=== PATIENT | female | born 1980 | race Caucasian/White ===

== ENCOUNTER 2020-09-08 10:05 | Outpatient (REF) | payer OTHER, SELFPAY | END 2020-09-08 10:06 | disposition home or self-care (01) | LOC: HO.LAB 10:05 | PROVIDERS: Visit Provider Internal Medicine | DX: Z20.828 Contact with and (suspected) exposure to other viral communicable diseases (principal) | CPT/HCPCS: C9803; U0003 ==

== ENCOUNTER 2020-10-15 07:01 | Outpatient (REF) | payer OTHER, SELFPAY | END 2020-10-15 07:02 | disposition home or self-care (01) | LOC: HO.LAB 07:01 | PROVIDERS: PCP Internal Medicine; Visit Provider Internal Medicine | DX: Z20.828 Contact with and (suspected) exposure to other viral communicable diseases (principal) | CPT/HCPCS: C9803; U0003 ==

== ENCOUNTER 2020-11-20 06:46 | Outpatient (REF) | payer OTHER, SELFPAY ==
[2020-11-20 07:07] LABS: MANUAL DIFF FLAG NO
[2020-11-20 07:16] LABS: Basophils Percent Auto 0.3 % (0-2); Eosinophils Absolute Auto 0.2 X10*3/uL (0.0-0.4); Eosinophils Percent Auto 3.5 % (0-4); Hematocrit 39.5 % (37-47); Hemoglobin 12.7 g/dl (12.0-16.0); Imm Gran Abs Auto 0.01 X10*3/uL (0.00-0.03); Imm Gran Pct Auto 0.2 % (0.0-0.4); Lymphocytes Absolute Auto 2.8 X10*3/uL (1.2-4.9); Lymphocytes Percent Auto 44.3 % (20-40); Mean Corpuscular HGB Conc 32.2 g/dl (31.0-35.0); Mean Corpuscular Hemoglobin 28.7 pg (27.0-33.0); Mean Corpuscular Volume 89.4 fL (80-98); Mean Platelet Volume 9.7 fL (9.4-12.3); Monocytes Absolute Auto 0.4 X10*3/uL (0.1-1.2); Monocytes Percent Auto 6.3 % (2-11); Neutrophils Absolute Auto 2.9 X10*3/uL (2.0-8.3); Neutrophils Percent Auto 45.4 % (45-73); Platelet Count 258 X10*3/uL (160-400); Red Blood Count 4.42 X10*6/uL (4.20-5.50); Red Cell Distribution Width 12.6 % (11.0-16.0); White Blood Count 6.4 X10*3/uL (4.8-10.8)
[2020-11-20 07:37] LABS: Alanine Aminotransferase 11 U/L (0-31); Albumin Level 4.2 g/dL (3.5-5.0); Alkaline Phosphatase 60 U/L (39-117); Anion Gap 12 (12-20); Aspartate Amino Transferase 19 U/L (5-31); Bilirubin Total 0.4 mg/dL (0.0-1.0); Blood Urea Nitrogen 13 mg/dL (9-16); Calcium 8.8 mg/dL (8.4-10.2); Carbon Dioxide 29 mmol/L (22-29); Chloride 102 mmol/L (96-108); Cholesterol 183 mg/dL; Estimated Glomerular Filt Rate > 60; Glucose Random 84 mg/dL (60-115); HDL Cholesterol 51 mg/dL; LDL Cholesterol Calculated 116 mg/dl; Potassium 4.1 mmol/l (3.3-5.1); Sodium 139 mmol/L (135-145); Total Protein 6.8 g/dL (6.5-8.0); Triglycerides 81 mg/dL
[2020-11-20 08:00] LABS: Glucose Urine UA NEG (NEG); Leukocyte Esterase Urine 2+ (NEG); Nitrite Urine NEG (NEG); PH 6.5 (5.0-8.0); Urine Blood 3+ (NEG); Urine Ketones NEG (NEG); Urine Protein NEG (NEG-TRACE)
[2020-11-20 08:01] LABS: Free T4 (Free Thyroxine) 0.82 ng/dL (0.71-1.85); Thyroid Stimulating Hormone 1.03 uIU/mL (0.32-4.0); Vitamin D 25-OH Total 14.1 ng/mL (>30)
[2020-11-20 08:03] LABS: Appearance Urine HAZY; Color Urine YELLOW
[2020-11-20 08:23] LABS: Bacteria Urine 1+ /LPF; Squamous Epithelial Cell Urine 2+ /LPF
[2020-11-20 09:11] LABS: Folate 12.3 ng/mL (> or = 4.0); Vitamin B12 174 pg/mL (200-900)
== END 2020-11-20 06:47 | disposition home or self-care (01) ==
LOC: HO.LAB 06:46
PROVIDERS: Visit Provider Internal Medicine
DX: Z00.00 Encounter for general adult medical examination without abnormal findings (principal); E78.00 Pure hypercholesterolemia, unspecified; C44.310 Basal cell carcinoma of skin of unspecified parts of face
CPT/HCPCS: 36415; 80053; 80061; 81001; 82306; 82607; 82746; 84439; 84443; 85025

== ENCOUNTER 2020-12-29 14:07 | Outpatient (REF) | payer OTHER, SELFPAY ==
--- NOTE | ~2020-12-29 | MM_ITS ---
EXAMINATION: MM SCREENING DIGITAL BREAST TOMOSYNTHESIS, BILATERAL CLINICAL INFORMATION: Screening. Asymptomatic. The lifetime risk of breast cancer based on the Tyrer-Cuzick Model is 9%. COMPARISON: Mammography: 10/21/2019, 10/13/2018 (baseline) TECHNIQUE: Digital breast tomosynthesis is performed in both the craniocaudal and mediolateral oblique views along with computer-aided detection (CAD). Synthesized 2D images are generated from the tomosynthesis. Additional left CC view is provided. FINDINGS: There are scattered areas of fibroglandular density (ACR BI-RADS breast composition Category b). There are no significant masses, abnormal calcifications, or other abnormalities. Parenchymal pattern is similar to prior exams. MM/MM tomosynthesis screening BI IMPRESSION: No mammographic evidence of malignancy. ASSESSMENT: BI-RADS 1: Negative RECOMMENDATION: Routine annual mammography screening. This patient's information was entered into a reminder system with a target due date for their next mammogram.
== END 2020-12-29 14:08 | disposition home or self-care (01) ==
LOC: HO.MAMMO 14:07
PROVIDERS: PCP Internal Medicine; Visit Provider Internal Medicine
DX: Z12.31 Encounter for screening mammogram for malignant neoplasm of breast (principal)
CPT/HCPCS: 77063; 77067

== ENCOUNTER 2021-11-19 06:17 | Outpatient (REF) | payer OTHER, SELFPAY ==
--- NOTE | ~2021-11-19 | XR_ITS ---
EXAMINATION: BILATERAL KNEES. CLINICAL INFORMATION: Pain right knee COMPARISON: None TECHNIQUE: 4 views each knee. FINDINGS: Right knee: The tricompartment joint space is maintained normal. No bony erosive changes. No loose bodies. No joint effusion. The soft tissues are normal. Left knee: The tricompartment joint space is maintained normal. No visible loose bodies or bony erosive changes. The soft tissues are normal. No abnormal joint effusion seen. XR/XR knee LT 4V IMPRESSION: Unremarkable bilateral knee exam.
--- NOTE | ~2021-11-19 | XR_ITS ---
EXAMINATION: BILATERAL KNEES. CLINICAL INFORMATION: Pain right knee COMPARISON: None TECHNIQUE: 4 views each knee. FINDINGS: Right knee: The tricompartment joint space is maintained normal. No bony erosive changes. No loose bodies. No joint effusion. The soft tissues are normal. Left knee: The tricompartment joint space is maintained normal. No visible loose bodies or bony erosive changes. The soft tissues are normal. No abnormal joint effusion seen. XR/XR knee RT 4V IMPRESSION: Unremarkable bilateral knee exam.
[2021-11-19 06:31] LABS: MANUAL DIFF FLAG NO
[2021-11-19 07:10] LABS: Basophils Percent Auto 0.3 % (0-2); Eosinophils Absolute Auto 0.4 X10*3/uL (0.0-0.4); Eosinophils Percent Auto 5.3 % (0-4); Hematocrit 40.5 % (37.0-47.0); Hemoglobin 12.9 g/dl (12.0-16.0); Imm Gran Abs Auto 0.02 X10*3/uL (0.00-0.03); Imm Gran Pct Auto 0.3 % (0.0-0.4); Lymphocytes Percent Auto 42.1 % (20-40); Mean Corpuscular HGB Conc 31.9 g/dl (31.0-35.0); Mean Corpuscular Hemoglobin 28.4 pg (27.0-33.0); Mean Platelet Volume 10.1 fL (9.4-12.3); Monocytes Absolute Auto 0.4 X10*3/uL (0.1-1.2); Monocytes Percent Auto 5.3 % (2-11); Neutrophils Absolute Auto 3.3 x10*3/uL (2.0-8.3); Neutrophils Percent Auto 46.7 % (45-73); Platelet Count 274 X10*3/uL (160-400); Red Blood Count 4.55 X10*6/uL (4.20-5.50); Red Cell Distribution Width 12.5 % (11.0-16.0)
[2021-11-19 07:31] LABS: Alanine Aminotransferase 18 U/L (0-31); Albumin Level 4.1 g/dL (3.5-5.0); Alkaline Phosphatase 61 U/L (39-117); Anion Gap 10 (12-20); Aspartate Amino Transferase 22 U/L (5-31); Bilirubin Total 0.4 mg/dL (0.0-1.0); Blood Urea Nitrogen 10 mg/dL (9-16); Calcium 9.2 mg/dL (8.4-10.2); Carbon Dioxide 29 mmol/L (22-29); Chloride 105 mmol/L (96-108); Cholesterol 205 mg/dL; Estimated Glomerular Filt Rate > 60; Glucose Random 90 mg/dL (60-115); HDL Cholesterol 49 mg/dL; LDL Cholesterol Calculated 138 mg/dl; Potassium 4.3 mmol/L (3.3-5.1); Sodium 140 mmol/L (135-145); Total Protein 7.1 g/dL (6.5-8.0); Triglycerides 91 mg/dL
[2021-11-19 07:54] LABS: Free T4 (Free Thyroxine) 0.83 ng/dL (0.71-1.85); Thyroid Stimulating Hormone 1.71 uIU/mL (0.32-4.0); Vitamin D 25-OH Total 15.6 ng/mL (>30)
[2021-11-19 08:07] LABS: Folate 14.3 ng/mL (> or = 4.0); Vitamin B12 236 pg/mL (200-900)
[2021-11-19 09:10] LABS: Appearance Urine HAZY; Color Urine YELLOW; Glucose Urine UA NEG (NEG); Leukocyte Esterase Urine TRACE (NEG); Nitrite Urine NEG (NEG); Urine Blood NEG (NEG); Urine Ketones NEG (NEG); Urine Protein NEG (NEG-TRACE)
[2021-11-19 09:19] LABS: Bacteria Urine 2+ /LPF; Mucus Urine 1+ /LPF; RBC Urine 0 /HPF (0); Squamous Epithelial Cell Urine 3+ /LPF
[2021-11-22 23:16] LABS: Intrinsic Factor Antibodies Negative (Negative)
[2021-11-22 23:51] LABS: Parietal Cell Antibody 35.4 Unit (<=20.0)
== END 2021-11-19 06:18 | disposition home or self-care (01) ==
LOC: HO.LAB 06:17
PROVIDERS: PCP Internal Medicine; Visit Provider Internal Medicine
DX: E53.8 Deficiency of other specified B group vitamins (principal); E78.00 Pure hypercholesterolemia, unspecified; M25.561 Pain in right knee; M25.562 Pain in left knee
CPT/HCPCS: 36415; 73564; 80053; 80061; 81001; 82306; 82607; 82746; 83516; 84439; 84443; 85025; 86340

== ENCOUNTER 2021-12-16 08:46 | Outpatient (REF) | payer OTHER, SELFPAY ==
--- NOTE | ~2021-12-16 | FL_ITS ---
EXAMINATION: XR UPPER GI AIR-CONTRAST SERIES CLINICAL INFORMATION: Dysphagia. COMPARISON: None. TECHNIQUE: Routine upper GI air-contrast study was performed. In upright and lying position. FINDINGS: Following oral administration of thick barium and effervescent granules in upright view, there is normal propagation of bolus from the oral cavity through the pharynx and esophagus and into the stomach without any evidence of obstruction, narrowing or stricture. On placing patient supine and prone lying, the course, caliber and peristalsis of the stomach, duodenal bulb and the sweep are normal. There is significant gastroesophageal reflux in the right lateral view without hiatal hernia. The mucosal pattern of the esophagus, stomach and the duodenum is normal. FLUOROSCOPY TIME: 1.6 minutes DOSE AREA PRODUCT: 16.735 uGy-m2 (microgray-meter squared) FL/FL upper GI w air IMPRESSION: Large gastroesophageal reflux without hiatal hernia.
== END 2021-12-16 08:47 | disposition home or self-care (01) ==
LOC: HO.XRAY 08:46
PROVIDERS: PCP Internal Medicine; Visit Provider Internal Medicine
DX: K21.9 Gastro-esophageal reflux disease without esophagitis (principal); R13.10 Dysphagia, unspecified
CPT/HCPCS: 74240; 74246

== ENCOUNTER 2022-01-01 09:52 | Outpatient (REF) | payer OTHER, SELFPAY ==
--- NOTE | ~2022-01-01 | MM_ITS ---
EXAMINATION: MM SCREENING DIGITAL BREAST TOMOSYNTHESIS, BILATERAL CLINICAL INFORMATION: Screening. Asymptomatic. The lifetime risk of breast cancer based on the Tyrer-Cuzick Model is 17%. COMPARISON: Mammography: 12/29/2020, 10/21/2019, 10/13/2018 TECHNIQUE: Digital breast tomosynthesis is performed in both the craniocaudal and mediolateral oblique views along with computer-aided detection (CAD). Synthesized 2D images are generated from the tomosynthesis. FINDINGS: There are scattered areas of fibroglandular density (ACR BI-RADS breast composition Category b). There are no significant masses, abnormal calcifications, or other abnormalities. Parenchymal pattern is similar to prior studies. There is no developing density or architectural abnormality. The axilla and skin contours are unremarkable. No significant changes. MM/MM tomosynthesis screening BI IMPRESSION: No mammographic evidence of malignancy. ASSESSMENT: BI-RADS 1: Negative RECOMMENDATION: Routine annual mammography screening. This patient's information was entered into a reminder system with a target due date for their next mammogram.
== END 2022-01-01 09:53 | disposition home or self-care (01) ==
LOC: HO.MAMMO 09:52
PROVIDERS: PCP Internal Medicine; Visit Provider Internal Medicine
DX: Z12.31 Encounter for screening mammogram for malignant neoplasm of breast (principal)
CPT/HCPCS: 77063; 77067

== ENCOUNTER 2022-01-20 07:40 | Outpatient (REF) | payer OTHER, SELFPAY ==
[2022-01-21 08:56] LABS: H Pylori Breath Test Negative (Negative)
== END 2022-01-20 07:41 | disposition home or self-care (01) ==
LOC: HO.LNP 07:40
PROVIDERS: PCP Internal Medicine; Referring Provider Internal Medicine; Visit Provider Physician Assistant
DX: K21.9 Gastro-esophageal reflux disease without esophagitis (principal); R14.0 Abdominal distension (gaseous)
CPT/HCPCS: 83013

== ENCOUNTER 2023-03-14 07:16 | Outpatient (REF) | payer OTHER, SELFPAY ==
--- NOTE | ~2023-03-14 | MM_ITS ---
EXAMINATION: MM SCREENING DIGITAL BREAST TOMOSYNTHESIS, BILATERAL CLINICAL INFORMATION: Screening. Asymptomatic. The lifetime risk of breast cancer based on the Tyrer-Cuzick Model is 19%. COMPARISON: Mammography: 01/01/2022, 12/29/2020, 10/21/2019 TECHNIQUE: Digital breast tomosynthesis is performed in both the craniocaudal and mediolateral oblique views along with computer-aided detection (CAD). Synthesized 2D images are generated from the tomosynthesis. FINDINGS: There are scattered areas of fibroglandular density (ACR BI-RADS breast composition Category b). There are no significant masses, abnormal calcifications, or other abnormalities. No architectural abnormality or developing density or significant change from prior studies. The axilla and skin contours are unremarkable. MM/MM tomosynthesis screening BI IMPRESSION: No mammographic evidence of malignancy. ASSESSMENT: BI-RADS 1: Negative RECOMMENDATION: Routine annual mammography screening. This patient's information was entered into a reminder system with a target due date for their next mammogram.
== END 2023-03-14 07:17 | disposition home or self-care (01) ==
LOC: HO.MAMMO 07:16
PROVIDERS: PCP Internal Medicine; Visit Provider Internal Medicine
DX: Z12.31 Encounter for screening mammogram for malignant neoplasm of breast (principal)
CPT/HCPCS: 77063; 77067

== ENCOUNTER 2023-04-02 06:01 | Outpatient (REF) | payer OTHER, SELFPAY ==
[2023-04-02 06:13] LABS: MANUAL DIFF FLAG NO
[2023-04-02 07:34] LABS: Basophils Percent Auto 0.6 % (0-2); Eosinophils Absolute Auto 0.3 X10*3/uL (0.0-0.4); Eosinophils Percent Auto 4.4 % (0-4); Hemoglobin 12.9 g/dl (12.0-16.0); Imm Gran Abs Auto 0.02 X10*3/uL (0.00-0.03); Imm Gran Pct Auto 0.3 % (0.0-0.4); Lymphocytes Percent Auto 43.1 % (20-40); Mean Corpuscular HGB Conc 32.3 g/dl (31.0-35.0); Mean Corpuscular Hemoglobin 28.9 pg (27.0-33.0); Mean Corpuscular Volume 89.5 fL (80.0-98.0); Mean Platelet Volume 10.3 fL (9.4-12.3); Monocytes Absolute Auto 0.5 X10*3/uL (0.1-1.2); Monocytes Percent Auto 6.7 % (2-11); Neutrophils Absolute Auto 3.1 x10*3/uL (2.0-8.3); Neutrophils Percent Auto 44.9 % (45-73); Platelet Count 250 X10*3/uL (160-400); Red Blood Count 4.47 X10*6/uL (4.20-5.50); White Blood Count 6.9 X10*3/uL (4.8-10.8)
[2023-04-02 08:28] LABS: Appearance Urine Clear; Color Urine Yellow; Glucose Urine UA Negative (Negative); Leukocyte Esterase Urine Small (1+) (Negative); Nitrite Urine Negative (Negative); UMIC TRIGGER UA YES; Urine Blood Negative (Negative); Urine Ketones Negative (Negative); Urine Protein Negative (Neg-Trace)
[2023-04-02 08:31] LABS: Bacteria Urine Trace (None Seen); Hyaline Casts Urine 0-2 /LPF (0-2); RBC Urine 0-2 /HPF (0-2)
[2023-04-02 08:59] LABS: Alanine Aminotransferase 17 U/L (0-31); Albumin Level 4.1 g/dL (3.5-5.0); Alkaline Phosphatase 56 U/L (39-117); Anion Gap 12 (12-20); Aspartate Amino Transferase 22 U/L (5-31); Bilirubin Direct 0.1 mg/dL (0.0-0.5); Bilirubin Total 0.4 mg/dL (0.0-1.0); Blood Urea Nitrogen 15 mg/dL (9-16); Carbon Dioxide 26 mmol/L (22-29); Chloride 107 mmol/L (96-108); Estimated Glomerular Filt Rate > 60; Glucose Random 88 mg/dL (60-115); Potassium 4.6 mmol/L (3.3-5.1); Sodium 140 mmol/L (135-145); Total Protein 6.8 g/dL (6.5-8.0)
[2023-04-02 09:30] LABS: Folate 12.8 ng/mL (> or = 4.0); Free T4 (Free Thyroxine) 0.86 ng/dL (0.71-1.85); Thyroid Stimulating Hormone 2.23 uIU/mL (0.32-4.0); Vitamin B12 220 pg/mL (200-900); Vitamin D 25-OH Total 21.8 ng/mL (>30)
== END 2023-04-02 06:02 | disposition home or self-care (01) ==
LOC: HO.LAB 06:01
PROVIDERS: PCP Internal Medicine; Visit Provider Internal Medicine
DX: K21.9 Gastro-esophageal reflux disease without esophagitis (principal); R79.89 Other specified abnormal findings of blood chemistry; E66.3 Overweight; E55.9 Vitamin D deficiency, unspecified; E78.00 Pure hypercholesterolemia, unspecified
CPT/HCPCS: 36415; 80053; 81001; 82248; 82306; 82607; 82746; 84439; 84443; 85025

== ENCOUNTER 2024-04-05 16:12 | Outpatient (AMB) | payer OTHER, SELFPAY ==
[2024-04-05 16:26] VITALS: BP 106/72; PULSE 74; O2SAT 98; BMI 28.1
--- NOTE | 2024-04-05 16:26 | A.OFFPC_ITS ---
Vital Signs 04/05/24 16:26 Height 5 ft 6 in Weight 174 lb BMI 28.1 BP 106/72 Blood Pressure Location Lt brachial Position Sitting Pulse 74 Pulse Source Pulse Oximeter Pulse Oximetry (%) 98 Oxygen Delivery Method Room Air Intake Visit Reasons: Annual Exam Gun Numberer Required: No Allergies No Known Allergies Allergy (Verified 04/05/24 16:26) Tobacco use date assessed: 04/05/24 Dental Screening Dental Screen Date: 04/05/24 Did you have a dental visit in the last 12 months?: Yes Did you have a dental problem in the last 6 months where you did not have access to dental care?: No Was dental information given to patient?: Patient has dentist HPI Annual Exam HPI Details 43-year-old overweight female with GERD vitamin B12 deficiency hypercholesterolemia last seen in 03/21/2023. Patient is here for physical exam last mammogram was done in 03/21/2023. [facility] Medical History (Updated 04/05/24 @ 16:41 by Chaka Michaels MD) Facial basal cell cancer Overweight (BMI 25.0-29.9) Surgical History H/O bilateral salpingectomy History of miscarriage History of tumor Family History (Updated 04/01/23 @ 11:07 by Shabana Bloom CMA) Father Myocardial infarction Mother Cancer, Onset Age: 29 Daughter Major depression Mental health disorder Social History (Updated 04/05/24 @ 16:45 by Chaka Michaels MD) Housing: Apartment Alcohol intake: current Comment: once Q month Patient Tobacco Use Status: Never used Tobacco e-Cigarette/Vaping Use: Never Used Second Hand Smoke Exposure: No Current occupational status: employed Cognitive needs: No Hearing needs: No Vision needs: No Questionnaire PHQ-9 Over the last 2 weeks, how often have you been bothered by any of the following problems? 1. Little interest or pleasure in doing things: not at all 2. Feeling down, depressed, or hopeless: not at all 3. Trouble falling or staying asleep, or sleeping too much: not at all 4. Feeling tired or having little energy: not at all 5. Poor appetite or overeating: not at all 6. Feeling bad about yourself - or that you are a failure or have let yourself or your family down: not at all 7. Trouble concentrating on things, such as reading the newspaper or watching t elevision: not at all 8. Moving or speaking so slowly that other people could have noticed. Or the opposite - being so fidgety or restless that you have been moving around a lot more than usual: not at all 9. Thoughts that you would be better off or of hurting yourself in some way: not at all Total score: 0 Depression Screening Interpretation: Negative Depression Screening Done: Yes 36503 - PHQ-9 Billing: Yes Source: Developed by Drs. Jagdeep Lopez, Yancy Morrow, Sumanth Mckeon and colleagues, with an educational farida from [employer]. Thrive Questionnaire Date Thrive assessed: 04/05/24 I am a: Patient What is your living situation today?: I have a steady place to live Within the past 12 months, did the food you bought not last and you didn't have the money to get more?: Never true Within the past 12 months, did you worry whether your food would run out before you got money to buy more?: Never true Do you have trouble paying for medicines?: No Do you have trouble getting transportation to medical appointments?: No Do you have trouble paying your heating and electricity bill?: No Do you have trouble taking care of your child, family member or friend?: No Do you have trouble with day-to-day activities such as bathing, preparing meals, shopping, managing finances, etc.?: No Are you currently unemployed and looking for a job?: No Are you interested in more education?: No Please select the resources that you would like help with: None Currently or been in a relationship where the following occur: no concerns reported THRIVE Score: 0 AUDIT C Alcohol Use Questionnaire (AUDIT-C) 1. How often do you have a drink containing alcohol?: Never 3. How often do you have six or more drinks on one occasion?: Never Total Score: 0 DONALDO-7 AMB Questionnaire DONALDO-7 Date DONALDO - 7 assessed: 04/05/24 Feeling nervous, anxious, or on edge: 0 = Not at all Not being able to stop or control worryin = Not at all Worrying too much about different things: 0 = Not at all Trouble relaxin = Not at all Being so restless that it is hard to sit still: 0 = Not at all Becoming easily annoyed or irritable: 0 = Not at all Feeling afraid as if something awful might happen: 0 = Not at all Total DONALDO-7 score (0-4 normal; 5-9 mild; 10-14 moderate; 15-21 severe): 0 Source: Developed by Drs. Jagdeep Lopez, Yancy Morrow, Sumanth Mckeon and colleagues, with an educational farida from [employer]. DONALDO-7 Assessment Billing DONALDO-7 Assessment Tool: DONALDO-7 Assessment 83628 Review of Systems Const Denies poor appetite and Denies weakness Eyes Denies no additional complaints ENT Reports Normal hearing present, Denies dizziness, Denies nasal congestion, Den ies tinnitus and Denies sore throat Card Denies chest pain, Denies syncope, Denies rapid heart rate and Denies dyspnea Resp Denies cough and Denies dyspnea GI Denies change in stool character, Reports constipation, Denies diarrhea, Denies nausea and Denies vomiting Denies urinary frequency, Denies difficulty voiding and Denies dysuria Neuro Reports Normal hearing present, Denies confusion, Denies dizziness, Denies syncope and Denies weakness Psych Denies confusion Physical exam (Primary Care) Vital Signs: Last Vital Signs Pulse 74 04/05/24 16:26 BP 106/72 04/05/24 16:26 Pulse Ox 98 04/05/24 16:26 Oxygen Delivery Method Room Air 04/05/24 16:26 BMI result Body Mass Index 28.1 Tobacco/Smoking Status: Tobacco use Status Tobacco use date assessed 04/05/24 04/05/24 16:27 Patient Tobacco Use Status Never used Tobacco 04/05/24 16:27 e-Cigarette/Vaping Use Never Used 04/05/24 16:27 PHQ-9: PHQ-9 Score PHQ-9: Total score 0 04/05/24 16:32 Depression Screening Interpretation: Negative Thrive Assessment: Date of Thrive Assessment Date Thrive assessed 04/05/24 04/05/24 16:32 Currently or been in a relationship where the following occur: no concerns reported Const General: No confusion Orientation/consciousness: No confusion HENMT Head: Yes normocephalic Ears: external ears normal and TM's normal bilaterally Face and sinus: Yes normal facial exam Mouth: moist mucous membranes Throat: Yes tonsils normal Eyes Conjunctivae: conjunctivae normal Pupils: Equal, round and reactive pupils present and Pupil accommodation reflex normal Direct Ophthalmoscopy: normal light reflex Neck Neck: No lymphadenopathy Thyroid: Thyroid normal Chest Chest palpation & inspection: normal inspection of the chest Resp Effort & Inspection: normal respiratory effort and no audible wheezes Auscultation: clear to auscultation bilaterally, no crackles, no wheezes and lung sounds not diminished Cardio Rate: regular rate Rhythm: regular rhythm Peripheral pulses: radial pulses present and dorsalis pedis present GI Palpation (GI): no masses Auscultation: normal bowel sounds and normoactive bowel sounds Rectal Exam - Female: deferred Skin General skin exam: no rashes or lesions noted Rashes: no rashes Neuro General: No confusion Cranial nerves: Yes Equal, round and reactive pupils present and Yes Normal hearing present Cognition (Neuro): normal cognition Gait exam (Neuro): Normal gait present Motor exam (neuro): 5/5 motor strength present throughout Deep tendon reflexes (DTR's): Right brachioradialis reflex intensity grade: 2+, Left brachioradialis reflex intensity grade: 2+, Right patellar reflex intensity grade: 2+ and Left patellar reflex intensity grade: 2+ Extrem General: No edema Assessment and Plan Assessment & Plan (1) Annual physical exam: Code(s): Z00.00 - Encounter for general adult medical examination without abnormal findings Plan: Patient is advised to eat healthy, keep well hydrated, keep active and have adequate sleep. (2) Hypercholesterolemia: Code(s): E78.00 - Pure hypercholesterolemia, unspecified Plan: Avoid fried foods, chicken skin, eggs, butter margarine, pastries and meat. Be it pork or beef they have a lot of cholesterol LDL goal of less than 130 and triglyceride of less than 150 (3) Pernicious anemia: Comment: Parietal cell antibody November2021 Code(s): D51.0 - Vitamin B12 deficiency anemia due to intrinsic factor deficiency Plan: Continue to receive the vitamin B12 (4) GERD (gastroesophageal reflux disease): Comment: December 2020 upper GI series-large reflux-begin pantoprazole 40 mg daily avoid culprits Code(s): K21.9 - Gastro-esophageal reflux disease without esophagitis Plan: Avoid the foods that causes that usually spicy foods, tomato products, juices, coffee, soda and foods that your sensitive to. After eating do not lie down, allow 3-4 hours before in lie down. And keep the head of bed above 30 degrees to avoid the acid from going up. (5) Overweight (BMI 25.0-29.9): Code(s): E66.3 - Overweight Plan: Diet and exercise (6) Breast cancer screening by mammogram: Code(s): Z12.31 - Encounter for screening mammogram for malignant neoplasm of breast Plan: Reminded about the mammogram (7) Colon cancer screening: Code(s): Z12.11 - Encounter for screening for malignant neoplasm of colon Plan: Reminded about the start of colonoscopy Orders: Orders Complete Blood Count Auto Diff Today E78.00 - Pure hypercholesterolemia, unspecified Comprehensive Met. Panel Today E78.00 - Pure hypercholesterolemia, unspecified Thyroid Stimulating Hormone Today E78.00 - Pure hypercholesterolemia, unspecified Vitamin D 25-OH Total Today E78.00 - Pure hypercholesterolemia, unspecified Lipid Panel Today E78.00 - Pure hypercholesterolemia, unspecified UA CC w/rflx Micro + Cult Today E78.00 - Pure hypercholesterolemia, unspecified, R30.0 - Dysuria Free T4 (Free Thyroxine) Today E78.00 - Pure hypercholesterolemia, unspecified Vitamin B12 and Folate Today E78.00 - Pure hypercholesterolemia, unspecified Referrals Gastroenterology Referral Z12.11 - Encounter for screening for malignant neoplasm of colon Coding Level of Care Code Est Pt Prev Care 40-64y(99372) Diagnoses Annual physical exam Z00.00 Hypercholesterolemia E78.00 Pernicious anemia D51.0 GERD (gastroesophageal reflux disease) K21.9 Overweight (BMI 25.0-29.9) E66.3 Breast cancer screening by mammogram Z12.31 Colon cancer screening Z12.11 Additional Codes DONALDO-7 Assessment Billing - DONALDO-7 Assessment Tool: DONALDO-7 Assessment 45408 ([id number])
== END 2024-04-05 16:58 | disposition home or self-care (01) ==
PROVIDERS: Visit Provider Internal Medicine
DX: Z00.00 Encounter for general adult medical examination without abnormal findings (principal); E78.00 Pure hypercholesterolemia, unspecified; D51.0 Vitamin B12 deficiency anemia due to intrinsic factor deficiency; K21.9 Gastro-esophageal reflux disease without esophagitis; E66.3 Overweight; Z12.31 Encounter for screening mammogram for malignant neoplasm of breast; Z12.11 Encounter for screening for malignant neoplasm of colon
CPT/HCPCS: 99396

== ENCOUNTER 2024-04-07 14:21 | Outpatient (REF) | payer OTHER, SELFPAY | END 2024-04-07 14:22 | disposition home or self-care (01) | LOC: HO.MAMMO 14:21 | PROVIDERS: PCP Internal Medicine; Visit Provider Internal Medicine | DX: Z12.31 Encounter for screening mammogram for malignant neoplasm of breast (principal) | CPT/HCPCS: 77063; 77067 ==

== ENCOUNTER → 2024-04-07 14:30 | Outpatient (BNV) | payer OTHER, SELFPAY | PROVIDERS: PCP Internal Medicine; Visit Provider Radiology Diagnostic Radiology | DX: Z12.31 Encounter for screening mammogram for malignant neoplasm of breast (principal) | CPT/HCPCS: 77063; 77067 ==

== ENCOUNTER 2024-04-09 07:31 | Outpatient (REF) | payer OTHER, SELFPAY ==
[2024-04-09 07:48] LABS: MANUAL DIFF FLAG NO
[2024-04-09 07:55] LABS: Basophils Percent Auto 0.5 % (0-2); Eosinophils Absolute Auto 0.2 X10*3/uL (0.0-0.4); Eosinophils Percent Auto 3.8 % (0-4); Hematocrit 39.8 % (37.0-47.0); Hemoglobin 13.3 g/dl (12.0-16.0); Imm Gran Abs Auto 0.01 X10*3/uL (0.00-0.03); Imm Gran Pct Auto 0.2 % (0.0-0.4); Lymphocytes Absolute Auto 2.1 X10*3/uL (1.2-4.9); Lymphocytes Percent Auto 33.6 % (20-40); Mean Corpuscular HGB Conc 33.4 g/dl (31.0-35.0); Mean Corpuscular Hemoglobin 29.4 pg (27.0-33.0); Mean Corpuscular Volume 87.9 fL (80.0-98.0); Mean Platelet Volume 9.7 fL (9.4-12.3); Monocytes Absolute Auto 0.4 X10*3/uL (0.1-1.2); Monocytes Percent Auto 6.2 % (2-11); Neutrophils Absolute Auto 3.4 x10*3/uL (2.0-8.3); Neutrophils Percent Auto 55.7 % (45-73); Platelet Count 249 X10*3/uL (160-400); Red Blood Count 4.53 X10*6/uL (4.20-5.50); White Blood Count 6.1 X10*3/uL (4.8-10.8)
[2024-04-09 08:41] LABS: Alanine Aminotransferase 15 U/L (0-31); Albumin Level 4.1 g/dL (3.5-5.0); Alkaline Phosphatase 59 U/L (39-117); Anion Gap 8 (12-20); Aspartate Amino Transferase 22 U/L (5-31); Bilirubin Total 0.2 mg/dL (0.0-1.0); Blood Urea Nitrogen 14 mg/dL (9-16); Calcium 9.7 mg/dL (8.4-10.2); Carbon Dioxide 31 mmol/L (22-29); Chloride 105 mmol/L (96-108); Cholesterol 196 mg/dL (<200); Estimated Glomerular Filt Rate > 60; Glucose Random 93 mg/dL (60-115); HDL Cholesterol 47 mg/dL (>40); LDL Cholesterol Calculated 123 mg/dL (<100); Potassium 4.3 mmol/L (3.3-5.1); Sodium 140 mmol/L (135-145); Total Protein 7.1 g/dL (6.5-8.0); Triglycerides 131 mg/dL (<150)
[2024-04-09 09:00] LABS: Free T4 (Free Thyroxine) 0.88 ng/dL (0.71-1.85); Vitamin D 25-OH Total 27.1 ng/mL (>30)
[2024-04-09 09:11] LABS: Folate 9.2 ng/mL (> or = 4.0); Vitamin B12 176 pg/mL (200-900)
[2024-04-09 09:42] LABS: Appearance Urine Clear; Color Urine Yellow; Glucose Urine UA Negative (Negative); Leukocyte Esterase Urine Moderate (2+) (Negative); Nitrite Urine Negative (Negative); Specific Gravity - Urine 1.025 (1.005-1.025); UMIC TRIGGER UACC YES; Urine Blood Negative (Negative); Urine Ketones Trace mg/dL (Negative); Urine Protein Negative (Neg-Trace)
[2024-04-09 09:48] LABS: Bacteria Urine 1+ (None Seen); Hyaline Casts Urine 0-2 /LPF (0-2); RBC Urine 0-2 /HPF (0-2); UACC Culture Trigger YES
== END 2024-04-09 07:32 | disposition home or self-care (01) ==
LOC: HO.LAB 07:31
PROVIDERS: PCP Internal Medicine; Visit Provider Internal Medicine
DX: E78.00 Pure hypercholesterolemia, unspecified (principal); R82.90 Unspecified abnormal findings in urine
CPT/HCPCS: 36415; 80053; 80061; 81001; 82306; 82607; 82746; 84439; 84443; 85025; 87086

== ENCOUNTER 2024-07-22 11:28 | Outpatient (REF) | payer OTHER, SELFPAY ==
--- NOTE | ~2024-07-22 | XR_ITS ---
EXAMINATION: XR LUMBOSACRAL SPINE CLINICAL INFORMATION: Low back pain. COMPARISON: None available. TECHNIQUE: Three views of the lumbosacral spine. FINDINGS: No acute cortical disruption or malalignment. Spina bifida occulta, S1, congenital variant. Sclerosis and the sacroiliac joints. No lytic or blastic lesions. XR/XR lumbar spine 2-3V IMPRESSION: No acute fracture or listhesis. Electronically signed by: Toni Quick MD 09/09/2024 03:06 PM [facility]OR[facility] MONROY
== END 2024-07-22 11:29 | disposition home or self-care (01) ==
LOC: HO.XRAY 11:28
PROVIDERS: PCP Internal Medicine; Visit Provider Internal Medicine
DX: M54.50 Low back pain, unspecified (principal)
CPT/HCPCS: 72100

== ENCOUNTER 2024-07-22 11:28 | Outpatient (AMB) | payer OTHER, SELFPAY ==
--- NOTE | 2024-07-22 11:28 | MHC.PC.OV ---
Vital Signs 07/22/24 11:29 Height 5 ft 6 in Weight 175 lb 8 oz BMI 28.3 BP 130/64 Blood Pressure Location Lt brachial Position Sitting Pulse 74 Pulse Source Pulse Oximeter Pulse Oximetry (%) 98 Oxygen Delivery Method Room Air Intake Visit Reasons: back pain Intake Note: Patient is here to follow up on back pain. Book Mender Required: No Supervisor Housecleaner: Not Required per policy Accompanied by: Self / Same As Patient Allergies No Known Allergies Allergy (Verified 07/22/24 11:29) Tobacco use date assessed: 07/22/24 Dental Screening Dental Screen Date: 04/05/24 HPI back pain HPI Details 44-year-old overweight female with hypercholesterolemia pernicious anemia GERD last seen in 04/21/2024. Patient has been advised to get mammogram and reminded about colonoscopy. low back pain and was bending recenltydeny fall or trauma and states after the pain could not move and bilateral numbness on the legs - now this started yesterday. 2 months ago deny fall had low back pain also but this resolved spontaneously. Patient patient has just started with the vitamin B12 as she says she is not good with taking pills. Concern about this and that we will retest the B12 again in 3 months of taking it and if not any better will need shots going. [facility] Medical History (Updated 07/22/24 @ 11:54 by Chaka Michaels MD) Breast cancer screening by mammogram Facial basal cell cancer Overweight (BMI 25.0-29.9) Surgical History H/O bilateral salpingectomy History of tumor History of miscarriage Family History Father Myocardial infarction Mother Cancer, Onset Age: 29 Daughter Major depression Mental health disorder Social History Housing: Apartment Alcohol intake: current Comment: once Q month Patient Tobacco Use Status: Never used Tobacco e-Cigarette/Vaping Use: Never Used Second Hand Smoke Exposure: No service: No Current occupational status: employed Cognitive needs: No Hearing needs: No Vision needs: No Questionnaire Thrive Questionnaire Date Thrive assessed: 04/05/24 Are you currently unemployed and looking for a job?: No DONALDO-7 AMB Questionnaire DONALDO-7 Date DONALDO - 7 assessed: 04/05/24 Source: Developed by Drs. Jagdeep Lopez, Yancy Morrow, Sumanth Mckeon and colleagues, with an educational farida from [employer]. Physical exam (Primary Care) Vital Signs: Last Vital Signs Pulse 74 07/22/24 11:29 BP 130/64 07/22/24 11:29 Pulse Ox 98 07/22/24 11:29 Oxygen Delivery Method Room Air 07/22/24 11:29 BMI result Body Mass Index 28.3 Tobacco/Smoking Status: Tobacco use Status Tobacco use date assessed 07/22/24 07/22/24 11:34 Patient Tobacco Use Status Never used Tobacco 07/22/24 11:34 e-Cigarette/Vaping Use Never Used 07/22/24 11:34 Thrive Assessment: Date of Thrive Assessment Date Thrive assessed 04/05/24 07/22/24 11:34 Const General: alert; No acute distress Eyes Conjunctivae: conjunctivae normal Resp Auscultation: clear to auscultation bilaterally Cardio Rate: regular rate Rhythm: regular rhythm GI Inspection: Yes normal to inspection Back/Spine/Pelvis Other: normal walk , no limping , no weakness LE, states sensory problem on hand and legs Coccyx: Coccyx tenderness present Back/spine/pelvis image: 1. tenderness, declined lifting shirt and deny rash Extrem General: Yes normal to inspection and No edema Assessment and Plan Assessment & Plan (1) Colon cancer screening: Code(s): Z12.11 - Encounter for screening for malignant neoplasm of colon Plan: Patient has a schedule with Gastroenterology (2) Hypercholesterolemia: Code(s): E78.00 - Pure hypercholesterolemia, unspecified Plan: Avoid fried foods, chicken skin, eggs, butter margarine, pastries and meat. Be it pork or beef they have a lot of cholesterol LDL goal of less than 130 and triglyceride of less than 150 last blood work good (3) Pernicious anemia: Comment: Parietal cell antibody November2021 Code(s): D51.0 - Vitamin B12 deficiency anemia due to intrinsic factor deficiency Plan: Discussed with the patient that oral B12 would not help as patient is not able to absorb them. (4) GERD (gastroesophageal reflux disease): Comment: December 2020 upper GI series-large reflux-begin pantoprazole 40 mg daily avoid culprits Code(s): K21.9 - Gastro-esophageal reflux disease without esophagitis Plan: Avoid the foods that causes that usually spicy foods, tomato products, juices, coffee, soda and foods that your sensitive to. After eating do not lie down, allow 3-4 hours before in lie down. And keep the head of bed above 30 degrees to avoid the acid from going up. (5) Vitamin B 12 deficiency: Code(s): E53.8 - Deficiency of other specified B group vitamins Plan: Discussed with the patient that oral B12 is not getting absorbed. (6) Low back pain: Code(s): M54.50 - Low back pain, unspecified Plan: xr requested .heat and NSaid - Physical therapy requested. Orders: Orders Complete Blood Count Auto Diff 3 Months E53.8 - Deficiency of other specified B group vitamins Vitamin B12 and Folate 3 Months E53.8 - Deficiency of other specified B group vitamins XR lumbar spine 2-3V Today M54.50 - Low back pain, unspecified PT Evaluation and Treatment Today M54.50 - Low back pain, unspecified Medications: New meloxicam 15 mg PO DAILY 20 tabs 0RF M54.50 - Low back pain, unspecified cyclobenzaprine 5 mg PO TID PRN 30 tabs 0RF muscle spasm M54.50 - Low back pain, unspecified Coding Level of Care Code Est Pt Level 4 (93358) Diagnoses Colon cancer screening Z12.11 Hypercholesterolemia E78.00 Pernicious anemia D51.0 GERD (gastroesophageal reflux disease) K21.9 Vitamin B 12 deficiency E53.8 Low back pain M54.50
[2024-07-22 11:29] VITALS: BP 130/64; PULSE 74; O2SAT 98; BMI 28.3
== END 2024-07-22 12:00 | disposition home or self-care (01) ==
PROVIDERS: PCP Internal Medicine; Visit Provider Internal Medicine
DX: E78.00 Pure hypercholesterolemia, unspecified (principal); Z12.11 Encounter for screening for malignant neoplasm of colon; D51.0 Vitamin B12 deficiency anemia due to intrinsic factor deficiency; K21.9 Gastro-esophageal reflux disease without esophagitis; M54.50 Low back pain, unspecified

== ENCOUNTER → 2024-07-22 12:12 | Outpatient (BNV) | payer OTHER, SELFPAY | PROVIDERS: PCP Internal Medicine; Visit Provider Radiology Diagnostic Radiology | DX: M54.50 Low back pain, unspecified (principal) | CPT/HCPCS: 72100 ==

== ENCOUNTER 2024-11-15 15:45 | Outpatient (AMB) | payer OTHER, SELFPAY ==
[2024-11-15 16:01] VITALS: BP 118/86; PULSE 80; TEMP 36.2; O2SAT 97; BMI 29.1
--- NOTE | 2024-11-15 16:01 | MHC.PC.OV ---
Vital Signs 11/15/24 16:01 Height 5 ft 6 in Weight 180 lb 8 oz BMI 29.1 BP 118/86 Blood Pressure Location Lt brachial Position Sitting Pulse 80 Pulse Source Pulse Oximeter Temp 97.1 F Temp Source Temporal Artery Scan Pulse Oximetry (%) 97 Oxygen Delivery Method Room Air Intake Visit Reasons: Xray results Family Health Nurse Practitioner Required: No Accompanied by: Self / Same As Patient Allergies No Known Allergies Allergy (Verified 11/15/24 16:06) Tobacco use date assessed: 11/15/24 Dental Screening Dental Screen Date: 11/15/24 Did you have a dental visit in the last 12 months?: Yes Did you have a dental problem in the last 6 months where you did not have access to dental care?: No Was dental information given to patient?: Patient has dentist HPI Xray results HPI Details The patient is a 44-year-old female presenting with chronic back pain. The onset of pain dates back to July. The patient experiences pain when sitting, lying down, and walking. She describes the pain as severe and debilitating, affecting daily activities despite wearing supportive footwear. There is noticeable pain radiating down the legs. The patient reports a significant impact on her ability to exercise, leading to a halt in sessions with a personal counselor. Previous interventions, including physical therapy, did not provide relief. 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 The patient inquires about alternative interventions such as steroid injections, although no arthritis was indicated in her reports. She seeks documentation to resume her fitness activities, having already invested in several classes. [facility] Medical History (Updated 11/15/24 @ 16:55 by Chaka Michaels MD) Breast cancer screening by mammogram Facial basal cell cancer Overweight (BMI 25.0-29.9) Surgical History H/O bilateral salpingectomy History of tumor History of miscarriage Family History Father Myocardial infarction Mother Cancer, Onset Age: 29 Daughter Major depression Mental health disorder Social History Housing: Apartment Alcohol intake: current Comment: once Q month Patient Tobacco Use Status: Never used Tobacco e-Cigarette/Vaping Use: Never Used Second Hand Smoke Exposure: No service: No Current occupational status: employed Cognitive needs: No Hearing needs: No Vision needs: No Questionnaire PHQ-9 Over the last 2 weeks, how often have you been bothered by any of the following problems? 1. Little interest or pleasure in doing things: not at all 2. Feeling down, depressed, or hopeless: not at all 3. Trouble falling or staying asleep, or sleeping too much: not at all 4. Feeling tired or having little energy: not at all 5. Poor appetite or overeating: not at all 6. Feeling bad about yourself - or that you are a failure or have let yourself or your family down: not at all 7. Trouble concentrating on things, such as reading the newspaper or watching television: not at all 8. Moving or speaking so slowly that other people could have noticed. Or the opposite - being so fidgety or restless that you have been moving around a lot more than usual: not at all 9. Thoughts that you would be better off or of hurting yourself in some way: not at all Total score: 0 Depression Screening Interpretation: Negative Depression Screening Done: Yes 03707 - PHQ-9 Billing: Yes Source: Developed by Drs. Jagdeep Lopez, Yancy Morrow, Sumanth Mckeon and colleagues, with an educational farida from [employer]. Thrive Questionnaire Date Thrive assessed: 11/15/24 I am a: Patient What is your living situation today?: I have a steady place to live Within the past 12 months, did the food you bought not last and you didn't have the money to get more?: Never true Within the past 12 months, did you worry whether your food would run out before you got money to buy more?: Never true Do you have trouble paying for medicines?: No Do you have trouble getting transportation to medical appointments?: No Do you have trouble paying your heating and electricity bill?: No Do you have trouble taking care of your child, family member or friend?: No Do you have trouble with day-to-day activities such as bathing, preparing meals, shopping, managing finances, etc.?: No Are you currently unemployed and looking for a job?: No Are you interested in more education?: No Please select the resources that you would like help with: None Currently or been in a relationship where the following occur: No concerns reported THRIVE Score: 0 AUDIT C Alcohol Use Questionnaire (AUDIT-C) 1. How often do you have a drink containing alcohol?: Never 3. How often do you have six or more drinks on one occasion?: Never Total Score: 0 DONALDO-7 AMB Questionnaire DONALDO-7 Date DONALDO - 7 assessed: 11/15/24 Feeling nervous, anxious, or on edge: 0 = Not at all Not being able to stop or control worryin = Not at all Worrying too much about different things: 0 = Not at all Trouble relaxin = Not at all Being so restless that it is hard to sit still: 0 = Not at all Becoming easily annoyed or irritable: 0 = Not at all Feeling afraid as if something awful might happen: 0 = Not at all Total DONALDO-7 score (0-4 normal; 5-9 mild; 10-14 moderate; 15-21 severe): 0 Source: Developed by Drs. Jagdeep Lopez, Yancy Morrow, Sumanth Mckeon and colleagues, with an educational farida from [employer]. DONALDO-7 Assessment Billing DONALDO-7 Assessment Tool: DONALDO-7 Assessment 67064 Physical exam (Primary Care) Vital Signs: Last Vital Signs Temp 97.1 F 11/15/24 16:01 Pulse 80 11/15/24 16:01 BP 118/86 11/15/24 16:01 Pulse Ox 97 11/15/24 16:01 Oxygen Delivery Method Room Air 11/15/24 16:01 BMI result Body Mass Index 29.1 Tobacco/Smoking Status: Tobacco use Status Tobacco use date assessed 11/15/24 11/15/24 16:07 Patient Tobacco Use Status Never used Tobacco 11/15/24 16:07 e-Cigarette/Vaping Use Never Used 11/15/24 16:07 PHQ-9: PHQ-9 Score PHQ-9: Total score 0 11/15/24 16:07 Depression Screening Interpretation: Negative Thrive Assessment: Date of Thrive Assessment Date Thrive assessed 11/15/24 11/15/24 16:07 Currently or been in a relationship where the following occur: No concerns reported Const General: alert; No acute distress Eyes Conjunctivae: conjunctivae normal Resp Auscultation: clear to auscultation bilaterally Cardio Rate: regular rate Rhythm: regular rhythm GI Inspection: Yes normal to inspection Extrem Other: Extremities: Normal to inspection, but patient reports significant back pain, particularly in the sacroiliac joint area, with scarring noted. Pain is exacerbated by sitting, lying down, and walking, and radiates down the legs. The patient reports congenital spinal variant (spina bifida) with incomplete closure of the spine. General: Yes normal to inspection and No edema Coding Level of Care Code Est Pt Level 4 (52251) Diagnoses Overweight (BMI 25.0-29.9) E66.3 GERD (gastroesophageal reflux disease) K21.9 Pernicious anemia D51.0 Hypercholesterolemia E78.00 Colon cancer screening Z12.11 Low back pain M54.50 Additional Codes DONALDO-7 Assessment Billing - DONALDO-7 Assessment Tool: DONALDO-7 Assessment 13095 ([id number]) PHQ-9 - 14160 - PHQ-9 Billing: Yes ([id number]) Assessment & Plan Assessment & Plan (1) Overweight (BMI 25.0-29.9): Code(s): E66.3 - Overweight Category: Medical (2) GERD (gastroesophageal reflux disease): Comment: December 2020 upper GI series-large reflux-begin pantoprazole 40 mg daily avoid culprits Code(s): K21.9 - Gastro-esophageal reflux disease without esophagitis Category: Medical (3) Pernicious anemia: Comment: Parietal cell antibody November2021 Code(s): D51.0 - Vitamin B12 deficiency anemia due to intrinsic factor deficiency Category: Medical (4) Hypercholesterolemia: Code(s): E78.00 - Pure hypercholesterolemia, unspecified Category: Medical (5) Colon cancer screening: Code(s): Z12.11 - Encounter for screening for malignant neoplasm of colon Category: Medical (6) Low back pain: Comment: X-ray in July 2024 showing spina bifida occulta, sclerosis sacroiliac joint. Code(s): M54.50 - Low back pain, unspecified Category: Medical Plan: Patient continues to complain of low back pain with feeling of neuropathy on both lower extremities and so advised to get MRI of the spine and referral to neurosurgeon Plan - Chronic back pain: Discuss the potential benefits and risks of corticosteroid injections for pain management. Consider referral to pain management for evaluation and further treatment options. - Sacroiliac joint scarring: Monitor for exacerbations and manage pain through conservative measures, including physical therapy and exercises as tolerated. - Congenital spinal defect: Educate patient on spina bifida occulta and its implications. Reassure that current findings do not require surgical intervention. - Arrange for a medical clearance letter to resume fitness activities to maximize physical health benefits and provide comprehensive care. - No refill of medications required at this time as per patient's current needs. - Advise the patient on maintaining adequate hydration and balanced nutrition to support overall health. Orders: Orders MR lumbar spine wo con Today M54.50 - Low back pain, unspecified Referrals Neurosurgery Referral M54.50 - Low back pain, unspecified Medications: Discontinued meloxicam Discontinued Reason: Patient Refused 15 mg PO DAILY 20 tabs 0RF M54.50 - Low back pain, unspecified cyclobenzaprine Discontinued Reason: Patient Completed Course 5 mg PO TID PRN 30 tabs 0RF muscle spasm M54.50 - Low back pain, unspecified
== END 2024-11-15 16:53 | disposition home or self-care (01) ==
PROVIDERS: PCP Internal Medicine; Visit Provider Internal Medicine
DX: E66.3 Overweight (principal); K21.9 Gastro-esophageal reflux disease without esophagitis; D51.0 Vitamin B12 deficiency anemia due to intrinsic factor deficiency; E78.00 Pure hypercholesterolemia, unspecified; Z12.11 Encounter for screening for malignant neoplasm of colon; M54.50 Low back pain, unspecified

== ENCOUNTER → 2024-11-15 15:45 | Outpatient (BNVA) | payer OTHER, SELFPAY | PROVIDERS: PCP Internal Medicine; Visit Provider Internal Medicine | DX: M54.50 Low back pain, unspecified (principal); E66.3 Overweight; K21.9 Gastro-esophageal reflux disease without esophagitis; D51.0 Vitamin B12 deficiency anemia due to intrinsic factor deficiency; E78.00 Pure hypercholesterolemia, unspecified; Q05.7 Lumbar spina bifida without hydrocephalus | CPT/HCPCS: 96127 ==

== ENCOUNTER 2024-12-04 08:27 | Outpatient (REF) | payer OTHER, SELFPAY ==
--- NOTE | ~2024-12-04 | MR_ITS ---
CLINICAL HISTORY: M54.50 - Low back pain, unspecified MR lumbar spine without gadolinium Comparison: None Findings: Normal alignment without acute fracture. No marrow infiltration. Conus terminates at L2 level. Unremarkable signal intensity of the visualized cord and conus medullaris. Disc dehydration at a few levels. L4/L5: Posterior annular fissure. 2 mm (AP) central disc protrusion without evidence of significant central canal stenosis. L3/L4: Up to 2.5 mm (AP dimension) disc protrusion in the inferior aspect of the left neural foramen associated with mild left neural foraminal compromise. T11/T12: On the sagittal view, a mildly inferiorly migrating up to 3 mm (AP dimension) left subarticular disc herniation cannot be excluded. Otherwise no evidence of significant central canal, lateral recess, or neural foraminal stenosis. IMPRESSION: T11/T12: On the sagittal view, a mildly inferiorly migrating up to 3 mm (AP dimension) left subarticular disc herniation cannot be excluded. Mild neural foraminal stenosis at a few levels. No evidence of significant central canal compromise. This document has been electronically signed by: Flor Kwon MD on 12/05/2024 10:05:02
== END 2024-12-04 08:28 | disposition home or self-care (01) ==
LOC: HO.MRI 08:27
PROVIDERS: PCP Internal Medicine; Visit Provider Internal Medicine
DX: M54.50 Low back pain, unspecified (principal)
CPT/HCPCS: 72148

== ENCOUNTER → 2024-12-04 08:33 | Outpatient (BNV) | payer OTHER, SELFPAY | PROVIDERS: PCP Internal Medicine; Visit Provider Radiology Diagnostic Radiology | DX: M54.50 Low back pain, unspecified (principal) | CPT/HCPCS: 72148 ==

== ENCOUNTER 2024-12-15 13:17 | Outpatient (AMB) | payer OTHER, SELFPAY ==
--- NOTE | 2024-12-15 13:20 | HO.SPINEOV ---
Vital Signs 12/15/24 13:25 Height 5 ft 7 in Weight 180 lb BMI 28.2 Intake Visit Reasons: LBP Intake Note: Ms. Zuñiga is here today c/o Low back pain causing tingling and numbness to her feet. 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 Code(s): M54.50 - Low back pain, unspecified Category: Medical Plan Dear Dr Michaels, Thank you for referring Mrs Zuñiga to our office today. She is a very nice, very active 44-year-old female presents to the office today for evaluation of a centralized low back pain that started in July of last year. It started 1 morning when she awoke with acute onset of pain. Since that time she has had a lot of difficulty with centralized lower lumbar pain. It does not radiate out to the sides. It does not radiate down her legs. At times she would get a feeling of weakness in her legs when she is walking related to the back pain but there is no focal radicular symptoms. She will go to the gym, walk the mall etc.. She can go for about 25 minutes before she has to go into a squatted position to stretch her back out and then she can walk back to her car and then will drive home. She thinks it may have something to do with a change in job position where she is now in a seated position in a chair for about 8 or 9 hours a day. Whereas before she was up moving around in office all day. She has an MRI showing annular fissure at L4-5 and a small disc herniation T12-L1. She was sent for evaluation. She does not take any medications for the pain because she does not like to take pills. She does use a heating pad. She has been working with a physical therapist at her gym. PMH: Otherwise healthy Social hx: She does not smoke, drink use any recreational drugs Medications: None Allergies: None Physical exam: She is able to stand on her own, gait is normal, strength and reflexes are all normal. Imaging review: Lumbar MRI shows normal alignment some mild disc degeneration at L4-5 with a very small annular tear centrally. There is also a very small disc herniation at T12-L1 not causing any impingement of the spinal cord or central stenosis. There is no stenosis or nerve impingement seen anywhere in the central canal or in the foramen. Impression: 44-year-old female with centralized low back pain now for about 4-5 months. Unclear what the source is based on the imaging because it is more less looking very mild degenerative changes. She does have an annular tear at L4-5 but the literature on this is clear that there is no way to know for sure if that is involved with her pain at all or just strictly an incidental finding. The small disc herniation at T12-L1 does not localize to the area of her pain. I am not sure exactly where this is coming from, but there are no surgical findings . I am going to send her to for consideration of injections. She can follow up with us on an as-needed basis. Thank you for allowing us to care for your patient. The total time spent with this visit with this patient was 45 minutes reviewing history, physical exam, lumbar imaging review, and implementation of treatment plan or further diagnostic testing Malik Park MD,PhD [facility] Orders: Referrals Pain Management Referral M54.50 - Low back pain, unspecified Coding Level of Care Code New Pt Level 4 (39520) Diagnoses Low back pain M54.50
[2024-12-15 13:25] VITALS: BMI 28.2
--- OUTSIDE RECORDS SUMMARY | 2024-12-15 13:25 | XMS_ITS | Patient Health Record ---
Author Organization Total [facility] Address [address] [place] [address] Care Team Providers Care Assembly Technician Name Role Phone ANETA CAR M.D. Primary Care Provider Ashanti Reyes Unavailable [phone] Allergies No Known Allergies Reason For Referral No Information Social History Tobacco Use: Social History Observation Description Date Details (start date - stop date) Never Smoker NA - NA Tobacco Use/Smoking Question Answer Notes Are you a nonsmoker Alcohol Screen (Audit-C) Question Answer Notes Did you have a drink containing alcohol in the p ast year? No Points 0 Interpretation Negative Sexual History Question Answer Notes Had sex in the past 12 months (vaginal, oral, or anal)? No Problems Problem Type SNOMED Code ICD Code Onset Dates Problem Status W/U Status Risk Notes Problem Excessive and frequent menstruation (097033216) Excessive and frequent menstruation with regular cycle (N92.0) Active confirmed Problem Dysmenorrhea (512669539) Dysmenorrhea, unspecified (N94.6) Active confirmed Problem Endometriosis (384655572) Endometriosis, unspecified (N80.9) Active confirmed Plan Of Treatment Pending Test Test Name Order Date Urinalysis 03/07/2019 Urinalysis 02/08/2018 Urinalysis 06/18/2022 THIN PREP,HPV,DARNELL IF HPV+/CYT-,CT/GC(>2 9YR)(SCRN) 02/08/2018 MM Digital Mammo Screening 02/08/2018 MM Digital Mammo Screening 03/07/2019 MM Digital Mammo Screening 05/09/2020 MM Digital Mammo Screening 06/13/2021 MM Digital Mammo Screening 07/02/2021 MM Digital Mammo Screening 06/18/2022 Next Appt Details Provider Name:Ashanti acosta, 03/30/2025 08:00:00 AM, [address], [address], [place], [address], Insurance Providers Payer Name Payer Address Payer Phone Subscriber Number Group Number Insured Name Patient Relationship to Insured Coverage Start Date Coverage End Date [facility] [address] [place] [address] [id number] ANDRY CÁRDENAS Self - patient is the insured Medical (General) History Medical History History ICD Code Dysmenorrhea, unspecified N94.6 Endometriosis, unspecified N80.9 Surgical History Surgery Date(Month/Year) Bilateral Tubal Ligation - Dr. Blanton 11/08/19 S/P Oophorcystic 2008 Hospitalization History Reason Date(Month/Year) 3 Vaginal Deliveries See Surgical Hx
--- OUTSIDE RECORDS SUMMARY | 2024-12-15 13:25 | XMS_ITS ---
Author Organization Total [employer] [facility] Address [address] [place] [address] Care Team Providers Care Hotel Maid Name Role Phone ANETA CAR M.D. 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 [place] [address] 06/19/2023 Ashanti Reynoso Plan Of Treatment Next Appt Details Provider Name:Ashanti acosta, 03/30/2025 08:00:00 AM, [address], [address], [place], [address], Progress Notes * MADISON CÁRDENASSDOB:[birth year] (44 yo F)Acc No.[id number]:06/19/2023 PROGRESS NOTES Patient:?ANDRY CÁRDENAS Appointment Provider:?Ashanti acosta M.D. :1980???Age:43 Y???Sex:Female D ate:06/19/2023 Address:[address] [place] [address] , [place], [place] Pcp:ANETA CAR M.D. Subjective: * Chief Complaints: * ???1. 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 * Medical History:? Objective: * Vitals:? Assessment: Plan: * Treatment: * Images: Billing Information: * Visit Code:? * Procedure Codes:? * Electronic signature of Corwin Reynoso MD on 12/15/2024 at 01:25 PM EST Sign off status: Pending * Appointment Provider:?Ashanti Reynoso M.D. Date:?06/19/2023 Generated for Fiorella jung/Era/Christine on:?12/15/2024 01:25 PM EST
--- OUTSIDE RECORDS SUMMARY | 2024-12-15 13:25 | XMS_ITS ---
Author Organization Total [employer] [facility] Address [address] [place] [address] Care Team Providers Care Splitting Machine Feeder Name Role Phone ANETA CAR M.D. Primary Care Provider Ashanti Reyes [phone] REASON FOR VISIT Annual (YELLOW FORM DONE) Encounters Encounter Location Date Provider Diagnosis [facility] [employer] [address] [place] [address] 11/14/2024 Ashanti Reynoso Plan Of Treatment Next Appt Details Provider Name:Ashanti acosta, 03/30/2025 08:00:00 AM, [address], [address], [place], [address], Progress Notes * MADISON CÁRDENASCESAROB:[birth year] (44 yo F)Acc No.[id number]:11/14/2024 PROGRESS NOTES Patient:?ANDRY CÁRDENAS Appointment Provider:?Ashanti acosta M.D. :1980???Age:44 Y???Sex:Female D ate:11/14/2024 Address:[address] [place] [address] , [place], [place] Pcp:ANETA CAR M.D. Subjective: * Chief Complaints: * ???1. Annual (YELLOW FORM DO NE). * Medical History:? Objective: * Vitals:? Assessment: Plan: * Treatment: * Images: Billing Information: * Visit Code:? * Procedure Codes:? * Electronic signature of Corwin Reynoso MD on 12/15/2024 at 01:25 PM EST Sign off status: Pending * Appointment Provider:?Ashanti Reynoso M.D. Date:?11/14/2024 Generated for Fiorella jung/Era/Christine on:?12/15/2024 01:25 PM EST
--- OUTSIDE RECORDS SUMMARY | 2024-12-15 13:26 | XMS_ITS ---
Author Organization Total [employer] [facility] Address [address] [place] [address] Care Team Providers Care Mortgage Servicing Specialist Name Role Phone ANETA CAR M.D. 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 :1980???Age:44 Y???Sex:Female D ate:06/23/2024 Address:[address] [place] [address] , [place], [place] Pcp:ANETA CAR M.D. Subjective: * Chief Complaints: * ???1. 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 * Medical History:? Objective: * Vitals:? Assessment: Plan: * Treatment: * Images: Billing Information: * Visit Code:? * Procedure Codes:? * Electronic signature of Corwin Reynoso MD on 12/15/2024 at 01:25 PM EST Sign off status: Pending * Appointment Provider:?Ashanti Reynoso M.D. Date:?06/23/2024 Generated for Fiorella jung/Era/Christine on:?12/15/2024 01:25 PM EST
== END 2024-12-15 13:48 | disposition home or self-care (01) ==
PROVIDERS: PCP Internal Medicine; Referring Provider Internal Medicine; Visit Provider Physician Assistant
DX: M54.50 Low back pain, unspecified (principal)
CPT/HCPCS: 99204

== ENCOUNTER → 2024-12-15 13:17 | Outpatient (BNVA) | payer OTHER, SELFPAY | PROVIDERS: PCP Internal Medicine; Referring Provider Internal Medicine; Visit Provider Physician Assistant ==

== ENCOUNTER 2025-01-02 13:18 | Outpatient (AMB) | payer OTHER, SELFPAY ==
--- NOTE | 2025-01-02 13:20 | A.OFFVIS_ITS ---
Vital Signs 01/02/25 13:24 Height 5 ft 7 in Weight 180 lb BMI 28.2 BP 144/77 H Blood Pressure Location Rt brachial Position Sitting Pulse 76 Pulse Source Pulse Oximeter Pulse Oximetry (%) 98 Oxygen Delivery Method Room Air Intake Visit Reasons: Low back pain Register Of Wills Required: No Accompanied by: Self / Same As Patient Allergies No Known Allergies Allergy (Verified 01/02/25 13:24) HPI HPI Low back pain: Details: History of Present Illness The patient is a 44-year-old female presenting with centralized low back pain that began acutely last July. The pain does not exhibit any radiation into the legs and is primarily centered in the lower back region. An MRI indicated an anterior fissure at L4-5 as well as a small disc herniation at T12-L1, with early mild Modic changes also noted. She has trialed non-pharmacological interventions such as physical therapy, reporting partial benefit. The patient uses meloxicam to address the pain, particularly to aid her sleep, which remains an issue due to nocturnal discomfort. The nature of the pain is described as stabbing and aching. Functionally, her ability to stand or sit for prolonged periods is limited, frequently necessitating postural changes for relief. 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 Pain Description - Onset and Timing: Acute onset last July with persistent duration. - Quality and Character: Stabbing and aching sensation. - Location: Centralized low back pain. - Radiation: No radiation to legs. - Exacerbating Factors: Prolonged sitting, standing, or lying down. - Relieving Factors: Squatting and stretching, physical therapy. - Interference with Activities: Disruption to sleep, limitations on standing and sitting duration, impacts work and exercise performance. Physical Exam Results - MRI results: Anterior fissure at L4-5, small disc herniation at T12-L1, early mild Modic changes at L3 and L4 endplates and L5 inferior endplate. Pain Management - Affect: Pain affects sleep and daily functionality, but patient maintains a full work schedule. - Analgesia: Uses meloxicam 50 mg daily; pain remains significant, but some benefit is noted. - Adverse Effects: No adverse effects from medication reported. - Activities of Daily Living: Pain limits sitting, standing for long periods and disrupts sleep. - Aberrant Drug Related Behaviors: None reported. [facility] Medical History (Updated 01/10/25 @ 11:13 by Ezekiel Rehman MD) Breast cancer screening by mammogram Facial basal cell cancer Overweight (BMI 25.0-29.9) Surgical History H/O bilateral salpingectomy History of tumor History of miscarriage Family History Father Myocardial infarction Mother Cancer, Onset Age: 29 Daughter Major depression Mental health disorder Social History Housing: Apartment Alcohol intake: current Comment: once Q month Patient Tobacco Use Status: Never used Tobacco e-Cigarette/Vaping Use: Never Used Second Hand Smoke Exposure: No service: No Current occupational status: employed Cognitive needs: No Hearing needs: No Vision needs: No Physical Exam Vital Signs: Last Vital Signs Pulse 76 01/02/25 13:24 BP 144/77 H 01/02/25 13:24 Pulse Ox 98 01/02/25 13:24 Oxygen Delivery Method Room Air 01/02/25 13:24 BMI result Body Mass Index 28.2 Assessment & Plan Assessment & Plan (1) Lumbar degenerative disc disease: Code(s): M51.369 - Other intervertebral disc degeneration, lumbar region without mention of lumbar back pain or lower extremity pain Category: Medical Plan Plan The treatment plan includes the continuation of conservative management with physical therapy, including stretching and water exercises, alongside the use of meloxicam for pain relief. I advised the patient to avoid activities that could worsen her disc condition, such as heavy lifting or bending. We discussed the limited benefit and the consideration of cortisone injections, but they are not pursued at this time due to low effectiveness. An inversion table was suggested for home use to potentially alleviate symptoms. The patient understands no surgical intervention is needed currently, but future imaging may be revisited if symptoms persist. Patient was informed and verbally consented to the use of an ambient scribe for clinic note documentation during this visit. Discussion Notes I discussed with the patient that her pain appears to originate from the disc identified on MRI. Our primary management focus is the continuation of physical therapy and regular stretching exercises to support her condition. We talked about the use of an inversion table as a non-pharmacologic intervention. While cortisone injections were an option, I provided a realistic expectation of their limited effectiveness, with a success rate around 30%. The patient understands the focus is on sustaining function with her current regimen and will reconsider intervention if symptoms do not improve. Additionally, a future MRI may be indicated after a year of symptom continuation, enabling reconsideration of treatment plans. Patient Instructions - Continue physical therapy emphasizing daily stretching and exercises. - Avoid lifting heavy objects or bending activities. - Use meloxicam for pain management as needed. - Consider trying an inversion table to help alleviate pain. - Engage in regular swimming and water exercises. - Monitor pain levels and consult with me if pain worsens or persists signif icantly over time. - Schedule a follow-up if symptoms do not improve within a year to reassess and potentially arrange another MRI. Coding Level of Care Code New Pt Level 4 (42981) Diagnoses Lumbar degenerative disc disease M51.369
[2025-01-02 13:24] VITALS: BP 144/77; PULSE 76; O2SAT 98; BMI 28.2
--- OUTSIDE RECORDS SUMMARY | 2025-01-02 15:35 | XMS_ITS | Patient Health Record ---
Author Organization Total [facility] Address [address] [place] [address] Care Team Providers Care Traveling Operator Name Role Phone ANETA CAR M.D. Primary Care Provider Ashanti Reyes Unavailable [phone] Allergies No Known Allergies Reason For Referral [...] Risk Notes Problem Excessive and frequent menstruation (483987789) Excessive and frequent menstruation with regular cycle (N92.0) Active confirmed Problem Dysmenorrhea (536560924) Dysmenorrhea, unspecified (N94.6) Active confirmed Problem Endometriosis (396870625) Endometriosis, unspecified (N80.9) Active confirmed Plan Of [...] Provider Name:Ashanti acosta, 03/30/2025 08:00:00 AM, [address], [address], [place], [address], Insurance Providers Payer Name Payer Address Payer Phone Subscriber Number Group Number Insured Name Patient Relationship to Insured Coverage Start Date Coverage End Date [facility] [address] [place] [address] [phone] [id number] ANDRY CÁRDENAS Self - patient is the insured Medical (General) History Medical History History ICD Code Dysmenorrhea, unspecified N94.6 Endometriosis, unspecified N80.9 Surgical History Surgery Date(Month/Year) Bilateral Tubal Ligation - Dr. Blanton 11/08/19 S/P Oophorcystic 2008 Hospitalization History Reason Date(Month/Year) 3 Vaginal Deliveries See Surgical Hx
--- OUTSIDE RECORDS SUMMARY | 2025-01-02 15:35 | XMS_ITS ---
Author Organization Total [facility] Address [address] [place] [address] Care Team Providers Care Pattern Chart Writer Name Role Phone ANETA CAR M.D. Primary Care Provider Ashanti Reyes [phone] REASON FOR VISIT Annual (YELLOW FORM DONE) Encounters Encounter Location Date Provider Diagnosis [facility] [employer] [address] [place] [address] 11/14/2024 Ashanti Reynoso Plan Of Treatment Next Appt Details Provider Name:Ashanti acosta, 03/30/2025 08:00:00 AM, [address], [address], [place], [address], Progress Notes * MADISON CÁRDENASCESAROB:[birth year] (44 yo F)Acc No.[id number]:11/14/2024 PROGRESS NOTES Patient:?ANDRY CÁRDENAS Appointment Provider:?Ashanti acosta M.D. :1980???Age:44 Y???Sex:Female D ate:11/14/2024 Address:[address] [place] [address] , [place], [place] Pcp:ANETA CAR M.D. Subjective: * Chief Complaints: * ???1. Annual (YELLOW FORM DO NE). * Medical History:? Objective: * Vitals:? Assessment: Plan: * Treatment: * Images: Billing Information: * Visit Code:? * Procedure Codes:? * Electronic signature of Corwin Reynoso MD on 01/02/2025 at 03:35 PM EST Sign off status: Pending * Appointment Provider:?Ashanti Reynoso M.D. Date:?11/14/2024 Generated for Fiorella jung/Era/Christine on:?01/02/2025 03:35 PM EST
--- OUTSIDE RECORDS SUMMARY | 2025-01-02 15:35 | XMS_ITS ---
Author Organization Total [employer] [facility] Address [address] [place] [address] Care Team Providers Care Hardboard Panel Printer Name Role Phone ANETA CAR M.D. 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 [place] [address] 06/23/2024 Ashanti Reynoso Plan Of Treatment Next Appt Details Provider Name:Ashanti acosta, 03/30/2025 08:00:00 AM, [address], [address], [place], [address], Progress Notes * MADISON CÁRDENASSDOB:[birth year] (44 yo F)Acc No.[id number]:06/23/2024 PROGRESS NOTES Patient:?ANDRY CÁRDENAS Appointment Provider:?Ashanti acosta M.D. :1980???Age:44 Y???Sex:Female D ate:06/23/2024 Address:[address] [place] [address] , [place], [place] Pcp:ANETA CAR M.D. Subjective: * Chief Complaints: * ???1. 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 * Medical History:? Objective: * Vitals:? Assessment: Plan: * Treatment: * Images: Billing Information: * Visit Code:? * Procedure Codes:? * Electronic signature of Corwin Reynoso MD on 01/02/2025 at 03:35 PM EST Sign off status: Pending * Appointment Provider:?Ashanti Reynoso M.D. Date:?06/23/2024 Generated for Fiorella jung/Era/Christine on:?01/02/2025 03:35 PM EST
== END 2025-01-02 13:49 | disposition home or self-care (01) ==
PROVIDERS: PCP Internal Medicine; Referring Provider Neurological Surgery; Visit Provider Internal Medicine
DX: M51.369 Other intervertebral disc degeneration, lumbar region without mention of lumbar back pain or lower extremity pain (principal)
CPT/HCPCS: 99204

== ENCOUNTER → 2025-01-02 13:18 | Outpatient (BNVA) | payer OTHER, SELFPAY | PROVIDERS: PCP Internal Medicine; Referring Provider Neurological Surgery; Visit Provider Internal Medicine ==

== ENCOUNTER 2025-03-10 13:36 | Outpatient (REF) | payer OTHER, SELFPAY ==
[2025-03-10 14:31] LABS: MANUAL DIFF FLAG NO
[2025-03-10 15:03] LABS: Basophils Percent Auto 0.3 % (0-2); Eosinophils Absolute Auto 0.1 X10*3/uL (0.0-0.4); Eosinophils Percent Auto 1.1 % (0-4); Hematocrit 40.6 % (37.0-47.0); Hemoglobin 13.4 g/dl (12.0-16.0); Imm Gran Abs Auto 0.02 X10*3/uL (0.00-0.03); Imm Gran Pct Auto 0.3 % (0.0-0.4); Lymphocytes Absolute Auto 2.7 X10*3/uL (1.2-4.9); Lymphocytes Percent Auto 35.9 % (20-40); Mean Corpuscular Hemoglobin 28.6 pg (27.0-33.0); Mean Corpuscular Volume 86.6 fL (80.0-98.0); Mean Platelet Volume 9.9 fL (9.4-12.3); Monocytes Absolute Auto 0.4 X10*3/uL (0.1-1.2); Monocytes Percent Auto 5.5 % (2-11); Neutrophils Absolute Auto 4.3 x10*3/uL (2.0-8.3); Neutrophils Percent Auto 56.9 % (45-73); Platelet Count 263 X10*3/uL (160-400); Red Blood Count 4.69 X10*6/uL (4.20-5.50); Red Cell Distribution Width 12.9 % (11.0-16.0); White Blood Count 7.5 X10*3/uL (4.8-10.8)
[2025-03-10 15:33] LABS: Lipase 19 U/L (8-78)
[2025-03-10 16:10] LABS: Folate 12.1 ng/mL (> or = 4.0); Vitamin B12 176 pg/mL (200-900)
[2025-03-13 21:33] LABS: Transglutaminase Ab IgG <1.0 U/mL; Transglutaminase IgA <1.0 U/mL
[2025-03-15 14:13] LABS: Vitamin D 25-OH, D2 <4 ng/mL; Vitamin D 25-OH, D3 16 ng/mL; Vitamin D 25-OH, Total 16 ng/mL (30-100)
== END 2025-03-10 13:37 | disposition home or self-care (01) ==
LOC: HO.LAB 13:36
PROVIDERS: PCP Internal Medicine; Visit Provider Nurse Practitioner Family
DX: R10.9 Unspecified abdominal pain (principal); R19.7 Diarrhea, unspecified; E55.9 Vitamin D deficiency, unspecified; E53.8 Deficiency of other specified B group vitamins
CPT/HCPCS: 36415; 82306; 82607; 82746; 83690; 85025; 86364

== ENCOUNTER 2025-03-10 13:36 | Outpatient (AMB) | payer OTHER, SELFPAY ==
--- NOTE | 2025-03-10 13:38 | MHC.OFFVIS ---
Vital Signs 03/10/25 13:39 Height 5 ft 7 in Weight 180 lb BMI 28.2 BP 128/60 Blood Pressure Location Rt brachial Position Sitting Pulse 68 Pulse Source Pulse Oximeter Pulse Oximetry (%) 98 Oxygen Delivery Method Room Air Intake Visit Reasons: Pre colonoscopy Intake Note: ESTABLISHED PATIENT for mgmt of GERD + bloating. Pre Op CC; CO constant / persistent epigastric pain and reflux. Pt is hesitant / apprehensive to want to complete testing in order to determine what we need to do for treatment. The most the pt ever completed was an H Pylori BT. Pt has severely restricted their intake due to concern that they will have a negative response to it. Pt is willing to complete colo/egd however. 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 Accompanied by: Self / Same As Patient Allergies No Known Allergies Allergy (Verified 03/10/25 13:39) HPI HPI Pre colonoscopy: Details: LAST VISIT 01/20/2022 WITH Batool MADRIGAL Assessment & Plan (1) GERD (gastroesophageal reflux disease): Comment: December 2020 upper GI series-large reflux-begin pantoprazole 40 mg daily avoid culprits Code(s): K21.9 - Gastro-esophageal reflux disease without esophagitis (2) Bloating: Code(s): R14.0 - Abdominal distension (gaseous) Orders: Orders H Pylori Breath Test Today K21.9 - Gastro-esophageal reflux disease without esophagitis, R14.0 - Abdominal distension (gaseous) Medications: New pantoprazole 40 mg PO DAILY 30 days 30 tabs 11RF Patient Instructions: Pleasant 41-year-old anxious female referred with IBS and acid reflux. Currently not taking any PPI- Upper GI series showing reflux. UPT obtained today, if positive will treat. She will begin pantoprazole 40 mg daily. She will avoid culprits to include caffeine, nicotine, chocolate, peppermint send alcohol. Remain upright 2-3 hours after eating. Discuss food diary-she is willing to keep track. TODAY'S VISIT Patient is here today for requested visit. Patient is due to go for colonoscopy. Previously seen in 2021 by Vangie MADRIGAL. patient still reports that she has been having epigastric pain postprandially. Sometimes she feels like no matter what she eats she will have those symptoms. Reports occasional dyspepsia without dysphagia or odynophagia. Patient also reports abdominal bloating. Patient reports normal bowel movements without any mucus, melena, hematochezia, unintentional weight loss or ribbon like stools. Patient denies any family history of CRC. Denies any issues with anesthesia in the past. No history of sleep apnea. Not on any anticoagulation medication. Patient had upper GI series in 2020 that showed severe reflux. She had a negative H pylori breath test in the past. [facility] Medical History Breast cancer screening by mammogram Facial basal cell cancer Overweight (BMI 25.0-29.9) Surgical History H/O bilateral salpingectomy History of tumor History of miscarriage Family History Father Myocardial infarction Mother Cancer, Onset Age: 29 Daughter Major depression Mental health disorder Social History Housing: Apartment Alcohol intake: current Comment: once Q month Patient Tobacco Use Status: Never used Tobacco e-Cigarette/Vaping Use: Never Used Second Hand Smoke Exposure: No service: No Current occupational status: employed Cognitive needs: No Hearing needs: No Vision needs: No Review of Systems Const Denies weight gain and Denies weight loss ENT Reports no additional complaints, Denies dysphagia and Denies odynophagia Card Reports no additional complaints Resp Reports no additional complaints GI Reports abdominal pain (Epigastric), Reports belching, Denies melena, Reports bloating, Denies change in bowel habits, Denies dysphagia, Denies excessive flatus, Reports dyspepsia, Reports heartburn, Denies diarrhea, Reports loose stools, Denies nausea, Denies odynophagia and Denies vomiting Musc Reports no additional complaints Neuro Reports no additional complaints Psych Reports no additional complaints Endo Reports no additional complaints Physical Exam Vital Signs: Last Vital Signs Pulse 68 03/10/25 13:39 BP 128/60 03/10/25 13:39 Pulse Ox 98 03/10/25 13:39 Oxygen Delivery Method Room Air 03/10/25 13:39 BMI result Body Mass Index 28.2 Const General: healthy appearing, no acute distress and well developed Nutritional Appearance: well nourished Orientation/consciousness: patient oriented x3 Resp Effort & Inspection: normal respiratory effort, able to speak in complete sentences, no tracheal deviation and symmetric chest movement Auscultation: clear to auscultation bilaterally Cardio Rate: regular rate GI Inspection: Yes normal to inspection and No distended Palpation (GI): Soft to palpation, not firm, nontender and No hepatosplenomegaly present Auscultation: normal bowel sounds General: Yes no CVA tenderness Back/Spine/Pelvis Back: no CVA tenderness Skin General skin exam: elasticity normal, turgor normal and dry skin Neuro General: patient oriented x3 Psych Appearance: grossly normal Mental Status: mental status grossly normal Assessment & Plan Assessment & Plan (1) GERD (gastroesophageal reflux disease): Code(s): K21.9 - Gastro-esophageal reflux disease without esophagitis Category: Medical Qualifiers: Esophagitis presence: esophagitis presence not specified Qualified Code(s): K21.9 - Gastro-esophageal reflux disease without esophagitis (2) Bloating: Code(s): R14.0 - Abdominal distension (gaseous) Category: Medical (3) Postprandial epigastric pain: Code(s): R10.13 - Epigastric pain (4) Colon cancer screening: Code(s): Z12.11 - Encounter for screening for malignant neoplasm of colon Category: Medical (5) Vitamin D deficiency: Code(s): E55.9 - Vitamin D deficiency, unspecified Category: Medical Plan Patient will start taking pantoprazole again daily. Avoid dietary triggers and late night snacking. Staying upright for minimum 3 hours after meals discussed with patient. Will check transglutaminase and vitamin-D, B12 and folate as well as lipase. Patient will be sent for upper GI with barium swallow. Patient will be sent for upper endoscopy as well as colonoscopy. What to expect before during and after procedure discussed with patient. Stressed the importance of good bowel prep and clear liquid diet day before procedure. Patient was encouraged to call our office if she will develop any worsening symptoms. She is agreeable to current plan of care and verbalizes understanding of instructions. She was given the opportunity to ask questions and all questions answered. Thank you for allowing me to participate in her care Orders: Orders Transglutaminase Ab IgG 03/10/25 R10.9 - Unspecified abdominal pain Transglutaminase IgA 03/10/25 R10.9 - Unspecified abdominal pain Vitamin D 25-OH (D2 and D3) 03/10/25 E55.9 - Vitamin D deficiency, unspecified Vitamin B12 and Folate 03/10/25 R19.7 - Diarrhea, unspecified [place] upper GI w Ba Swallow 03/10/25 K21.9 - Gastro-esophageal reflux disease without esophagitis Lipase 03/10/25 R10.9 - Unspecified abdominal pain Medications: New pantoprazole take one tablet half an hour before breakfast 40 mg PO DAILY 30 tabs 4RF K21.9 - Gastro-esophageal reflux disease without esophagitis bisacodyl (Dulcolax (bisacodyl)) take 4 tabs at noon the day before your colonoscopy 20 mg (4 x 5 mg) PO ONCE 4 tabs 0RF 1 day Z12.11 - Encounter for screening for malignant neoplasm of colon polyethylene glycol 3350 (Miralax) As directed by gastroenterology department at [facility] 238 grams PO ONCE 238 grams 0RF Z12.11 - Encounter for screening for malignant neoplasm of colon Discontinued cyanocobalamin (vitamin B-12) Discontinued Reason: Duplicate 1,000 mcg PO DAILY 30 caps 3RF E53.8 - Deficiency of other specified B group vitamins Coding Level of Care Code New Pt Level 4 (71584) Diagnoses Gastroesophageal reflux disease, unspecified whether esophagitis present K21.9 Esophagitis presence: esophagitis presence not specified Bloating R14.0 Postprandial epigastric pain R10.13 Colon cancer screening Z12.11 Vitamin D deficiency E55.9 Time Spent (min) 50 Comment 35 minutes spent with patient and additional 15 minutes spent reviewing her records
[2025-03-10 13:39] VITALS: BP 128/60; PULSE 68; O2SAT 98; BMI 28.2
--- OUTSIDE RECORDS SUMMARY | 2025-03-10 13:42 | XMS_ITS | Patient Health Record ---
Author Organization [facility] Address [address] [place] [address] Care Team Providers Care Regional Maintenance Manager Name Role Phone ANETA CAR M.D. Primary Care Provider Ashanti Reyes Unavailable [phone] Allergies No Known Allergies Reason For Referral [...] Risk Notes Problem Excessive and frequent menstruation (828875527) Excessive and frequent menstruation with regular cycle (N92.0) Active confirmed Problem Dysmenorrhea (945306936) Dysmenorrhea, unspecified (N94.6) Active confirmed Problem Endometriosis (287255674) Endometriosis, unspecified (N80.9) Active confirmed Plan Of Treatment Pending Test Test Name Order Date Urinalysis 03/07/2019 Urinalysis 02/08/2018 Urinalysis 06/18/2022 THIN PREP,HPV,DARNELL IF HPV+/CYT-,CT/GC(>2 9YR)(SCRN) 02/08/2018 MM Digital Mammo Screening 06/13/2021 MM Digital Mammo Screening 02/08/2018 MM Digital Mammo Screening 03/07/2019 MM Digital Mammo Screening 05/09/2020 MM Digital Mammo Screening 07/02/2021 MM Digital Mammo Screening 06/18/2022 Next Appt Details Provider Name:Ashanti acosta, 03/30/2025 08:00:00 AM, [address], [address], [place], [address], Insurance Providers Payer Name Payer Address Payer Phone Subscriber Number Group Number Insured Name Patient Relationship to Insured Coverage Start Date Coverage End Date [employer] [address] [place] [address] [phone] [id number] ANDRY CÁRDENAS Self - patient is the insured Medical (General) History Medical History History ICD Code Dysmenorrhea, unspecified N94.6 Endometriosis, unspecified N80.9 Surgical History Surgery Date(Month/Year) Bilateral Tubal Ligation - Dr. Blanton 11/08/19 S/P Oophorcystic 2008 Hospitalization History Reason Date(Month/Year) 3 Vaginal Deliveries See Surgical Hx
--- OUTSIDE RECORDS SUMMARY | 2025-03-10 13:42 | XMS_ITS ---
Author Organization [facility] Address [address] [place] [address] Care Team Providers Care Rent Collector Name Role Phone ANETA CAR M.D. Primary Care Provider Ashanti Reyes [phone] REASON FOR VISIT Annual (YELLOW FORM DONE) Encounters Encounter Location Date Provider Diagnosis [facility] [employer] [address] [place] [address] 11/14/2024 Ashanti Reynoso Plan Of Treatment Next Appt Details Provider Name:Ashanti acosta, 03/30/2025 08:00:00 AM, [address], [address], [place], [address], Progress Notes * MADISON CÁRDENASCESAROB:[birth year] (44 yo F)Acc No.[id number]:11/14/2024 PROGRESS NOTES Patient:?ANDRY CÁRDENAS Appointment Provider:?Ashanti acosta M.D. :1980???Age:44 Y???Sex:Female D ate:11/14/2024 Address:[address] [place] [address] , [place], [place] Pcp:ANETA CAR M.D. Subjective: * Chief Complaints: * ???1. Annual (YELLOW FORM DO NE). * Medical History:? Objective: * Vitals:? Assessment: Plan: * Treatment: * Images: Billing Information: * Visit Code:? * Procedure Codes:? * Electronic signature of Corwin Reynoso MD on 03/10/2025 at 01:42 PM EDT Sign off status: Pending * Appointment Provider:?Ashanti Reynoso M.D. Date:?11/14/2024 Generated for Fiorella jung/Era/Christine on:?03/10/2025 01:42 PM EDT
--- OUTSIDE RECORDS SUMMARY | 2025-03-10 13:43 | XMS_ITS ---
Author Organization Total [facility] Address [address] [place] [address] Care Team Providers Care Service Order Taker Name Role Phone ANETA CAR M.D. Primary Care Provider Ashanti Reyes [phone] REASON FOR VISIT Annual CARDIOLOGY FELLOW Physical Encounters Encounter Location Date Provider Diagnosis [facility] [address] [place] [address] 06/23/2024 Ashanti Reynoso Plan Of Treatment Next Appt Details Provider Name:Ashanti acosta, 03/30/2025 08:00:00 AM, [address], [address], [place], [address], Progress Notes * MADISON CÁRDENASSDOB:[birth year] (44 yo F)Acc No.[id number]:06/23/2024 PROGRESS NOTES Patient:?ANDRY CÁRDENAS Appointment Provider:?Ahsanti acosta M.D. :1980???Age:44 Y???Sex:Female D ate:06/23/2024 Address:[address] [place] [address] , [place], [place] Pcp:ANETA CAR M.D. Subjective: * Chief Complaints: * ???1. Annual CARDIOLOGY FELLOW Physical. * Medical History:? Objective: * Vitals:? Assessment: Plan: * Treatment: * Images: Billing Information: * Visit Code:? * Procedure Codes:? * Electronic signature of Corwin Reynoso MD on 03/10/2025 at 01:42 PM EDT Sign off status: Pending * Appointment Provider:?Ashanti Reynoso M.D. Date:?06/23/2024 Generated for Fiorella jung/Era/Christine on:?03/10/2025 01:42 PM EDT
== END 2025-03-10 14:44 | disposition home or self-care (01) ==
LOC: HO.HGI 13:37
PROVIDERS: PCP Internal Medicine; Visit Provider Nurse Practitioner Family
DX: Z01.818 Encounter for other preprocedural examination (principal); Z12.11 Encounter for screening for malignant neoplasm of colon; K21.9 Gastro-esophageal reflux disease without esophagitis; R14.0 Abdominal distension (gaseous); R10.13 Epigastric pain; E55.9 Vitamin D deficiency, unspecified
CPT/HCPCS: 99212

== ENCOUNTER 2025-04-06 16:07 | Outpatient (AMB) | payer OTHER, SELFPAY ==
[2025-04-06 16:10] VITALS: BP 108/76; PULSE 80; O2SAT 98; BMI 28.0
--- NOTE | 2025-04-06 16:10 | A.OFFPC_ITS ---
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 Required: No Accompanied by: Self / Same As Patient Allergies No Known Allergies Allergy (Verified 04/06/25 16:10) Medication List - Last Reconciled 04/06/25 by Chaka Michaels MD bisacodyl (Dulcolax (bisacodyl)) 20 mg (4 x 5 mg) PO ONCE 1 day cholecalciferol (vitamin D3) 125 mcg PO DAILY cyanocobalamin (vitamin B-12) ER 1,000 mcg PO DAILY magnesium 250 mg PO DAILY polyethylene glycol 3350 (Miralax) 238 grams PO ONCE Tobacco use date assessed: 04/06/25 Dental Screening Dental Screen Date: 04/06/25 Did you have a dental visit in the last 12 months?: Yes Did you have a dental problem in the last 6 months where you did not have access to dental care?: No Was dental information given to patient?: Patient has dentist [facility] Medical History Breast cancer screening by mammogram Facial basal cell cancer Overweight (BMI 25.0-29.9) Surgical History H/O bilateral salpingectomy History of tumor History of miscarriage Family History Father Myocardial infarction Mother Cancer, Onset Age: 29 Daughter Major depression Mental health disorder Social History (Updated 04/06/25 @ 16:38 by Chaka Michaels MD) Housing: Apartment Alcohol intake: current Comment: once Q month 1 cup Patient Tobacco Use Status: Never used Tobacco e-Cigarette/Vaping Use: Never Used Second Hand Smoke Exposure: No service: No Current occupational status: employed Cognitive needs: No Hearing needs: No Vision needs: No Questionnaire PHQ-9 Over the last 2 weeks, how often have you been bothered by any of the following problems? 1. Little interest or pleasure in doing things: not at all 2. Feeling down, depressed, or hopeless: not at all 3. Trouble falling or staying asleep, or sleeping too much: several days 4. Feeling tired or having little energy: several days 5. Poor appetite or overeating: several days 6. Feeling bad about yourself - or that you are a failure or have let yourself or your family down: not at all 7. Trouble concentrating on things, such as reading the newspaper or watching television: not at all 8. Moving or speaking so slowly that other people could have noticed. Or the opposite - being so fidgety or restless that you have been moving around a lot more than usual: not at all 9. Thoughts that you would be better off or of hurting yourself in some way: not at all Total score: 3 Source: Developed by Drs. Jagdeep Lopez, Yancy Morrow, Sumanth Mckeon and colleagues, with an educational farida from [employer]. Thrive Questionnaire Date Thrive assessed: 04/06/25 I am a: Patient What is your living situation today?: I have a steady place to live Within the past 12 months, did the food you bought not last and you didn't have the money to get more?: Never true Within the past 12 months, did you worry whether your food would run out before you got money to buy more?: Never true Do you have trouble paying for medicines?: No Do you have trouble getting transportation to medical appointments?: No Do you have trouble paying your heating and electricity bill?: No Do you have trouble taking care of your child, family member or friend?: No Do you have trouble with day-to-day activities such as bathing, preparing meals, shopping, managing finances, etc.?: No Are you currently unemployed and looking for a job?: No Are you interested in more education?: No Please select the resources that you would like help with: None Currently or been in a relationship where the following occur: No concerns re ported THRIVE Score: 0 AUDIT C Alcohol Use Questionnaire (AUDIT-C) 1. How often do you have a drink containing alcohol?: Monthly or less 2. How many drinks containing alcohol do you have on a typical day when you are drinking?: 1 or 2 3. How often do you have six or more drinks on one occasion?: Never Total Score: 1 DONALDO-7 AMB Questionnaire DONALDO-7 Date DONALDO - 7 assessed: 04/06/25 Feeling nervous, anxious, or on edge: 0 = Not at all Not being able to stop or control worryin = Not at all Worrying too much about different things: 0 = Not at all Trouble relaxin = Not at all Being so restless that it is hard to sit still: 0 = Not at all Becoming easily annoyed or irritable: 0 = Not at all Feeling afraid as if something awful might happen: 0 = Not at all Total DONALDO-7 score (0-4 normal; 5-9 mild; 10-14 moderate; 15-21 severe): 0 Source: Developed by Drs. Jagdeep Lopez, Yancy Morrow, Sumanth Mckeon and colleagues, with an educational farida from [employer]. Review of Systems Const Denies poor appetite and Denies weakness Eyes Denies no additional complaints ENT Reports Normal hearing present, Denies dizziness, Denies nasal congestion, Denies tinnitus and Denies sore throat Card Denies chest pain, Denies syncope, Denies rapid heart rate and Denies dyspnea Resp Denies cough and Denies dyspnea GI Denies change in stool character, Reports constipation, Denies diarrhea, Denies nausea and Denies vomiting Denies urinary frequency, Denies difficulty voiding and Denies dysuria Neuro Reports Normal hearing present, Denies confusion, Denies dizziness, Denies syncope and Denies weakness Psych Denies confusion Physical exam (Primary Care) Vital Signs: Last Vital Signs Pulse 80 04/06/25 16:10 BP 108/76 04/06/25 16:10 Pulse Ox 98 04/06/25 16:10 Oxygen Delivery Method Room Air 04/06/25 16:10 BMI result Body Mass Index 28.0 Tobacco/Smoking Status: Tobacco use Status Tobacco use date assessed 04/06/25 04/06/25 16:15 Patient Tobacco Use Status Never used Tobacco 04/06/25 16:38 e-Cigarette/Vaping Use Never Used 04/06/25 16:38 PHQ-9: PHQ-9 Score PHQ-9: Total score 3 04/06/25 16:31 Thrive Assessment: Date of Thrive Assessment Date Thrive assessed 04/06/25 04/06/25 16:15 Currently or been in a relationship where the following occur: No concerns reported Const General: No confusion Orientation/consciousness: No confusion HENMT Head: Yes normocephalic Ears: external ears normal and TM's normal bilaterally Face and sinus: Yes normal facial exam Mouth: moist mucous membranes Throat: Yes tonsils normal Eyes Conjunctivae: conjunctivae normal Pupils: Equal, round and reactive pupils present and Pupil accommodation reflex normal Direct Ophthalmoscopy: normal light reflex Neck Neck: No lymphadenopathy Thyroid: Thyroid normal Chest Chest palpation & inspection: normal inspection of the chest Resp Effort & Inspection: normal respiratory effort and no audible wheezes Auscultation: clear to auscultation bilaterally, no crackles, no wheezes and lung sounds not diminished Cardio Rate: regular rate Rhythm: regular rhythm Peripheral pulses: radial pulses present and dorsalis pedis present GI Palpation (GI): no masses Auscultation: normal bowel sounds and normoactive bowel sounds Rectal Exam - Female: deferred Skin General skin exam: no rashes or lesions noted Rashes: no rashes Neuro General: No confusion Cranial nerves: Yes Equal, round and reactive pupils present and Yes Normal hearing present Cognition (Neuro): normal cognition Gait exam (Neuro): Normal gait present Motor exam (neuro): 5/5 motor strength present throughout Deep tendon reflexes (DTR's): Right brachioradialis reflex intensity grade: 2+, Left brachioradialis reflex intensity grade: 2+, Right patellar reflex intensity grade: 2+ and Left patellar reflex intensity grade: 2+ Extrem General: No edema Coding Level of Care Code Est Pt Prev Care 40-64y(92237) Diagnoses Annual physical exam Z00.00 Lumbar degenerative disc disease M51.369 Pernicious anemia D51.0 Gastroesophageal reflux disease, unspecified whether esophagitis present K21.9 Esophagitis presence: esophagitis presence not specified Overweight (BMI 25.0-29.9) E66.3 Assessment & Plan Assessment & Plan (1) Annual physical exam: Code(s): Z00.00 - Encounter for general adult medical examination without abnormal findings Category: Medical Plan: Patient is advised to eat healthy, keep well hydrated, keep active and have adequate sleep. (2) Lumbar degenerative disc disease: Code(s): M51.369 - Other intervertebral disc degeneration, lumbar region without mention of lumbar back pain or lower extremity pain Category: Medical Plan: Patient has met with the neurosurgeon as well as pain management. Conservative management recommended (3) Pernicious anemia: Comment: Parietal cell antibody November2021 Code(s): D51.0 - Vitamin B12 deficiency anemia due to intrinsic factor deficiency Category: Medical Plan: Discussed about vitamin B12 shots recommended (4) GERD (gastroesophageal reflux disease): Code(s): K21.9 - Gastro-esophageal reflux disease without esophagitis Category: Medical Qualifiers: Esophagitis presence: esophagitis presence not specified Qualified Code(s): K21.9 - Gastro-esophageal reflux disease without esophagitis Plan: Avoid the foods that causes that usually spicy foods, tomato products, juices, coffee, soda and foods that your sensitive to. After eating do not lie down, allow 3-4 hours before in lie down. And keep the head of bed above 30 degrees to avoid the acid from going up. (5) Overweight (BMI 25.0-29.9): Code(s): E66.3 - Overweight Category: Medical Plan: Diet and exercise Plan History of Present Illness The patient is a 44-year-old female presenting for a physical examination. Past medical history includes being overweight, gastroesophageal reflux disease, pernicious anemia, hypercholesterolemia, and lumbar degenerative disc disease. The patient was last seen in November 2024 and is due for a mammogram and colonoscopy. She was assessed by a neurosurgeon for an annular tear at L4-L5 with no need for surgical intervention, and pain management is in place for the lumbar condition with stretching exercises and physical therapy advised. Recent blood work indicated normal blood counts and electrolytes, with ongoing B12 deficiency?advised to be managed with injections. Vitamin D levels are low, and thyroid function tests are normal. The patient seeks relief for GERD from recent gastroenterological consultation. Management includes dietary supplements despite previous medical recommendations for B12 injections. The patient reports neck spasms occasionally requiring muscle relaxants. She reports nocturnal urinary frequency without excessive fluid consumption and has pertinent family history of cardiovascular disease and cancer. Health Maintenance - Advised annual mammogram?scheduled for next week - Colonoscopy planned, awaiting scheduling - Discussed BMI management including diet and exercise - Education on smoking cessation and alcohol moderation - Follow up blood work in 3 months to re-evaluate B12 levels - Next lipid panel, thyroid function, and fasting glucose test scheduled with follow-up blood work Social History - Rare alcohol consumption: approximately once a month, limited to one cup - No tobacco or recreational drug use - Engages in regular stretching exercises to manage lumbar pain - Lack of adequate fluid intake noted - Reports familial predisposition to cancer and heart disease Review of Systems - Cardiovascular: Denies chest pain - Gastrointestinal: Reports heartburn, denies nausea or vomiting, no bowel movement issues - Musculoskeletal: Reports back pain and neck muscle spasms - Genitourinary: Denies typical dysuria; reports nocturnal urinary frequency - Neurological: Denies syncope; confirms headaches - Respiratory: Denies shortness of breath - General: Denies fever - HENT: Reports blurry vision at times; denies hearing issues - Psychiatric: Denies depression or anxiety Physical Exam General: Cooperative, healthy appearing, comfortable, no acute distress and well developed Orientation: Patient oriented x3 Limitations: No limitations Head: Normal to inspection Ears: Hearing grossly normal bilaterally Nose: Normal external nose present Face and sinus: Normal facial exam Eyes: Appearance normal, both eyes and all related structures Neck: Normal visual inspection and Yes full ROM Respiratory: Normal respiratory effort and able to speak in complete sentences. Clear to auscultation bilaterally Cardiovascular: Regular rate and rhythm. Normal S1 and S2 GI: Normal to inspection. Soft to palpation and nontender Skin: No rashes or lesions noted Neuro: Patient oriented x3 Extremities: Normal to inspection Results - Labs: Normal blood count and electrolytes; B12 level at 176, Vitamin D at 16 (both low) - Prior thyroid and cholesterol screenings were normal Plan We addressed the patient's GERD by reinforcing dietary modification strategies and prescribing management tactics. For the ongoing pernicious anemia, vitamin injections monthly are planned due to absorption impairments, with follow-up assessments in three months. Dietary supplementation with magnesium and vitamin D will continue. Non-surgical management of lumbar degenerative disc disease involves physical therapy recommendations and pain modulation through stretching and heating applications. Health screening coordination includes confirmation of the upcoming mammogram and scheduling the colonoscopy. The patient is advised on optimal health strategies including weight management through diet and exercise. Further blood tests and follow-up health maintenance assessments are planned in three months focusing on cholesterol and vitamin levels. Patient was informed and verbally consented to the use of an ambient scribe for clinic note documentation during this visit. Discussion Notes I discussed with the patient the nature and management of her GERD, emphasizing diet alteration and exercise as beneficial. I explained the need for B12 injections to bypass issues with absorption due to her pernicious anemia, recommending monthly administration initially with subsequent evaluation in three months. Regarding her lumbar condition, a non-surgical approach through pain management and regular physical therapy exercises was endorsed. The patient was made aware of the importance of her upcoming mammogram and pending colonoscopy scheduling. Reassessment of her serum levels in three months will guide ongoing treatment of vitamin B12 and vitamin D deficiencies. I addressed pertinent lifestyle modifications, including the benefits of regular physical activity and nutritional awareness to combat her weight concerns and improve overall health outcomes. Patient Instructions - Schedule and attend mammogram next week - Await colonoscopy scheduling instructions - Continue with dietary modifications for GERD management - Follow recommendations for monthly vitamin B12 injections - Use stretching exercises and heating pads for back pain - Consider vision examination within the coming months - Increase fluid intake and monitor urinary frequency - Maintain healthy lifestyle choices: balanced diet and regular exercise - Follow up with blood exams in three months, keep appointments Orders: Orders Vitamin B12 and Folate 3 Months E53.8 - Deficiency of other specified B group vitamins Hemoglobin A1c 3 Months E78.00 - Pure hypercholesterolemia, unspecified Free T4 (Free Thyroxine) 3 Months E78.00 - Pure hypercholesterolemia, unspecified Thyroid Stimulating Hormone 3 Months E78.00 - Pure hypercholesterolemia, unspecified Vitamin D 25-OH Total 3 Months E53.8 - Deficiency of other specified B group vitamins Complete Blood Count Auto Diff 3 Months E78.00 - Pure hypercholesterolemia, unspecified Comprehensive Met. Panel 3 Months E78.00 - Pure hypercholesterolemia, unspecified Lipid Panel 3 Months E78.00 - Pure hypercholesterolemia, unspecified
--- OUTSIDE RECORDS SUMMARY | 2025-04-06 18:13 | XMS_ITS | Patient Health Record ---
Author Organization Total [facility] Address [address] [place] [address] Care Team Providers Care Lens Polisher Name Role Phone ANETA CAR M.D. Primary Care Provider Ashanti Reyes Unavailable [phone] Allergies No Known Allergies Results Component Value Reference Range Notes Urinalysis Reviewed date:03/30/2025 08:18:20 AM Interpretation: Performing Lab: Notes/Report: PH 8.0 PROTEIN Neg GLUCOSE Neg BLOOD Neg HBsAg Screen-[id number] Reviewed date:04/02/2025 07:22:28 PM Interpretation: Performing Lab:[facility], [address], [address], [place], Phone - [phone], Director - [facility] Notes/Report: Clinical Information:SRC: HBsAg Screen Negative Negative HIV Ab/p24 Ag with Reflex-[id number] [id number] Reviewed date:04/02/2025 07:23:22 PM Interpretation: Performing Lab:[facility], [address], [address], [place], Phone - [phone], Director - [facility] Notes/Report: Clinical Information:SRC: HIV Ab/p24 Ag Screen Non Reactive Non Reactive HIV-1/HIV-2 antibodies and HIV-1 p24 antigen were NOT detected. There is no laboratory evidence of HIV infection. HIV Negative M genitalium BRIDGET, Urine-1800 25 Reviewed date:04/02/2025 07:22:41 PM Interpretation: Performing Lab:[facility], [address], [address], [place], Phone - [phone], Director - [facility] Notes/Report: Clinical Information:SRC: Mycoplasma genitalium BRIDGET Negative Negative 244668-Wmn IGP, CtNg Culture 30 Plus Reviewed date:04/01/2025 09:02:34 AM Interpretation: Performing Lab:[address], [address], [place], Phone - [phone], Director - [facility] Notes/Report: Clinical Information:Vaginal/Cervical, LMP: 03/02 02/24 [id number] LMP / Prev Treat...CLK=[id number] Dates / Results....06/13/21 NIL, Neg HPV No. of containers..01 ThinPrep Vial DIAGNOSIS: NEGATIVE FOR IN TRAEPITHELIAL LESION OR MALIGNANCY. Specimen adequacy: Satisfactory for evaluation. Endocervical and/or squamous metaplastic cells (endocervical component) are present. Clinician provided ICD10: Z01.419 Z72.51 Performed by: Kojo Sarkar , Front End Assistant (ASCP) . . Note: The Pap smear is a screening test designed to aid in the detection of premalignant and malignant conditions of the uterine cervix. It is not a diagnostic procedure and should not be used as the sole means of detecting cervical cancer. Both false-positive and false-negative reports do occur. . Test Methodology: This liquid based ThinPrep(R) pap test was screened with the use of an image guided system. HPV Aptima Negative Negative This nucleic acid amplification test detects fourteen high-risk HPV types (16,18,31,33,35,39,45,51,52,56 ,58,59,66,68) without differentiation. HPV Genotype Reflex Criteria not met, HPV Genotype not performed. Chlamydia, Nuc. Acid Amp Negative Negative Gonococcus, Nuc. Acid Amp Negative Negative RPR Qn+TP [id number] Reviewed date:04/02/2025 07:22:53 PM Interpretation: Performing Lab:[facility] [address], [address], [place], Phone - [phone], Director - [facility] Notes/Report: Clinical Information:SRC: Rapid Plasma Reagin, Quant Non Reactive NonRea<1:1 titer Please Note: This test does not meet current guidelines for screening and diagnosis of syphilis. This test is intended for following treatment response in patients being treated for syphilis infection. To screen for syphilis infection, a reflex cascade that includes both RPR and a treponema-specific assay should be utilized, such as Treponema pallidum (Syphilis) Screening [place] (645504) or Rapid Plasma Reagin (RPR) Test With Reflex to Quantitative RPR and Confirmatory Treponema pallidum Antibodies (563565). Treponema pallidum Antibodies Non Reactive Non Reactive HCV Antibody-131012 Reviewed date:04/02/2025 07:23:12 PM Interpretation: Performing Lab:[facility], [address], [address], [place], Phone - [phone], Director - [facility] Notes/Report: Clinical Information:SRC: Hep C Virus Ab Non Reactive Non Reactive HCV antibody alone does not differentiate between previously resolved infection and active infection. Equivocal and Reactive HCV antibody results should be followed up with an HCV RNA test to support the diagnosis of active HCV infection. PDF Report Reviewed date:04/01/2025 08:59:49 AM Interpretation: Performing Lab:[facility], [address], [address], [place], Phone - [phone], Director - [facility] Notes/Report: Clinical Information:Vaginal/Cervical, LMP: 03/02 02/24 [id number] LMP / Prev Treat...QMU=[id number] Dates / Results....06/13/21 NIL, Neg HPV No. of containers..01 ThinPrep Vial PDF Report Reviewed date:04/02/2025 07:22:14 PM Interpretation: Performing Lab:[facility], [address], [address], [place], Phone - [phone], Director - [facility] Notes/Report: Clinical Information:SRC: Reason For Referral No Information Social History Tobacco Use: Social History Observation Description Date Details (start date - stop date) Never Smoker NA - NA Sexual History Question Answer Notes Had sex in the past 12 months (vaginal, oral, or anal)? No AUDIT-C (Standard) Question Answer Notes Did you have a drink containing alcohol in the p ast year? No Points 0 Interpretation Negative Tobacco Control (Standard) Question Answer Notes Tobacco use: Nonsmoker Problems Problem Type SNOMED Code ICD Code Onset Dates Problem Status W/U Status Risk Notes Problem Excessive and frequent menstruation (109991251) Excessive and frequent menstruation with regular cycle (N92.0) Active confirmed Problem Dysmenorrhea (903992785) Dysmenorrhea, unspecified (N94.6) Active confirmed Problem Endometriosis (513425320) Endometriosis, unspecified (N80.9) Active confirmed Vital Signs Temperature 97.3 degrees Fahrenheit 03/30/2025 Blood pressure diastolic 76 mm Hg 03/30/2025 Height 65 in in 03/30/2025 Blood pressure systolic 126 mm Hg 03/30/2025 Weight 180 lbs 03/30/2025 BMI 29.95 kg/m2 03/30/2025 Encounters Encounter Location Date Provider Diagnosis [address] [place] [address] 03/30/2025 Ashanti Reynoso Encounter for gynecological examination (general) (routine) without abnormal findings Z01.419 ; High risk heterosexual behavior Z72.51 ; Encounter for screening mammogram for malignant neoplasm of breast Z12.31 ; Excessive and frequent menstruation with regular cycle N92.0 and Dysmenorrhea, unspecified N94.6 Assessments Encounter Date Diagnosis (ICD Code) Assessment Notes Treatment Notes Treatment Clinical Notes Section Notes 03/30/2025 Encounter for gynecological examination (general) (routine) without abnormal findings (ICD-10 - Z01.419) PAP TEST WITH HPV TYPING WAS OBTAINED. 03/30/2025 High risk heterosexual behavior (ICD-10 - Z72.51) GC & CHLAMYDIA TESTS WITH PAP SMEAR. DISCUSSED SERUM STD TESTS AND IMPLICATIONS OF POSITIVE RESULTS. SERUM STD TESTS WERE ORDERED. 03/30/2025 Encounter for screening mammogram for malignant neoplasm of breast (ICD-10 - Z12.31) REGULAR MAMMOGRAMS AND SBE'S WERE RECOMMENDED. 03/30/2025 Excessive and frequent menstruation with regular cycle (ICD-10 - N92.0) DISCUSSED MENORRHAGIA AND COMMON CAUSES. RECOMMENDED PROCEEDING WITH HSONO AND POSSIBLE EMB. DISCUSSED THESE PROCEDURES AND PAT AGREED. 03/30/2025 Dysmenorrhea, unspecified (ICD-10 - N94.6) DISCUSSED COMMON CAUSES OF DYSMENORRHEA. PAT MAY DO WELL ON LOW DOSE OCP'S CONTINUOUSLY. WILL AWAIT HSONO RESULTS. IBUPROFEN 800 MG Q 8 HOURS PRN WITH FOOD. Plan Of Treatment Pending Test Test Name Order Date Urinalysis 03/07/2019 Urinalysis 02/08/2018 Urinalysis 06/18/2022 THIN PREP,HPV,DARNELL IF HPV+/CYT-,CT/GC(>2 9YR)(SCRN) 02/08/2018 MM Digital Mammo Screening 02/08/2018 MM Digital Mammo Screening 03/07/2019 MM Digital Mammo Screening 05/09/2020 MM Digital Mammo Screening 06/13/2021 MM Digital Mammo Screening 07/02/2021 MM Digital Mammo Screening 06/18/2022 Next Appt Details Provider Name:Ashanti watkinsdonnell, 06/02/2025 02:00:00 PM, [address], [address], [place], [address], Provider Name:Ashanti watkinsdonnell, 06/02/2025 02:20:00 PM, [address], [address], [place], [address], Provider Name:Ashanti Nguyen dave, 04/04/2026 08:00:00 AM, [address], [address], [place], [address], Insurance Providers Payer Name Payer Address Payer Phone Subscriber Number Group Number Insured Name Patient Relationship to Insured Coverage Start Date Coverage End Date [facility] [address] [place] [address] [id number] ANDRY CÁRDENAS Self - patient is the insured Medical (General) History Medical History History ICD Code Dysmenorrhea, unspecified N94.6 Endometriosis, unspecified N80.9 Excessive and frequent menstruation with regular cycle N92.0 Surgical History Surgery Date(Month/Year) Bilateral Tubal Ligation - Dr. Blanton 11/08/19 S/P Oophorcystic 2008 Hospitalization History Reason Date(Month/Year) See Surgical Hx 3 Vaginal Deliveries
== END 2025-04-06 16:50 | disposition home or self-care (01) ==
LOC: HO.HMCH 16:08
PROVIDERS: PCP Internal Medicine; Visit Provider Internal Medicine
DX: Z00.00 Encounter for general adult medical examination without abnormal findings (principal); M51.369 Other intervertebral disc degeneration, lumbar region without mention of lumbar back pain or lower extremity pain; D51.0 Vitamin B12 deficiency anemia due to intrinsic factor deficiency; K21.9 Gastro-esophageal reflux disease without esophagitis; E66.3 Overweight

== ENCOUNTER → 2025-04-06 16:07 | Outpatient (BNVA) | payer OTHER, SELFPAY | PROVIDERS: PCP Internal Medicine; Visit Provider Internal Medicine ==

== ENCOUNTER 2025-06-22 08:19 | Outpatient (REF) | payer OTHER, SELFPAY ==
--- NOTE | ~2025-06-22 | FL_ITS ---
EXAMINATION: XR UPPER GI SERIES WITH BARIUM SWALLOW. CLINICAL INFORMATION: Gastroesophageal reflux disease without esophagitis. COMPARISON: None available. TECHNIQUE: Routine barium swallow was performed with barium coated saltine crackers, thick barium and effervescent granules and upright view. Patient was placed supine and prone lying and further imaging performed. FINDINGS: Following oral administration of saltine crackers coated with barium paste there is normal oral mastication and propagation bolus from the oral cavity through the pharynx, esophagus into stomach. No retention of food seen in the valleculae or piriform sinuses. On oral administration of thick barium and effervescent granules is normal propagation bolus from the oral cavity through the pharynx, esophagus into stomach without any evidence of obstruction, narrowing or stricture. On placing patient supine and prone lying the course, caliber and peristalsis of the stomach, duodenal bulb and sweep is normal. The mucosal pattern of stomach, duodenal bulb and sweep is normal. Mild gastroesophageal reflux without hiatal hernia is noted. FLUOROSCOPY TIME: 2 minutes and 40 seconds DOSE AREA PRODUCT: 2518 uGy-m2 (microgray-meter squared) FL/FL upper GI w air w Ba Swallow IMPRESSION: Mild gastroesophageal reflux without hiatal hernia. Otherwise unremarkable barium swallow and upper GI exam. Electronically signed by: Raleigh Davis MD 06/22/2025 01:30 PM EDT
== END 2025-06-22 08:20 | disposition home or self-care (01) ==
LOC: HO.XRAY 08:19
PROVIDERS: PCP Internal Medicine; Visit Provider Nurse Practitioner Family
DX: K21.9 Gastro-esophageal reflux disease without esophagitis (principal)
CPT/HCPCS: 74246

== ENCOUNTER → 2025-06-22 08:19 | Outpatient (BNV) | payer OTHER, SELFPAY | PROVIDERS: PCP Internal Medicine; Visit Provider Radiology Diagnostic Radiology | DX: K21.9 Gastro-esophageal reflux disease without esophagitis (principal) | CPT/HCPCS: 74246 ==

== ENCOUNTER 2025-07-07 13:27 | Outpatient (REF) | payer OTHER, SELFPAY ==
--- OUTSIDE RECORDS SUMMARY | 2024-06-23 10:00 | XMS_ITS ---
Author Organization [employer] [facility] Address [address] [place] [address] Care Team Providers Care Treater Name Role Phone ANETA CAR M.D. 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 Encounter Location Date Provider Diagnosis [facility] [employer] [facility] [address] [place] [address] 06/23/2024 Ashanti Reynoso Plan Of Treatment Next Appt Details Provider Name:Ashanti acosta, 07/27/2025 01:00:00 PM, [address], [address], [place], [address], Provider Name:Ashanti acosta, 07/27/2025 01:10:00 PM, [address], [address], [place], [address], Provider Name:Ashanti acosta, 04/04/2026 08:00:00 AM, [address], [address], [place], [address], Progress Notes * JAY CÁRDENASOB:[birth year] (45 yo F)Acc No.[id number]:06/23/2024 PROGRESS NOTES Patient: ANDRY KOCH Appointment Provider: Jalyn Reynoso M.D. :1980 A ge:44 Y S ex:Female Date:06/23/2024 Address:[address] [place] [address] , [facility] Pcp:ANETA CAR M.D. Subjective: * Chief Complaints: * 1 . 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 * Medical History: Objective: * Vitals: Assessment: Plan: * Treatment: * Images: Billing Information: * Visit Code: * Procedure Codes: * Electronic signature of Corwin Reynoso MD on 07/07/2025 at 01:45 PM EDT Sign off status: Pending * Appointment Provider: Jalyn Reynoso M.D. Date: 0 06/23/2024 Generated for Fiorella jung/Era/eTransmitting on: 07/07/2025 01:45 PM EDT
--- OUTSIDE RECORDS SUMMARY | 2024-11-14 04:00 | XMS_ITS ---
Author Organization Total [employer] [facility] Address [address] [facility] [address] [place] [address] Care Team Providers Care Soft Iron Inspector Name Role Phone ANETA CAR M.D. Primary Care Provider Ashanti Reyes [phone] REASON FOR VISIT Annual (YELLOW FORM DONE) Encounters Encounter Location Date Provider Diagnosis [facility] [address] [place] [address] 11/14/2024 Ashanti Reynoso Plan Of Treatment Next Appt Details Provider Name:Ashanti acosta, 07/27/2025 01:00:00 PM, [address], [place], [address], Provider Name:Ashanti acosta, 07/27/2025 01:10:00 PM, [address], [address], [place], [address], Provider Name:Ashanti acosta, 04/04/2026 08:00:00 AM, [address], [place], [address], Progress Notes * JAY CÁRDENASOB:[birth year] (45 yo F)Acc No.[id number]:11/14/2024 PROGRESS NOTES Patient: Blas MOOREHENRIETTAMADISONS Appointment Provider: Jalyn Reynoso M.D. :1980 A ge:44 Y S ex:Female Date:11/14/2024 Address:[address] [place] [address] , [facility] Pcp:ANETA CAR M.D. Subjective: * Chief Complaints: * 1 . Annual (YELLOW FORM DONE). * Medical History: Objective: * Vitals: Assessment: Plan: * Treatment: * Images: Billing Information: * Visit Code: * Procedure Codes: * Electronic signature of Corwin Reynoso MD on 07/07/2025 at 01:45 PM EDT Sign off status: Pending * Appointment Provider: Jalyn Reynoso M.D. Date: 0 11/14/2024 Generated for Fiorella jung/Era/Meghnaransmitting on: 0 07/07/2025 01:45 PM EDT
--- OUTSIDE RECORDS SUMMARY | 2025-06-02 10:00 | XMS_ITS ---
Author Organization Total [facility] [facility] Address [address] [place] [address] Care Team Providers Care Ski Guide Name Role Phone ANETA CAR M.D. Primary Care Provider Ashanti Reyes [phone] REASON FOR VISIT HSONO/EB/ MENORRHAGIA AND DYSMENORRHEA Encounters Encounter Location Date Provider Diagnosis [facility] [employer] [facility] [address] [place] [address] 06/02/2025 Ashanti Reynoso Plan Of Treatment Next Appt Details Provider Name:Ashanti acosta, 07/27/2025 01:00:00 PM, [address] [employer] [employer] [address] [facility] [address], [place], [address], Provider Name:Ashanti acosta, 07/27/2025 01:10:00 PM, [address], [facility] [address], [place], [address], Provider Name:Ashanti acosta, 04/04/2026 08:00:00 AM, [address], [facility] [address], [place], [address], Progress Notes * JAY CÁRDENASOB:[birth year] (45 yo F)Acc No.[id number]:06/02/2025 Patient: Blas CATALINO ANDRY Appointment Provider: Jalyn Reynoso M.D. :1980 A ge:45 Y S ex:Female Date:06/02/2025 Address:[address] [place], [place] [id number] Pcp:ANETA CAR M.D. Subjective: * Chief Complaints: * 1 . HSONO/EB/ MENORRHAGIA AND DYSMENORRHEA. * Medical History: Objective: * Vitals: Assessment: Plan: * Treatment: * Images: Billing Information: * Visit Code: * Procedure Codes: * Electronic signature of Corwin Reynoso MD on 07/07/2025 at 01:44 PM EDT Sign off status: Pending * Appointment Provider: Jalyn Reynoso M.D. Date: 06/02/2025 Generated for Fiorella jung/Era/Mauriitting on: 07/07/2025 01:44 PM EDT
--- OUTSIDE RECORDS SUMMARY | 2025-06-02 10:20 | XMS_ITS ---
Author Organization Total [employer] [facility] Address [address] [place] [address] Care Team Providers Care Project Manager Senior Name Role Phone ANETA CAR M.D. Primary Care Provider Ashanti Reyes [phone] REASON FOR VISIT HSONO/EB/ MENORRHAGIA AND DYSMENORRHEA Encounters Encounter Location Date Provider Diagnosis [facility] [employer] [facility] [address] [place] [address] 06/02/2025 Ashanti Reynoso Plan Of Treatment Next Appt Details Provider Name:Ashanti acosta, 07/27/2025 01:00:00 PM, [address] [facility], [place], [address], Provider Name:Ashanti acosta, 07/27/2025 01:10:00 PM, [address], [facility], [place], [address], Provider Name:Ashanti acosta, 04/04/2026 08:00:00 AM, [address], [facility], [place], [address], Progress Notes * JAY CÁRDENASOB:[birth year] (45 yo F)Acc No.[id number]:06/02/2025 Patient: Blas CATALINO ANDRY Appointment Provider: Jalyn Reynoso M.D. :1980 A ge:45 Y S ex:Female Date:06/02/2025 Address:[address] [place], [place] [phone] Pcp:ANETA CAR M.D. Subjective: * Chief Complaints: [...]
--- NOTE | ~2025-07-07 | MM_ITS ---
EXAMINATION: MM SCREENING DIGITAL BREAST TOMOSYNTHESIS, BILATERAL CLINICAL INFORMATION: Screening. Asymptomatic. COMPARISON: Mammography: Comparison is made with available priors TECHNIQUE: Digital breast mammography with tomosynthesis is performed in both the craniocaudal and mediolateral oblique views along with computer-aided detection (CAD). FINDINGS: There are scattered areas of fibroglandular density (ACR BI-RADS breast composition Category b). There are no significant masses, abnormal calcifications, or other abnormalities. MM/MM tomosynthesis screening BI IMPRESSION: No mammographic evidence of malignancy. ASSESSMENT: BI-RADS BI-RADS 1 - Negative RECOMMENDATION: Routine annual mammography screening. 1 year F/U This examination should not preclude the clinical evaluation of a suspicious palpable abnormality. This patient's information was entered into a reminder system with a target due date for their next mammogram. Electronically signed by: Aleta Hook DO 07/10/2025 05:41 PM EDT
--- OUTSIDE RECORDS SUMMARY | 2025-07-07 13:44 | XMS_ITS | Patient Health Record ---
Author Organization Total [facility] Address [address] [facility] [facility] [address] [place] [address] Care Team Providers Care Search Engine Optimization Analyst Name Role Phone ANETA CAR M.D. Primary Care Provider Ashanti Reyes Unavailable [phone] Allergies No Known Allergies Results Component Value Reference Range Notes PDF Report Reviewed date:04/02/2025 07:22:14 PM Interpretation: Performing Lab:[facility], [address], [address], [place], Phone - [phone], Director - [facility] Notes/Report: Clinical Information:SRC: PDF Report Reviewed date:04/01/2025 08:59:49 AM Interpretation: Performing Lab:[facility]eli, [address], [address], [place], Phone - [phone], Director - [facility] Notes/Report: Clinical Information:Vaginal/Cervical, LMP: 03/02 02/24 [id number] LMP / Prev Treat...CWL=[id number] Dates / Results....06/13/21 NIL, Neg HPV No. of containers..01 ThinPrep Vial HCV Antibody-[id number] Reviewed date:04/02/2025 07:23:12 PM Interpretation: Performing Lab:[facility], [address], [address], [place], Phone - [phone], Director - [facility] Notes/Report: Clinical Information:SRC: Hep C Virus Ab Non Reactive Non Reactive HCV antibody alone does not differentiate between previously resolved infection and active infection. Equivocal and Reactive HCV antibody results should be followed up with an HCV RNA test to support the diagnosis of active HCV infection. RPR Qn+TP [id number] Reviewed date:04/02/2025 07:22:53 PM Interpretation: Performing Lab:[facility], [address], [place], Phone - [phone], Director - [facility] Notes/Report: Clinical Information:SRC: Rapid Plasma Reagin, Quant [...] utilized, such as Treponema pallidum (Syphilis) Screening [place] (458121) or Rapid Plasma Reagin (RPR) Test With Reflex to Quantitative RPR and Confirmatory Treponema pallidum Antibodies (331930). Treponema pallidum Antibodies Non Reactive Non Reactive 855566-Lbe IGP, CtNg Culture 30 Plus Reviewed date:04/01/2025 09:02:34 AM Interpretation: Performing Lab:Fernanda Cohen, [address], [place], Phone - [phone], Director - [facility] Notes/Report: Clinical Information:Vaginal/Cervical, LMP: 03/02 02/24 [id number] LMP / Prev Treat...XYC=[id number] Dates / Results....06/13/21 NIL, Neg HPV No. of containers..01 ThinPrep Vial DIAGNOSIS: NEGATIVE FOR IN TRAEPITHELIAL LESION OR MALIGNANCY. Specimen adequacy: Satisfactory for evaluation. Endocervical and/or squamous metaplastic cells (endocervical component) are present. Clinician provided ICD10: Z01.419 Z72.51 Performed by: Kojo Sarkar , Enterprise Software Engineer (ASCP) . . Note: The Pap smear [...] Lab:[facility], [address], [address], [place], Phone - [phone], Director - [facility] Notes/Report: Clinical Information:SRC: Mycoplasma genitalium BRIDGET Negative Negative HIV Ab/p24 Ag with Reflex-[id number] Reviewed date:04/02/2025 07:23:22 PM Interpretation: Performing Lab:[facility], [address], [address], [place], Phone - [phone], Director - [facility] Notes/Report: Clinical Information:SRC: HIV Ab/p24 Ag Screen Non Reactive Non Reactive HIV-1/HIV-2 antibodies and HIV-1 p24 antigen were NOT detected. There is no laboratory evidence of HIV infection. HIV Negative HBsAg Screen-[id number] Reviewed date:04/02/2025 07:22:28 PM Interpretation: Performing Lab:[facility], [address], [address], [place], Phone - [phone], Director - [facility] Notes/Report: Clinical Information:SRC: HBsAg Screen Negative Negative [...] Risk Notes Problem Excessive and frequent menstruation (194775013) Excessive and frequent menstruation with regular cycle (N92.0) Active confirmed Problem Dysmenorrhea (801088864) Dysmenorrhea, unspecified (N94.6) Active confirmed Problem Endometriosis (165923190) Endometriosis, unspecified (N80.9) Active confirmed Vital Signs Temperature 97.3 degrees Fahrenheit 03/30/2025 Blood pressure diastolic 76 mm Hg 03/30/2025 Height 65 in in 03/30/2025 Blood pressure systolic 126 mm Hg 03/30/2025 Weight 180 lbs 03/30/2025 BMI 29.95 kg/m2 03/30/2025 Encounters Encounter Location Date Provider Diagnosis [address] [place] [address] 03/30/2025 Ashanti Reynoso Encounter for gynecological examination [...] 06/18/2022 Next Appt Details Provider Name:Ashanti watkinsdonnell, 07/27/2025 01:00:00 PM, [address], [address], [place], [address], Provider Name:Ashanti watkinsdonnell, 07/27/2025 01:10:00 PM, [address], [address], [place], [address], Provider Name:Ashanti Nguyen robertojaneydonnell, 04/04/2026 08:00:00 AM, [address], [address], [place], [address], Insurance Providers Payer Name Payer Address Payer Phone Subscriber Number Group Number Insured Name Patient Relationship to Insured Coverage Start Date Coverage End Date [employer] [address] [place] [address] [id number] ANDRY CÁRDENAS Self - patient is the insured Medical (General) History Medical History History ICD Code Dysmenorrhea, unspecified N94.6 Endometriosis, unspecified N80.9 Excessive and frequent menstruation with regular cycle N92.0 Surgical History Surgery Date(Month/Year) Bilateral Tubal Ligation - Dr. Blanton 11/08/19 S/P Oophorcystic 2008 Hospitalization History Reason Date(Month/Year) See Surgical Hx 3 Vaginal Deliveries
== END 2025-07-07 13:28 | disposition home or self-care (01) ==
LOC: HO.MAMMO 13:27
PROVIDERS: PCP Internal Medicine; Visit Provider Internal Medicine
DX: Z12.31 Encounter for screening mammogram for malignant neoplasm of breast (principal)
CPT/HCPCS: 77063; 77067

== ENCOUNTER → 2025-07-07 13:30 | Outpatient (BNV) | payer OTHER, SELFPAY | PROVIDERS: PCP Internal Medicine; Visit Provider Internal Medicine | DX: Z12.31 Encounter for screening mammogram for malignant neoplasm of breast (principal) | CPT/HCPCS: 77063; 77067 ==

== ENCOUNTER 2025-07-14 07:07 | Day surgery (SDC) | payer OTHER, SELFPAY ==
--- OUTSIDE RECORDS SUMMARY | 2025-05-29 09:45 | XMS_ITS | Patient Health Record ---
Author Organization Total [facility] Address [address] [place] [address] Care Team Providers Care Strand And Binder Controller Name Role Phone ANETA CAR M.D. Primary Care Provider Ashanti Reyes Unavailable [phone] Allergies No Known Allergies Results Component Value Reference Range Notes PDF Report Reviewed date:04/02/2025 07:22:14 PM Interpretation: Performing Lab:[facility], [address] [employer], [address], [facility], Phone - [phone], Director - [facility] Notes/Report: Clinical Information:SRC: PDF Report Reviewed date:04/01/2025 08:59:49 AM Interpretation: Performing Lab:[facility], [address] [employer], [address], [facility], Phone - [phone], Director - [facility] Notes/Report: Clinical Information:Vaginal/Cervical, LMP: 03/02 02/24 [id number] LMP / Prev Treat...DXT=[id number] Dates / Results....06/13/21 NIL, Neg HPV No. of containers..01 ThinPrep Vial HCV Antibody-[id number] Reviewed date:04/02/2025 07:23:12 PM Interpretation: Performing Lab:[facility], [address] [employer], [address], [facility], Phone - [phone], Director - [facility] Notes/Report: Clinical Information:SRC: Hep C Virus Ab Non Reactive Non Reactive HCV antibody alone does not differentiate between previously resolved infection and active infection. Equivocal and Reactive HCV antibody results should be followed up with an HCV RNA test to support the diagnosis of active HCV infection. RPR Qn+TP Abs-[id number] Reviewed date:04/02/2025 07:22:53 PM Interpretation: Performing Lab:[facility], [address], [place], Phone - [phone], Director - [facility] Notes/Report: Clinical Information:SRC: Rapid Plasma [...] utilized, such as Treponema pallidum (Syphilis) Screening [place] (637578) or Rapid Plasma Reagin (RPR) Test With Reflex to Quantitative RPR and Confirmatory Treponema pallidum Antibodies (348099). Treponema pallidum Antibodies Non Reactive Non Reactive 571305-Axp IGP, CtNg Culture 30 Plus Reviewed date:04/01/2025 09:02:34 AM Interpretation: Performing Lab:Fernanda [address], [address], [place], Phone - [phone], Director - [facility] Notes/Report: Clinical Information:Vaginal/Cervical, LMP: 03/02 02/24 [id number] LMP / Prev Treat...MDA=[id number] Dates / Results....06/13/21 NIL, Neg HPV No. of containers..01 ThinPrep Vial DIAGNOSIS: NEGATIVE FOR IN TRAEPITHELIAL LESION OR MALIGNANCY. Specimen adequacy: Satisfactory for evaluation. Endocervical and/or squamous metaplastic cells (endocervical component) are present. Clinician provided ICD10: Z01.419 Z72.51 Performed by: Kojo Sarkar , Candy Dipper Hand (ASCP) . . Note: The Pap smear [...] Negative Gonococcus, Nuc. Acid Amp Negative Negative M genitalium BRIDGET, Urine-1800 25 Reviewed date:04/02/2025 07:22:41 PM Interpretation: Performing Lab:[facility], [address], [address], [facility], Phone - [phone], Director - [facility] Notes/Report: Clinical Information:SRC: Mycoplasma genitalium BRIDGET Negative Negative HIV Ab/p24 Ag with Reflex-08 3935 Reviewed date:04/02/2025 07:23:22 PM Interpretation: Performing Lab:[facility], [address], [address], [facility], Phone - [phone], Director - [facility] Notes/Report: Clinical Information:SRC: HIV Ab/p24 Ag Screen Non Reactive Non Reactive HIV-1/HIV-2 antibodies and HIV-1 p24 antigen were NOT detected. There is no laboratory evidence of HIV infection. HIV Negative HBsAg Screen-[id number] Reviewed date:04/02/2025 07:22:28 PM Interpretation: Performing Lab:[facility], [address], [address], [facility], Phone - [phone], Director - [facility] Notes/Report: Clinical Information:SRC: HBsAg Screen Negative Negative Urinalysis Reviewed date:03/30/2025 08:18:20 AM Interpretation: Performing Lab: Notes/Report: PH 8.0 PROTEIN Neg GLUCOSE Neg BLOOD Neg Reason For Referral No Information Social History [...] Risk Notes Problem Excessive and frequent menstruation (060251880) Excessive and frequent menstruation with regular cycle (N92.0) Active confirmed Problem Dysmenorrhea (971881404) Dysmenorrhea, unspecified (N94.6) Active confirmed Problem Endometriosis (503757974) Endometriosis, unspecified (N80.9) Active confirmed Vital Signs Temperature 97.3 degrees Fahrenheit 03/30/2025 Blood pressure diastolic 76 mm Hg 03/30/2025 Height 65 in in 03/30/2025 Blood pressure systolic 126 mm Hg 03/30/2025 Weight 180 lbs 03/30/2025 BMI 29.95 kg/m2 03/30/2025 Encounters Encounter Location Date Provider Diagnosis [address] [place] [address] 03/30/2025 Ashanti Reynoso Encounter for gynecological examination [...] Screening 06/18/2022 Next Appt Details Provider Name:Ashanti Nguyen robertojaneydonnell, 06/02/2025 02:00:00 PM, [address], [address], [place], [address], Provider Name:Ashanti Nguyen robertojaneydonnell, 04/04/2026 08:00:00 AM, [address], [address], [place], [address], Insurance Providers Payer Name Payer Address Payer Phone Subscriber Number Group Number Insured Name Patient Relationship to Insured Coverage Start Date Coverage End Date [facility] [address] [place] [address] [id number] ANDRY CÁRDENAS Self - patient is the insured Medical (General) History Medical History History ICD Code Dysmenorrhea, unspecified N94.6 Endometriosis, unspecified N80.9 Excessive and frequent menstruation with regular cycle N92.0 Surgical History Surgery Date(Month/Year) Bilateral Tubal Ligation - Dr. Blanton 11/08/19 S/P Oophorcystic 2008 Hospitalization History Reason Date(Month/Year) See Surgical Hx 3 Vaginal Deliveries
--- NOTE | 2025-07-12 10:56 | HO.ANESPROP2 ---
Documented by User: Yue Morris NP 07/12/25 10:58 HPI - Anesthesia Eval Consult details Narrative: 45 yr old female for upper endoscopy, colonoscopy H/O b/l salpinectomy PMFSH Active Problems Active Problems: All Active Problems (Updated 03/18/25 @ 21:02 by Shania Daniel, [facility]) Lumbar degenerative disc disease (Acute) Low back pain (Acute) Colon cancer screening (Acute) Hypercholesterolemia (Acute) Vitamin D deficiency (Acute) Annual physical exam (Acute) Bloating (Acute) Pernicious anemia (Acute) Knee pain, bilateral (Acute) GERD (gastroesophageal reflux disease) (Acute) Vitamin B 12 deficiency (Acute) UTI (urinary tract infection) (Acute) Facial basal cell cancer (Acute) Annual physical exam (Acute) Right shoulder pain (Acute) Overweight (BMI 25.0-29.9) (Acute) Past Medical History Medical History GERD (gastroesophageal reflux disease) Anemia Facial basal cell cancer Overweight (BMI 25.0-29.9) Family History Family History Father Myocardial infarction Mother Cancer, Onset Age: 29 Daughter Major depression Mental health disorder Surgical History Surgical History H/O bilateral salpingectomy History of tumor History of miscarriage Social History Social History Housing: Apartment Alcohol intake: current Comment: once Q month 1 cup Patient Tobacco Use Status: Never used Tobacco e-Cigarette/Vaping Use: Never Used Second Hand Smoke Exposure: No Use of substances other than those prescribed or required for medical reasons: No Advance Directives: No Advance Directives Information Provided: Yes service: No Current occupational status: employed Cognitive needs: No Hearing needs: No Vision needs: No Meds Allergies Allergy/AdvReac Type Severity Reaction Status Date / Time No Known Allergies Allergy Verified 04/06/25 16:10 Home Medications ?Medication ?Instructions ?Recorded ?Confirmed ?Last Taken ?Type magnesium 250 mg tablet 250 mg PO DAILY 04/06/25 07/12/25 Unknown History pantoprazole 40 mg tablet,delayed 40 mg PO QAM 07/12/25 07/12/25 Unknown History release Documented by User: Tran Guidry MD 07/14/25 07:47 [facility] Past Medical History Medical History GERD (gastroesophageal reflux disease) Anemia Facial basal cell cancer Overweight (BMI 25.0-29.9) Family History Family History Father Myocardial infarction Mother Cancer, Onset Age: 29 Daughter Major depression Mental health disorder Family history of problems with anesthesia: No Surgical History Surgical History H/O bilateral salpingectomy History of tumor History of miscarriage History of Problems with Anesthesia: No Social History Social History Housing: Apartment Alcohol intake: current Comment: once Q month 1 cup Patient Tobacco Use Status: Never used Tobacco e-Cigarette/Vaping Use: Never Used Second Hand Smoke Exposure: No Use of substances other than those prescribed or required for medical reasons: No Advance Directives: No Advance Directives Information Provided: Yes service: No Current occupational status: employed Cognitive needs: No Hearing needs: No Vision needs: No Meds Allergies Allergy/AdvReac Type Severity Reaction Status Date / Time No Known Allergies Allergy Verified 04/06/25 16:10 Home Medications ?Medication ?Instructions ?Recorded ?Confirmed ?Last Taken ?Type magnesium 250 mg tablet 250 mg PO DAILY 04/06/25 07/12/25 Unknown History pantoprazole 40 mg tablet,delayed 40 mg PO QAM 07/12/25 07/12/25 Unknown History release Exam Airway Mallampati Class: II TM Dist: >3cm Neck ROM: Full Heart: rrr Lungs: cta Assessment and Plan Assessment Anesthesia Assessment: Anesthesia Plan Discussed and Chart Reviewed Final Anesthetic Review Family History of Problems with Anesthesia: No History of Problems with Anesthesia: No NPO: Yes ASA Class: II Final Preanesthetic Review: No Changes in Pt Med Stat, Meds/Allgs Chart Reviewed and Consent Obtained/Reviewed Patient Risk: Low Procedure Risk: Low Anesthetic Plan Anesthetic Plan: MAC: Disposition: Standard PACU
[2025-07-12 14:07] VITALS: BMI 28.2
--- NOTE | 2025-07-14 07:32 | MHC.SHP ---
Pre-Procedural Eval Section A - 24 Hr Update-Section A only Date of Service: 07/14/25 The patient is an INPATIENT: No The patient has been examined within 24 hours of the surgical procedure. The History & Physical has been completed within 30 days and I have reviewed it.: No Section B - Complete if H&P > 30 days Chief Complaint: Screening, GERD, epigastric pain Relevant Family History (Specify if Yes): No Relevant Social History: None Present Medications: see Short Stay Collaborative assessment Medical History: Significant History (Facial basal cell cancer Overweight (BMI 25.0-29.9)) History of Previous Operations: Relevant previous surgery/procedure and date(s) (H/O bilateral salpingectomy History of tumor History of miscarriage) Allergies: Allergies Allergy/AdvReac Type Severity Reaction Status Date / Time No Known Allergies Allergy Verified 04/06/25 16:10 Review of Systems Sugical H&P ROS: Negative: Constitution, Cardiovascular, Respiratory and Gastrointestinal Exam Surgical H&P Exam: Normal: Heart, Normal: Lungs, Normal: Extremities and Normal: Abdomen Plan Diagnosis/Plan: Unchanged I have reviewed the history and physical and performed a pertinent physical examination on my patient. No changes have occurred unless specified. Time Spent With Patient Time: Total time managing care of this patient today ____ minutes.
[2025-07-14 07:34] VITALS: BP 131/83; PULSE 75; RESP 16; TEMP 36.5; O2SAT 98
[2025-07-14] MEDS: Lactated Ringers 1,000 ML 100 ML IVCONT (07:35)
--- NOTE | 2025-07-14 08:54 | P.OPN-COLO_ITS ---
Colonoscopy Operative Note Operative Note Date of Service: 07/14/25 Narrative: FLEXIBLE TRANSORAL UPPER GASTROINTESTINAL ENDOSCOPY WITH BIOPSIES AND COLONOSCOPY TILL CECUM WITH SNARE POLYPECTOMY AND HEMOCLIP PLACEMENT Pre-op diagnosis: Colon cancer screening, GERD, abdominal pain Post-op diagnosis: GERD, Gastritis, Colon Polyps, Diverticulosis, hemorrhoids Endoscopist:? Bibiana López MD Anesthesia:?MAC UPPER ENDOSCOPY Consent: Indications for the procedure and potential complications of bleeding, perforation, reaction to medications and missed diagnosis were discussed with the patient and informed consent was obtained. Instrument: Olympus GIF H 190 mid size upper endoscope Monitoring: Vital signs and clinical assessment, continuous EKG monitoring, Pulse oximetry, Carbon Dioxide monitoring and blood pressure monitoring were done throughout the procedure. Procedure: The patient was placed in the left lateral decubitis position and pre-procedure medications were administered and a bite block was placed. The endoscope was inserted into the mouth and advanced under direct vision to the third part of duodenum. A careful inspection was made as the upper endoscope was withdrawn including a retroflexed examination of the proximal stomach; Findings and interventions are described below. Findings: Larynx: Normal Esophagus: GE junction at 36 cms. Minimal esophagitis with a 1 mm healing erosion at the GE junction. No Olguin's. Stomach: Moderate gastric erythema with a few chronic appearing erosions in the antrum - biopsies were obtained from the antrum. Grade 2 flap valve on retroflexed examination of the cardia. Duodenum: Normal bulb and descending duodenum Biopsies were obtained from descending duodenum to check for celiac sprue Intervention: Biopsies as noted above COLONOSCOPY PROCEDURE NOTE Instrument: Olympus PCF H 190 L variable stiffness pediatric colonoscope Monitoring: Vital signs and clinical assessment, intermittent blood pressure monitoring, continuous EKG monitoring, Pulse oximetry and Carbon Dioxide monitoring were done throughout the procedure. Please see anesthesia flowsheet. Colon withdrawl time was 16 minutes. Procedure: The patient was placed in the left lateral decubitis position and pre-procedure medications were administered. After a digital rectal examination of the ano-rectum, the video colonoscope was inserted into the rectum and advanced through the colon to the cecum. The colonoscope was slowly withdrawn in a retrograde panoramic fashion and the colon mucosa was carefully examined including a retroflexed view of the rectum. Findings and interventions are described below. Procedure Difficulty: without difficulty Findings: Terminal Ileum: Not evaluated Cecum: Normal Ascending Colon: Normal Transverse Colon: A 4-5 mm sessile polyp at the hepatic flexure - with a cold snare A 15 mm sessile polyp at 70 cms - removed with a hot snare Descending Colon: Normal Sigmoid Colon: A 15 mm pedunculated polyp at 35 cms - removed with a hot snare. Polypectomy site was closed with 1 hemoclip. Moderate diverticulosis Rectum: Normal Ano-rectum: Moderate internal hemorrhoids Colon preparation: Excellent, after some irrigation. [place] Bowel Preparation Scale Right colon; 3 Transverse colon: 3 Left colon; 3 (0 = Unprepared colon segment with mucosa not seen due to solid stool that cannot be cleared. 1 = Portion of mucosa of the colon segment seen, but other areas of the colon segment not well seen due to staining, residual stool and/or opaque liquid. 2 = Minor amount of residual staining, small fragments of stool and/or opaque liquid, but mucosa of colon segment seen well. 3 = Entire mucosa of colon segment seen well with no residual staining, small fragments of stool or opaque liquid) Impression and Post Procedure Diagnosis: Endoscopy Findings: ESOPHAGUS: Minimal esophagitis with a 1 mm healing erosion at the GE junction. STOMACH: Moderate gastric erythema with a few chronic appearing erosions in the antrum DUODENUM: Normal - biopsy to check for celiac sprue Colonoscopy Findings: Three small to medium sized polyps were removed Moderate diverticulosis seen in the sigmoid colon Moderate hemorrhoids on retroflexed exam. Plan: I will send a letter with biopsy results. Repeat Colonoscopy in 3-5 years if polyps are adenomatous and 10 year if polyps are hyperplastic. A summary of above findings and relevant handouts were given to the patient. BIOPSIES SHOWED: A. Small bowel, biopsy: Small bowel mucosa with preserved villi and no specific change; no evidence of celiac disease. B. Gastric antrum, biopsy: Gastric antral mucosa with focal minimal chronic inactive inflammation; negative for H. pylori, intestinal metaplasia and dysplasia. C. Gastric erosion, biopsy: Gastric antral mucosa with reactive/regenerative changes and focal minimal chronic inactive inflammation; negative for H. pylori, intestinal metaplasia and dysplasia. D. Colon, transverse, polyp: Tubular adenoma, completely excised; negative for high-grade dysplasia and carcinoma. E. Colon, hepatic flexure, polyp: Consistent with hyperplastic polyp. F. Colon, sigmoid, polyp: Tubular adenoma, completely excised; negative for high-grade dysplasia and carcinoma. Comment: (C): The biopsy may represent tissue adjacent to an ulcer/erosion. Letter sent to the patient with biopsy results. Patient was placed on the colonoscopy recall list for repeat colonoscopy in 3 years.
[2025-07-14 09:30] VITALS: BP 113/62; PULSE 81; RESP 18; TEMP 36.3; O2SAT 99
[2025-07-14 09:45] VITALS: BP 121/72; PULSE 64; RESP 18; TEMP 36.3; O2SAT 99
== END 2025-07-14 10:10 | disposition home or self-care (01) ==
PROVIDERS: PCP Internal Medicine; Visit Provider Internal Medicine Gastroenterology
PROC: (CPT 45385; principal; 2025-07-14 08:30)
DX: Z12.11 Encounter for screening for malignant neoplasm of colon (principal); D12.3 Benign neoplasm of transverse colon; D12.5 Benign neoplasm of sigmoid colon; K57.30 Diverticulosis of large intestine without perforation or abscess without bleeding; K64.8 Other hemorrhoids; K21.9 Gastro-esophageal reflux disease without esophagitis; K25.9 Gastric ulcer, unspecified as acute or chronic, without hemorrhage or perforation; K29.60 Other gastritis without bleeding; K20.90 Esophagitis, unspecified without bleeding; E78.00 Pure hypercholesterolemia, unspecified
CPT/HCPCS: 45385; 43239; 88305; 88342; J2003; J2704

== ENCOUNTER → 2025-07-14 07:07 | Outpatient (BNV) | payer OTHER, SELFPAY | PROVIDERS: PCP Internal Medicine; Visit Provider Internal Medicine Gastroenterology | DX: K29.70 Gastritis, unspecified, without bleeding (principal); K21.9 Gastro-esophageal reflux disease without esophagitis; Z12.11 Encounter for screening for malignant neoplasm of colon; K63.5 Polyp of colon; K57.90 Diverticulosis of intestine, part unspecified, without perforation or abscess without bleeding; K64.8 Other hemorrhoids | CPT/HCPCS: 43239; 45385 ==

== ENCOUNTER 2025-07-28 13:46 | Outpatient (AMB) | payer OTHER, SELFPAY ==
--- OUTSIDE RECORDS SUMMARY | 2025-06-02 10:00 | XMS_ITS ---
Author Organization Total [facility] [facility] Address [address] [place] [address] Care Team Providers Care Sorting Cows Worker Name Role Phone ANETA CAR M.D. Primary Care Provider Ashanti Reyes Unavailable [phone] REASON FOR VISIT HSONO/EB/ MENORRHAGIA AND DYSMENORRHEA Encounters Encounter Location Date Provider Diagnosis [facility] [address] [place] [address] 06/02/2025 Ashanti Reynoso Plan Of Treatment Next Appt Details Provider Name:Ashanti Anna acosta, 09/08/2025 01:40:00 PM, [address], [facility] [address], [place], [address], Provider Name:Ashanti Anna acosta, 09/08/2025 01:40:00 PM, [address], [facility] [address], [place], [address], Provider Name:Ashanti acosta, 04/04/2026 08:00:00 AM, [address], [facility] [address], [place], [address], Progress Notes * JAY CÁRDENASOB:[birth year] (45 yo F)Acc No.[id number]:06/02/2025 Patient: Blas CATALINO ANDRY Appointment Provider: Jalyn Reynoso M.D. :1980 A ge:45 Y S ex:Female Date:06/02/2025 Address:[address] [place], [place] [phone] Pcp:ANETA CAR M.D. Subjective: * Chief Complaints: * 1 . HSONO/EB/ MENORRHAGIA AND DYSMENORRHEA. * Medical History: Objective: * Vitals: Assessment: Plan: * Treatment: * Images: Billing Information: * Visit Code: * Procedure Codes: * Electronic signature of Corwni Reynoso MD on 07/28/2025 at 02:58 PM EDT Sign off status: Pending * Appointment Provider: Jalyn Reynoso M.D. Date: 06/02/2025 Generated for Fiorella jung/Era/Mauriitting on: 07/28/2025 02:58 PM EDT
--- OUTSIDE RECORDS SUMMARY | 2025-06-02 10:20 | XMS_ITS ---
Author Organization Total [facility] Address [address] [place] [address] Care Team Providers Care Rn Clinical Coordinator Name Role Phone ANETA CAR M.D. Primary Care Provider Ashanti Reyes Unavailable [phone] REASON FOR VISIT HSONO/EB/ MENORRHAGIA AND DYSMENORRHEA Encounters Encounter Location Date Provider Diagnosis [facility] [employer] [facility] [address] [place] [address] 06/02/2025 Ashanti Reynoso Plan Of Treatment Next Appt Details Provider Name:Ashanti Anna acosta, 09/08/2025 01:40:00 PM, [address], [facility] [address], [place], [address], Provider Name:Ashanti Anna acosta, 09/08/2025 01:40:00 PM, [address], [facility] [address], [place], [address], Provider Name:Ashanti acosta, 04/04/2026 08:00:00 AM, [address], [facility] [address], [place], [address], Progress Notes * JAY CÁRDENASOB:[birth year] (45 yo F)Acc No.[id number]:06/02/2025 Patient: Blas CATALINO ANDRY Appointment Provider: Jalyn Reynoso M.D. :1980 A ge:45 Y S ex:Female Date:06/02/2025 Address:[address] [place], [place] [phone] Pcp:ANETA CAR M.D. Subjective: * Chief Complaints: * 1 . HSONO/EB/ MENORRHAGIA AND DYSMENORRHEA. * Medical History: Objective: * Vitals: Assessment: Plan: * Treatment: * Images: Billing Information: * Visit Code: * Procedure Codes: * Electronic signature of Corwin Reynoso MD on 07/28/2025 at 02:58 PM EDT Sign off status: Pending * Appointment Provider: Jalyn Reynoso M.D. Date: 06/02/2025 Generated for Fiorella jung/Era/Mauriitting on: 07/28/2025 02:58 PM EDT
--- OUTSIDE RECORDS SUMMARY | 2025-07-27 09:00 | XMS_ITS ---
Author Organization Total [employer] [facility] Address [address] [employer] [facility] [address] [place] [address] Care Team Providers Care Student Accounts Manager Name Role Phone ANETA CAR M.D. Primary Care Provider Ashanti Reyes [phone] REASON FOR VISIT HSONO/EB/ MENORRHAGIA AND DYSMENORRHEA (ORANGE FORM DONE) Encounters Encounter Location Date Provider Diagnosis [facility] [employer] [facility] [address] [place] [address] 07/27/2025 Ashanti Reynoso Plan Of Treatment Next Appt Details Provider Name:Ashanti Anna acosta, 09/08/2025 01:40:00 PM, [employer] [address], [place], [address], Provider Name:Ashanti Anna acosta, 09/08/2025 01:40:00 PM, [employer] [address], [place], [address], Provider Name:Ashanti Anna Mitchelljesi dave, 04/04/2026 08:00:00 AM, [employer], [facility] [address], [place], [address], Progress Notes * JAY CÁRDENASOB:[birth year] (45 yo F)Acc No.[id number]:07/27/2025 Patient: Blas MOOREHENRIETTAMADISONS Appointment Provider: Jalyn Reynoso M.D. :1980 A ge:45 Y S ex:Female Date:07/27/2025 Address:[address] [place] [address] , [facility] Pcp:ANETA CAR M.D. Subjective: * Chief Complaints: [...] 0 07/27/2025 Generated for Fiorella jung/Era/Mauriitting on: 07/28/2025 02:58 PM EDT
--- OUTSIDE RECORDS SUMMARY | 2025-07-27 09:10 | XMS_ITS ---
Author Organization Total [employer] [facility] Address [address] [place] [address] Care Team Providers Care Lease Broker Name Role Phone ANETA CAR M.D. Primary Care Provider Ashanti Reyes [phone] REASON FOR VISIT HSONO/EB/ MENORRHAGIA AND DYSMENORRHEA Encounters Encounter Location Date Provider Diagnosis [facility] [employer] [facility] [address] [place] [address] 07/27/2025 Ashanti Reynoso Plan Of Treatment Next Appt Details Provider Name:Ashanti acosta, 09/08/2025 01:40:00 PM, [address] [employer] [facility] [place], [address], Provider Name:Ashanti Anna acosta, 09/08/2025 01:40:00 PM, [address] [employer], [facility] [address], [place], [address], Provider Name:Ashanti acosta, 04/04/2026 08:00:00 AM, [address] [employer], [facility] [address], [place], [address], Progress Notes * JAY CÁRDENASOB:[birth year] (45 yo F)Acc No.[id number]:07/27/2025 Patient: Blas CATALINO ANDRY Appointment Provider: Jalyn Reynoso M.D. :1980 A ge:45 Y S ex:Female Date:07/27/2025 Address:[address] [place], [place] [address] Pcp:ANETA CAR M.D. Subjective: * Chief Complaints: [...]
--- NOTE | 2025-07-28 13:49 | MHC.OFFVIS ---
Vital Signs 07/28/25 13:50 Height 5 ft 7 in Weight 187 lb BMI 29.3 BP 124/54 L Blood Pressure Location Rt brachial Position Sitting Pulse 72 Pulse Source Pulse Oximeter Pulse Oximetry (%) 97 Oxygen Delivery Method Room Air Intake Visit Reasons: S/P double; Dr. López Intake Note: Est pt for mgmt of GERD + bloating. S/P double. 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 López: Details: LAST VISIT: GERD (gastroesophageal reflux disease) Bloating Postprandial epigastric pain Colon cancer screening Vitamin D deficiency Plan Patient will start taking pantoprazole again daily. Avoid dietary triggers and late night snacking. Staying upright for minimum 3 hours after meals discussed with patient. Will check transglutaminase and vitamin-D, B12 and folate as well as lipase. Patient will be sent for upper GI with barium swallow. Patient will be sent for upper endoscopy as well as colonoscopy. What to expect before during and after procedure discussed with patient. Stressed the importance of good bowel prep and clear liquid diet day before procedure. Patient was encouraged to call our office if she will develop any worsening symptoms. She is agreeable to current plan of care and verbalizes understanding of instructions. She was given the opportunity to ask questions and all questions answered. ? Thank you for allowing me to participate in her care Orders Transglutaminase Ab IgG 03/10/25 R10.9 Transglutaminase IgA 03/10/25 R10.9 Vitamin D 25-OH (D2 and D3) 03/10/25 E55.9 Vitamin B12 and Folate 03/10/25 R19.7 FL upper GI w Ba Swallow 03/10/25 K21.9 Lipase 03/10/25 R10.9 New pantoprazole take one tablet half an hour before breakfast 40 mg PO DAILY 30 tabs 4RF K21.9 bisacodyl (Dulcolax (bisacodyl)) take 4 tabs at noon the day before your colonoscopy 20 mg (4 x 5 mg) PO ONCE 4 tabs 0RF 1 day Z12.11 polyethylene glycol 3350 (Miralax) As directed by gastroenterology department at [facility] 238 grams PO ONCE 238 grams 0RF Z12.11 Discontinued cyanocobalamin (vitamin B-12) Discontinued Reason: Duplicate 1,000 mcg PO DAILY 30 caps 3RF E53.8 UPPER ENDOSCOPY AND COLONOSCOPY Findings: Larynx: Normal Esophagus: GE junction at 36 cms. Minimal esophagitis with a 1 mm healing erosion at the GE junction. No Olguin's. Stomach: Moderate gastric erythema with a few chronic appearing erosions in the antrum - biopsies were obtained from the antrum. Grade 2 flap valve on retroflexed examination of the cardia. Duodenum: Normal bulb and descending duodenum Biopsies were obtained from descending duodenum to check for celiac sprue Intervention: Biopsies as noted above COLONOSCOPY PROCEDURE NOTE Instrument: Olympus PCF H 190 L variable stiffness pediatric colonoscope Monitoring: Vital signs and clinical assessment, intermittent blood pressure monitoring, continuous EKG monitoring, Pulse oximetry and Carbon Dioxide monitoring were done throughout the procedure. Please see anesthesia flowsheet. Colon withdrawl time was 16 minutes. Procedure: The patient was placed in the left lateral decubitis position and pre-procedure medications were administered. After a digital rectal examination of the ano-rectum, the video colonoscope was inserted into the rectum and advanced through the colon to the cecum. The colonoscope was slowly withdrawn in a retrograde panoramic fashion and the colon mucosa was carefully examined including a retroflexed view of the rectum. Findings and interventions are described below. Procedure Difficulty: without difficulty Findings: Terminal Ileum: Not evaluated Cecum: Normal Ascending Colon: Normal Transverse Colon: A 4-5 mm sessile polyp at the hepatic flexure - with a cold snare A 15 mm sessile polyp at 70 cms - removed with a hot snare Descending Colon: Normal Sigmoid Colon: A 15 mm pedunculated polyp at 35 cms - removed with a hot snare. Polypectomy site was closed with 1 hemoclip. Moderate diverticulosis Rectum: Normal Ano-rectum: Moderate internal hemorrhoids Colon preparation: Excellent, after some irrigation. [place] Bowel Preparation Scale Right colon; 3 Transverse colon: 3 Left colon; 3 (0 = Unprepared colon segment with mucosa not seen due to solid stool that cannot be cleared. 1 = Portion of mucosa of the colon segment seen, but other areas of the colon segment not well seen due to staining, residual stool and/or opaque liquid. 2 = Minor amount of residual staining, small fragments of stool and/or opaque liquid, but mucosa of colon segment seen well. 3 = Entire mucosa of colon segment seen well with no residual staining, small fragments of stool or opaque liquid) Impression and Post Procedure Diagnosis: Endoscopy Findings: ESOPHAGUS: Minimal esophagitis with a 1 mm healing erosion at the GE junction. STOMACH: Moderate gastric erythema with a few chronic appearing erosions in the antrum DUODENUM: Normal - biopsy to check for celiac sprue Colonoscopy Findings: Three small to medium sized polyps were removed Moderate diverticulosis seen in the sigmoid colon Moderate hemorrhoids on retroflexed exam. Plan: I will send a letter with biopsy results. Repeat Colonoscopy in 3-5 years if polyps are adenomatous and 10 year if polyps are hyperplastic. A summary of above findings and relevant handouts were given to the patient. BIOPSIES SHOWED: A. Small bowel, biopsy: Small bowel mucosa with preserved villi and no specific change; no evidence of celiac disease. B. Gastric antrum, biopsy: Gastric antral mucosa with focal minimal chronic inactive inflammation; negative for H. pylori, intestinal metaplasia and dysplasia. C. Gastric erosion, biopsy: Gastric antral mucosa with reactive/regenerative changes and focal minimal chronic inactive inflammation; negative for H. pylori, intestinal metaplasia and dysplasia. D. Colon, transverse, polyp: Tubular adenoma, completely excised; negative for high-grade dysplasia and carcinoma. E. Colon, hepatic flexure, polyp: Consistent with hyperplastic polyp. F. Colon, sigmoid, polyp: Tubular adenoma, completely excised; negative for high-grade dysplasia and carcinoma. Comment: (C): The biopsy may represent tissue adjacent to an ulcer/erosion. TODAY'S VISIT Patient is here today for follow-up discussed upper endoscopy and colonoscopy results. Patient denies any ill effects from the prep, anesthesia or procedure itself. As patient denies dysphagia or odynophagia. Reports occasional dyspepsia. Patient reports acid reflux with almost any food. Sometimes patient reports acid reflux when she is bending over feeling epigastric burning and burning going all the way up into her throat. Patient currently is taking pantoprazole. Patient reports she has been on it for some time and feels like it is not helpful. Patient reports dietary changes, however she still drinks 1 cup of coffee daily. Patient is avoiding dietary triggers in late night snacking. Patient reports that she is moving her bowels better now. Drinking more fluids. Denies melena, hematochezia, unintentional weight loss or ribbon like stools. Upper endoscopy and colonoscopy results discussed with patient chronic inactive gastritis, gastric erosion with antral mucosa with reactive changes. No H pylori found. Patient is not on any H2 anisa at this point. Colonoscopy showed tubular adenoma without high-grade dysplasia or carcinoma. Recommended to return in 3 years for colorectal screening. [facility] Medical History (Updated 07/28/25 @ 14:19 by Shania Daniel [facility]) Tubular adenoma of colon GERD (gastroesophageal reflux disease) Anemia Facial basal cell cancer Overweight (BMI 25.0-29.9) Surgical History H/O bilateral salpingectomy History of tumor History of miscarriage Family History Father Myocardial infarction Mother Cancer, Onset Age: 29 Daughter Major depression Mental health disorder Social History Housing: Apartment Alcohol intake: current Comment: once Q month 1 cup Patient Tobacco Use Status: Never used Tobacco e-Cigarette/Vaping Use: Never Used Second Hand Smoke Exposure: No service: No Current occupational status: employed Cognitive needs: No Hearing needs: No Vision needs: No Review of Systems Const Denies weight gain and Denies weight loss ENT Reports no additional complaints, Denies dysphagia and Denies odynophagia Card Reports no additional complaints Resp Reports no additional complaints GI Reports abdominal pain (Epigastric), Reports belching, Denies melena, Reports bloating, Denies change in bowel habits, Denies dysphagia, Denies excessive flatus, Reports dyspepsia, Reports heartburn, Denies diarrhea, Reports loose stools, Denies nausea, Denies odynophagia and Denies vomiting Reports no additional complaints Musc Reports no additional complaints Neuro Reports no additional complaints Psych Reports no additional complaints Endo Reports no additional complaints Physical Exam Vital Signs: BMI result Body Mass Index 29.3 Const General: healthy appearing, no acute distress and well developed Nutritional Appearance: well nourished Orientation/consciousness: patient oriented x3 Resp Effort & Inspection: normal respiratory effort, able to speak in complete sentences, no tracheal deviation and symmetric chest movement Auscultation: clear to auscultation bilaterally Cardio Rate: regular rate GI Inspection: Yes normal to inspection and No distended Palpation (GI): Soft to palpation, not firm, nontender and No hepatosplenomegaly present Auscultation: normal bowel sounds General: Yes no CVA tenderness Back/Spine/Pelvis Back: no CVA tenderness Skin General skin exam: elasticity normal, turgor normal and dry skin Neuro General: patient oriented x3 Psych Appearance: grossly normal Mental Status: mental status grossly normal Results Reviewed Results Reviewed: UPPER GI WITH BARIUM SWALLOW IMPRESSION: Mild gastroesophageal reflux without hiatal hernia. Otherwise unremarkable barium swallow and upper GI exam. Assessment & Plan Assessment & Plan (1) GERD (gastroesophageal reflux disease): Code(s): K21.9 - Gastro-esophageal reflux disease without esophagitis Category: Medical Qualifiers: Esophagitis presence: esophagitis presence not specified Qualified Code(s): K21.9 - Gastro-esophageal reflux disease without esophagitis (2) Bloating: Code(s): R14.0 - Abdominal distension (gaseous) Category: Medical (3) Tubular adenoma of colon: Code(s): D12.6 - Benign neoplasm of colon, unspecified Category: Medical (4) Postprandial epigastric pain: Code(s): R10.13 - Epigastric pain Plan Patient will stop taking pantoprazole and will start taking rabeprazole. Avoid dietary triggers in late night snacking. Staying upright for minimum 3 hours after meals discussed with patient. Patient will start taking famotidine at bedtime. Increase fluid intake and activity to promote better bowel motility. Patient was encouraged to continue pre and probiotic, may take additional fiber. Follow-up in 4 months. Patient will call our office if she will continue to have symptoms. She is agreeable to this plan and verbalizes understanding of instructions. She was given the opportunity to ask questions and all questions answered. Thank you for allowing me to participate in her care Medications: New rabeprazole 20 mg PO DAILY 30 tabs 5RF famotidine (Pepcid) 20 mg PO BEDTIME 30 tabs 3RF K21.9 - Gastro-esophageal reflux disease without esophagitis Coding Level of Care Code Est Pt Level 4 (21343) Complex EM visit Add On G2211 Diagnoses Gastroesophageal reflux disease, unspecified whether esophagitis present K21.9 Esophagitis presence: esophagitis presence not specified Bloating R14.0 Tubular adenoma of colon D12.6 Postprandial epigastric pain R10.13 Time Spent (min) 35 Comment 25 minutes spent with patient and additional 10 minutes spent reviewing her records
[2025-07-28 13:50] VITALS: BP 124/54; PULSE 72; O2SAT 97; BMI 29.3
--- OUTSIDE RECORDS SUMMARY | 2025-07-28 14:58 | XMS_ITS | Patient Health Record ---
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 Primary Care Provider Ashanti Reyes Unavailable [phone] Allergies No Known Allergies Results Component Value Reference Range Notes PDF Report Reviewed date:04/02/2025 07:22:14 PM Interpretation: Performing Lab:[facility], [address], [address], [place], Phone - [phone], Director - [facility] Notes/Report: Clinical Information:SRC: PDF Report Reviewed date:04/01/2025 08:59:49 AM Interpretation: Performing Lab:[facility], [address], [address], [place], Phone - [phone], Director - [facility] Notes/Report: Clinical Information:Vaginal/Cervical, LMP: 03/02 02/24 [id number] LMP / Prev Treat...[id number]=[id number] Dates / Results....06/13/21 NIL, Neg HPV No. of containers..01 ThinPrep Vial HCV Antibody-[id number] Reviewed date:04/02/2025 07:23:12 PM Interpretation: Performing Lab:[facility], [address], [address], [place], Phone - [phone], Director - [facility] Notes/Report: Clinical Information:SRC: Hep C Virus Ab Non Reactive Non Reactive HCV antibody alone does not differentiate between previously resolved infection and active infection. Equivocal and Reactive HCV antibody results should be followed up with an HCV RNA test to support the diagnosis of active HCV infection. RPR Qn+TP [id number] Reviewed date:04/02/2025 07:22:53 PM Interpretation: Performing Lab:[facility], [address], [place], Phone - [phone], Director - [facility] Notes/Report: Clinical Information:SRC: Rapid Plasma Reagin, [...] utilized, such as Treponema pallidum (Syphilis) Screening [place] (335274) or Rapid Plasma Reagin (RPR) Test With Reflex to Quantitative RPR and Confirmatory Treponema pallidum Antibodies (555821). Treponema pallidum Antibodies Non Reactive Non Reactive [id number] IGP, CtNg Culture 30 Plus Reviewed date:04/01/2025 09:02:34 AM Interpretation: Performing Lab:Fernanda [address], [address], [place], Phone - [phone], Director - [facility] Notes/Report: Clinical Information:Vaginal/Cervical, LMP: 03/02 02/24 [id number] LMP / Prev Treat...BSN=[id number] Dates / Results....06/13/21 NIL, Neg HPV No. of containers..01 ThinPrep Vial DIAGNOSIS: NEGATIVE FOR IN TRAEPITHELIAL LESION OR MALIGNANCY. Specimen adequacy: Satisfactory for evaluation. Endocervical and/or squamous metaplastic cells (endocervical component) are present. Clinician provided ICD10: Z01.419 Z72.51 Performed by: Kojo Sarkar , Statistical Financial Analyst (ASCP) . . Note: The Pap smear [...] Lab:[facility], [address], [address], [place], Phone - [phone], Director - [facility] Notes/Report: Clinical Information:SRC: Mycoplasma genitalium BRIDGET Negative Negative HIV Ab/p24 Ag with Reflex-[id number] Reviewed date:04/02/2025 07:23:22 PM Interpretation: Performing Lab:[facility], [address], [address], [place], Phone - [phone], Director - [facility] Notes/Report: Clinical Information:SRC: HIV Ab/p24 Ag Screen Non Reactive Non Reactive HIV-1/HIV-2 antibodies and HIV-1 p24 antigen were NOT detected. There is no laboratory evidence of HIV infection. HIV Negative HBsAg Screen-[id number] Reviewed date:04/02/2025 07:22:28 PM Interpretation: Performing Lab:[facility], [address], [address], [place], Phone - [phone], Director - [facility] Notes/Report: Clinical Information:SRC: HBsAg Screen Negative [...] Risk Notes Problem Excessive and frequent menstruation (072687052) Excessive and frequent menstruation with regular cycle (N92.0) Active confirmed Problem Dysmenorrhea (197579199) Dysmenorrhea, unspecified (N94.6) Active confirmed Problem Endometriosis (523882189) Endometriosis, unspecified (N80.9) Active confirmed Vital Signs Temperature 97.3 degrees Fahrenheit 03/30/2025 Blood pressure diastolic 76 mm Hg 03/30/2025 Height 65 in in 03/30/2025 Blood pressure systolic 126 mm Hg 03/30/2025 Weight 180 lbs 03/30/2025 BMI 29.95 kg/m2 03/30/2025 Encounters Encounter Location Date Provider Diagnosis [address] [place] [address] 03/30/2025 Ashanti Reynoso Encounter for gynecological examination [...] 06/18/2022 Next Appt Details Provider Name:Ashanti watkinsdonnell, 09/08/2025 01:40:00 PM, [address], [address], [place], [address], Provider Name:Ashanti watkinsdonnell, 09/08/2025 01:40:00 PM, [address], [address], [place], [address], Provider Name:Ashanti Nguyen robertojaneydonnell, 04/04/2026 08:00:00 AM, [address], [address], [place], [address], Insurance Providers Payer Name Payer Address Payer Phone Subscriber Number Group Number Insured Name Patient Relationship to Insured Coverage Start Date Coverage End Date [facility] [address] [place] [address] [id number] ANDRY CÁRDENAS Self - patient is the insured Medical (General) History Medical History History ICD Code Dysmenorrhea, unspecified N94.6 Endometriosis, unspecified N80.9 Excessive and frequent menstruation with regular cycle N92.0 Surgical History Surgery Date(Month/Year) Bilateral Tubal Ligation - Dr. Blanton 11/08/19 S/P Oophorcystic 2008 Hospitalization History Reason Date(Month/Year) See Surgical Hx 3 Vaginal Deliveries
== END 2025-07-28 14:07 | disposition home or self-care (01) ==
LOC: HO.HGI 13:47
PROVIDERS: PCP Internal Medicine; Visit Provider Nurse Practitioner Family
DX: K21.9 Gastro-esophageal reflux disease without esophagitis (principal); R14.0 Abdominal distension (gaseous); D12.6 Benign neoplasm of colon, unspecified; R10.13 Epigastric pain
CPT/HCPCS: 99214; G2211

== ENCOUNTER 2025-08-01 15:30 | Outpatient (AMB) | payer OTHER, SELFPAY ==
--- OUTSIDE RECORDS SUMMARY | 2025-06-02 10:00 | XMS_ITS ---
Author Organization Total [employer] [facility] Address [address] [place] [address] Care Team Providers Care Oracle Developer Name Role Phone ANETA CAR M.D. Primary Care Provider Ashanti Reyes Unavailable [phone] REASON FOR VISIT HSONO/EB/ MENORRHAGIA AND DYSMENORRHEA Encounters Encounter Location Date Provider Diagnosis [facility] [employer] [facility] [address] [place] [address] 06/02/2025 Ashanti Reynoso Plan Of Treatment Next Appt Details Provider Name:Ashanti Anna acosta, 09/08/2025 01:40:00 PM, [address], [facility] [address], [place], [address], Provider Name:Ashanti acosta, 09/08/2025 01:40:00 PM, [address], [facility] [address], [place], [address], Provider Name:Ashanti acosta, 04/04/2026 08:00:00 AM, [address], [facility] [address], [place], [address], Progress Notes * JAY CÁRDENASOB:[birth year] (45 yo F)Acc No.[id number]:06/02/2025 Patient: Blas CATALINO ANDRY Appointment Provider: Jalyn Reynoso M.D. :1980 A ge:45 Y S ex:Female Date:06/02/2025 Address:[address] [place], [place] [id number] Pcp:ANETA CAR M.D. Subjective: * Chief Complaints: * 1 . HSONO/EB/ MENORRHAGIA AND DYSMENORRHEA. * Medical History: Objective: * Vitals: Assessment: Plan: * Treatment: * Images: Billing Information: * Visit Code: * Procedure Codes: * Electronic signature of Corwin Reynoso MD on 08/01/2025 at 04:46 PM EDT Sign off status: Pending * Appointment Provider: Jalyn Reynoso M.D. Date: 06/02/2025 Generated for Fiorella jung/Era/Mauriitting on: 08/01/2025 04:46 PM EDT
--- OUTSIDE RECORDS SUMMARY | 2025-06-02 10:20 | XMS_ITS ---
Author Organization Total [facility] Address [address] [place] [address] Care Team Providers Care Algebra Tutor Name Role Phone ANETA CAR M.D. Primary Care Provider Ashanti Reyes Unavailable [phone] REASON FOR VISIT HSONO/EB/ MENORRHAGIA AND DYSMENORRHEA Encounters Encounter Location Date Provider Diagnosis [facility] [employer] [facility] [address] [place] [address] 06/02/2025 Ashanti Reynoso Plan Of Treatment Next Appt Details Provider Name:Ashanti Anna acosta, 09/08/2025 01:40:00 PM, [address], [facility] [address], [place], [address], Provider Name:Ashanti acosta, 09/08/2025 01:40:00 PM, [address], [facility] [address], [place], [address], Provider Name:Ashanti acosta, 04/04/2026 08:00:00 AM, [address], [facility] [address], [place], [address], Progress Notes * JAY CÁRDENASOB:[birth year] (45 yo F)Acc No.[id number]:06/02/2025 Patient: Blas CATALINO ANDRY Appointment Provider: Jalyn Reynoso M.D. :1980 A ge:45 Y S ex:Female Date:06/02/2025 Address:[address] [place], [place] [phone] Pcp:ANETA CAR M.D. Subjective: * Chief Complaints: * 1 . HSONO/EB/ MENORRHAGIA AND DYSMENORRHEA. * Medical History: Objective: * Vitals: Assessment: Plan: * Treatment: * Images: Billing Information: * Visit Code: * Procedure Codes: * Electronic signature of Corwin Reynoso MD on 08/01/2025 at 04:45 PM EDT Sign off status: Pending * Appointment Provider: Jalyn Reynoso M.D. Date: 06/02/2025 Generated for Fiorella jung/Era/Mauriitting on: 08/01/2025 04:45 PM EDT
--- OUTSIDE RECORDS SUMMARY | 2025-07-27 09:00 | XMS_ITS ---
Author Organization Total [employer] [facility] Address [address] [employer] [facility] [address] [place] [address] Care Team Providers Care Mannequin Refinisher Name Role Phone ANETA CAR M.D. Primary Care Provider Ashanti Reyes [phone] REASON FOR VISIT HSONO/EB/ MENORRHAGIA AND DYSMENORRHEA (ORANGE FORM DONE) Encounters Encounter Location Date Provider Diagnosis [facility] [employer] [facility] [address] [place] [address] 07/27/2025 Ashanti Reynoso Plan Of Treatment Next Appt Details Provider Name:Ashanti Anna acosta, 09/08/2025 01:40:00 PM, [employer] [address], [place], [address], Provider Name:Ashanti Anna acosta, 09/08/2025 01:40:00 PM, [employer] [address], [place], [address], Provider Name:Ashanti Anna Mitchelljesi dave, 04/04/2026 08:00:00 AM, [employer], [address], [place], [address], Progress Notes * JAY CÁRDENASOB:[birth year] (45 yo F)Acc No.[id number]:07/27/2025 Patient: Blas MOOREHENRIETTAMADISONS Appointment Provider: Jalyn Reynoso M.D. :1980 A ge:45 Y S ex:Female Date:07/27/2025 Address:[address] [place] [address] , [id number] Pcp:ANETA CAR M.D. Subjective: * Chief Complaints: * 1 . HSONO/EB/ MENORRHAGIA AND DYSMENORRHEA (ORANGE FORM DONE). * Medical History: Objective: * Vitals: Assessment: Plan: * Treatment: * Images: Billing Information: * Visit Code: * Procedure Codes: * Electronic signature of Corwin Reynoso MD on 08/01/2025 at 04:46 PM EDT Sign off status: Pending * Appointment Provider: Jalyn Reynoso M.D. Date: 07/27/2025 Generated for Fiorella jung/Era/Mauriitting on: 08/01/2025 04:46 PM EDT
--- OUTSIDE RECORDS SUMMARY | 2025-07-27 09:10 | XMS_ITS ---
Author Organization Total [employer] [facility] Address [address] [place] [address] Care Team Providers Care Handhole Machine Operator Name Role Phone ANETA CAR M.D. Primary Care Provider Ashanti Reyes [phone] REASON FOR VISIT HSONO/EB/ MENORRHAGIA AND DYSMENORRHEA Encounters Encounter Location Date Provider Diagnosis [facility] [employer] [facility] [address] [place] [address] 07/27/2025 Ashanti Reynoso Plan Of Treatment Next Appt Details Provider Name:Ashanti acosta, 09/08/2025 01:40:00 PM, [address] [employer] [facility] [place], [address], Provider Name:Ashanti Anna acosta, 09/08/2025 01:40:00 PM, [address], [facility] [address], [place], [address], Provider Name:Ashanti acosta, 04/04/2026 08:00:00 AM, [address] [employer], [facility] [address], [place], [address], Progress Notes * JAY CÁRDENASOB:[birth year] (45 yo F)Acc No.[id number]:07/27/2025 Patient: Blas CATALINO ANDRY Appointment Provider: Jalyn Reynoso M.D. :1980 A ge:45 Y S ex:Female Date:07/27/2025 Address:[address] [place], [place] [address] Pcp:ANETA CAR M.D. Subjective: * Chief Complaints: [...] 07/27/2025 Generated for Fiorella jung/Era/Mauriitting on: 08/01/2025 04:45 PM EDT
[2025-08-01 15:45] VITALS: BP 144/82; PULSE 75; TEMP 36.4; O2SAT 98; BMI 29.6
--- NOTE | 2025-08-01 15:45 | A.OFFPC_ITS ---
Vital Signs 08/01/25 15:45 08/01/25 16:20 Height 5 ft 7 in Weight 189 lb BMI 29.6 BP 144/82 H 118/80 Blood Pressure Location Lt brachial Lt brachial Position Sitting Sitting Pulse 75 Pulse Source Pulse Oximeter Temp 97.5 F Temp Source Temporal Artery Scan Pulse Oximetry (%) 98 Oxygen Delivery Method Room Air Intake Visit Reasons: vit B 12 def, neck pain Allergies No Known Allergies Allergy (Verified 08/01/25 15:47) Tobacco use date assessed: 08/01/25 Dental Screening Dental Screen Date: 08/01/25 Did you have a dental visit in the last 12 months?: Yes Did you have a dental problem in the last 6 months where you did not have access to dental care?: No Was dental information given to patient?: Patient has dentist [facility] Medical History Tubular adenoma of colon GERD (gastroesophageal reflux disease) Anemia Facial basal cell cancer Overweight (BMI 25.0-29.9) Surgical History H/O bilateral salpingectomy History of tumor History of miscarriage Family History Father Myocardial infarction Mother Cancer, Onset Age: 29 Daughter Major depression Mental health disorder Social History Housing: Apartment Alcohol intake: current Comment: once Q month 1 cup Patient Tobacco Use Status: Never used Tobacco e-Cigarette/Vaping Use: Never Used Second Hand Smoke Exposure: No service: No Current occupational status: employed Cognitive needs: No Hearing needs: No Vision needs: No Questionnaire PHQ-9 Over the last 2 weeks, how often have you been bothered by any of the following problems? 1. Little interest or pleasure in doing things: not at all 2. Feeling down, depressed, or hopeless: not at all 3. Trouble falling or staying asleep, or sleeping too much: several days 4. Feeling tired or having little energy: several days 5. Poor appetite or overeating: several days 6. Feeling bad about yourself - or that you are a failure or have let yourself or your family down: not at all 7. Trouble concentrating on things, such as reading the newspaper or watching television: not at all 8. Moving or speaking so slowly that other people could have noticed. Or the opposite - being so fidgety or restless that you have been moving around a lot more than usual: not at all 9. Thoughts that you would be better off or of hurting yourself in some way: not at all Total score: 3 Source: Developed by Drs. Jagdeep Lopez, Yancy Morrow, Sumanth Mckeon and colleagues, with an educational farida from [employer]. Thrive Questionnaire Date Thrive assessed: 04/06/25 I am a: Patient What is your living situation today?: I have a steady place to live Within the past 12 months, did the food you bought not last and you didn't have the money to get more?: Never true Within the past 12 months, did you worry whether your food would run out before you got money to buy more?: Never true Do you have trouble paying for medicines?: No Do you have trouble getting transportation to medical appointments?: No Do you have trouble paying your heating and electricity bill?: No Do you have trouble taking care of your child, family member or friend?: No Do you have trouble with day-to-day activities such as bathing, preparing meals, shopping, managing finances, etc.?: No Are you currently unemployed and looking for a job?: No Are you interested in more education?: No Please select the resources that you would like help with: None Currently or been in a relationship where the following occur: No concerns reported THRIVE Score: 0 AUDIT C Alcohol Use Questionnaire (AUDIT-C) 1. How often do you have a drink containing alcohol?: Monthly or less 2. How many drinks containing alcohol do you have on a typical day when you are drinking?: 1 or 2 3. How often do you have six or more drinks on one occasion?: Never Total Score: 1 DONALDO-7 AMB Questionnaire DONALDO-7 Date DONALDO - 7 assessed: 04/06/25 Feeling nervous, anxious, or on edge: 0 = Not at all Not being able to stop or control worryin = Not at all Worrying too much about different things: 0 = Not at all Trouble relaxin = Not at all Being so restless that it is hard to sit still: 0 = Not at all Becoming easily annoyed or irritable: 0 = Not at all Feeling afraid as if something awful might happen: 0 = Not at all Total DONALDO-7 score (0-4 normal; 5-9 mild; 10-14 moderate; 15-21 severe): 0 Source: Developed by Drs. Jagdeep Lopez, Yancy Morrow, Sumanth Mckeon and colleagues, with an educational farida from [employer]. Physical exam (Primary Care) Vital Signs: Last Vital Signs Temp 97.5 F 08/01/25 15:45 Pulse 75 08/01/25 15:45 BP 144/82 H 08/01/25 15:45 Pulse Ox 98 08/01/25 15:45 Oxygen Delivery Method Room Air 08/01/25 15:45 BMI result Body Mass Index 29.6 Tobacco/Smoking Status: Tobacco use Status Tobacco use date assessed 08/01/25 08/01/25 15:48 Patient Tobacco Use Status Never used Tobacco 08/01/25 15:48 e-Cigarette/Vaping Use Never Used 08/01/25 15:48 PHQ-9: PHQ-9 Score PHQ-9: Total score 3 08/01/25 15:48 Thrive Assessment: Date of Thrive Assessment Date Thrive assessed 04/06/25 08/01/25 15:48 Currently or been in a relationship where the following occur: No concerns reported Const General: alert; No acute distress Eyes Conjunctivae: conjunctivae normal Resp Auscultation: clear to auscultation bilaterally Cardio Rate: regular rate Rhythm: regular rhythm GI Inspection: Yes normal to inspection Extrem General: Yes normal to inspection and No edema Coding Level of Care Code Est Pt Level 4 (52531) Complex EM visit Add On G2211 Diagnoses Overweight (BMI 25.0-29.9) E66.3 Hypercholesterolemia E78.00 Gastroesophageal reflux disease, unspecified whether esophagitis present K21.9 Esophagitis presence: esophagitis presence not specified Tubular adenoma of colon D12.6 Pernicious anemia D51.0 Weight gain R63.5 Generalized anxiety disorder F41.1 Assessment & Plan Assessment & Plan (1) Overweight (BMI 25.0-29.9): Code(s): E66.3 - Overweight Category: Medical Plan: Diet and exercise (2) Hypercholesterolemia: Code(s): E78.00 - Pure hypercholesterolemia, unspecified Category: Medical Plan: Avoid fried foods, chicken skin, eggs, butter margarine, pastries and meat. Be it pork or beef they have a lot of cholesterol LDL goal of less than 130 and triglyceride of less than 150 (3) GERD (gastroesophageal reflux disease): Code(s): K21.9 - Gastro-esophageal reflux disease without esophagitis Category: Medical Qualifiers: Esophagitis presence: esophagitis presence not specified Qualified Code(s): K21.9 - Gastro-esophageal reflux disease without esophagitis Plan: Avoid the foods that causes that usually spicy foods, tomato products, juices, coffee, soda and foods that your sensitive to. After eating do not lie down, allow 3-4 hours before in lie down. And keep the head of bed above 30 degrees to avoid the acid from going up. (4) Tubular adenoma of colon: Code(s): D12.6 - Benign neoplasm of colon, unspecified Category: Medical Plan: Discussed that the colonoscopy done had tubular adenoma. Advised repeat in 3-5 years (5) Pernicious anemia: Comment: Parietal cell antibody November2021 Code(s): D51.0 - Vitamin B12 deficiency anemia due to intrinsic factor deficiency Category: Medical Plan: Continue to have the B12 (6) Weight gain: Code(s): R63.5 - Abnormal weight gain Category: Medical (7) Generalized anxiety disorder: Code(s): F41.1 - Generalized anxiety disorder Category: Medical Plan: Patient states has support dog that she has been using to help her cope up with the stress with her life. Plan History of Present Illness The patient is a 45-year-old female presenting with the management of multiple chronic conditions, including GERD, pernicious anemia, and hypercholesterolemia. She has a history of GERD with moderate gastric erythema and erosions noted during a recent gastroenterology follow-up. The patient was advised to switch from pantoprazole to rabeprazole, but she has not yet picked up the medication. The patient has a history of pernicious anemia, with recent blood work showing normal blood counts and no anemia. However, her vitamin B12 levels remain low, recorded at 176, which is below the desired level of 300. Hypercholesterolemia is also part of her medical history, with a previous cholesterol level of 123 noted as normal. The patient is advised to maintain an LDL goal of less than 130 and triglycerides of less than 150. The patient had a tubular adenoma of the colon removed, and a follow-up colonoscopy is recommended in 3 to 5 years. The adenoma was benign, but there is a risk of recurrence, necessitating regular monitoring. The patient reports a recent weight gain of 10 pounds over three weeks, despite maintaining her usual diet and exercise routine. She experiences fatigue and suspects hormonal changes may be contributing to her weight issues. The patient denies nausea, vomiting, fever, bowel movement issues, diarrhea, urinary problems, or leg swelling. She acknowledges not drinking enough water and reports feeling fatigued when climbing stairs. Health Maintenance - Colonoscopy follow-up recommended in 3 to 5 years due to previous tubular adenoma - Mammogram up to date as of July 2025 - Blood work to monitor vitamin B12 and cholesterol levels - Lifestyle modifications discussed for weight management and GERD control Social History - Exercise: Patient walks 30 to 45 minutes daily - Weight management: Reports a recent weight gain of 10 pounds despite regular exercise and diet - Emotional support: Has a Yorkie for emotional support and listens to preachers for motivation Review of Systems - General: Reports fatigue, recent weight gain of 10 pounds - Gastrointestinal: Reports GERD symptoms, denies nausea, vomiting, diarrhea, or bowel movement issues - Genitourinary: Denies urinary problems - Musculoskeletal: Denies leg swelling - Neurological: Reports fatigue when climbing stairs Physical Exam - Cardiovascular: Blood pressure 118/80 mmHg Results - Labs: Normal blood count, low vitamin B12 at 176, low vitamin D - Tests: Previous cholesterol level at 123, normal Plan Patient was informed and verbally consented to the use of an ambient scribe for clinic note documentation during this visit. 1. Gastroesophageal Reflux Disease (Gerd) The patient is advised to switch from pantoprazole to rabeprazole for better management of GERD symptoms, although she has not yet started the new medication. Dietary modifications were discussed, including avoiding spicy foods, tomato products, and caffeine to help control symptoms. 2. Pernicious Anemia The patient's vitamin B12 levels remain low, and she is advised to continue vitamin B12 supplementation to address this deficiency. 3. Hypercholesterolemia The patient is advised to maintain an LDL goal of less than 130 and triglycerides of less than 150 through diet and exercise. 4. Tubular Adenoma Of The Colon A follow-up colonoscopy is recommended in 3 to 5 years to monitor for recurrence of tubular adenoma. 5. Vitamin B12 Deficiency The patient is advised to continue vitamin B12 supplementation to address the deficiency, with levels currently at 176, below the desired 300. 6. Vitamin D Deficiency The patient is advised to continue vitamin D supplementation to address the deficiency. Discussion Notes I discussed with the patient the importance of managing her GERD through medication and dietary changes. We also reviewed her vitamin B12 and D defi ciencies, emphasizing the need for continued supplementation. The patient was informed about the follow-up colonoscopy in 3 to 5 years due to her history of tubular adenoma. We talked about maintaining cholesterol levels through diet and exercise, and I advised her to monitor her weight and fatigue, considering possible hormonal influences. A referral for blood work was made to check her thyroid and glucose levels. Patient Instructions - Start taking rabeprazole as prescribed for GERD management. - Avoid spicy foods, tomato products, and caffeine to help control GERD symptoms. - Continue vitamin B12 and D supplementation as advised. - Schedule a follow-up colonoscopy in 3 to 5 years. - Maintain a healthy diet and exercise routine to manage cholesterol levels. - Monitor weight and fatigue, and report any significant changes. - Complete the blood work as discussed, including thyroid and glucose levels. Orders: Orders UA CC w/rflx Micro + Cult Today R30.0 - Dysuria, R63.5 - Abnormal weight gain Referrals Psychiatry Outpatient Consultation Service F41.1 - Generalized anxiety disorder
[2025-08-01 16:20] VITALS: BP 118/80
--- OUTSIDE RECORDS SUMMARY | 2025-08-01 16:45 | XMS_ITS | Patient Health Record ---
Author Organization [facility] Address [address] [place] [address] Care Team Providers Care Obstetrics Gynecology Md Name Role Phone ANETA CAR M.D. Primary Care Provider Ashanti Reyes Unavailable [phone] Allergies No Known Allergies Results Component Value Reference Range Notes PDF Report Reviewed date:04/02/2025 07:22:14 PM Interpretation: Performing Lab:[facility], [address], [address], [place], Phone - [phone], Director - [facility] Notes/Report: Clinical Information:SRC: PDF Report Reviewed date:04/01/2025 08:59:49 AM Interpretation: Performing Lab:[facility], [address], [address], [place], Phone - [phone], Director - [facility] Notes/Report: Clinical Information:Vaginal/Cervical, LMP: 03/02 02/24 [id number] LMP / Prev Treat...[id number] Dates / Results....06/13/21 NIL, Neg HPV No. of containers..01 ThinPrep Vial HCV Antibody-[id number] Reviewed date:04/02/2025 07:23:12 PM Interpretation: Performing Lab:[facility], [address], [address], [place], Phone - [phone], Director - [facility] Notes/Report: Clinical Information:SRC: Hep C Virus Ab Non Reactive Non Reactive HCV antibody alone does not differentiate between previously resolved infection and active infection. Equivocal and Reactive HCV antibody results should be followed up with an HCV RNA test to support the diagnosis of active HCV infection. RPR Qn+TP [id number] Reviewed date:04/02/2025 07:22:53 PM Interpretation: Performing Lab:[facility] [address], [address], [place], Phone - [phone], Director - [facility] Notes/Report: Clinical Information:SRC: Rapid Plasma Reagin, [...] utilized, such as Treponema pallidum (Syphilis) Screening [place] (829238) or Rapid Plasma Reagin (RPR) Test With Reflex to Quantitative RPR and Confirmatory Treponema pallidum Antibodies (234838). Treponema pallidum Antibodies Non Reactive Non Reactive [id number]-[id number] IGP, CtNg Culture 30 Plus Reviewed date:04/01/2025 09:02:34 AM Interpretation: Performing Lab:[facility], [address], [place], Phone - [phone], Director - [facility] Notes/Report: Clinical Information:Vaginal/Cervical, LMP: 03/02 02/24 [id number] LMP / Prev Treat...[id number]=[id number] Dates / Results....06/13/21 NIL, Neg HPV No. of containers..01 ThinPrep Vial DIAGNOSIS: NEGATIVE FOR IN TRAEPITHELIAL LESION OR MALIGNANCY. Specimen adequacy: Satisfactory for evaluation. Endocervical and/or squamous metaplastic cells (endocervical component) are present. Clinician provided ICD10: Z01.419 Z72.51 Performed by: Kojo Sarkar , Boot Lace Cutter Machine (ASCP) . . Note: The Pap smear [...] Lab:[facility], [address], [address], [place], Phone - [phone], Director - [facility] Notes/Report: Clinical Information:SRC: Mycoplasma genitalium BRIDGET Negative Negative HIV Ab/p24 Ag with Reflex-[id number] Reviewed date:04/02/2025 07:23:22 PM Interpretation: Performing Lab:[facility], [address], [address], [place], Phone - [phone], Director - [facility] Notes/Report: Clinical Information:SRC: HIV Ab/p24 Ag Screen Non Reactive Non Reactive HIV-1/HIV-2 antibodies and HIV-1 p24 antigen were NOT detected. There is no laboratory evidence of HIV infection. HIV Negative HBsAg Screen-[id number] Reviewed date:04/02/2025 07:22:28 PM Interpretation: Performing Lab:[facility], [address], [address], [place], Phone - [phone], Director - [facility] Notes/Report: Clinical Information:SRC: HBsAg Screen Negative [...] Risk Notes Problem Excessive and frequent menstruation (478776430) Excessive and frequent menstruation with regular cycle (N92.0) Active confirmed Problem Dysmenorrhea (951880277) Dysmenorrhea, unspecified (N94.6) Active confirmed Problem Endometriosis (184442214) Endometriosis, unspecified (N80.9) Active confirmed Vital Signs Temperature 97.3 degrees Fahrenheit 03/30/2025 Blood pressure diastolic 76 mm Hg 03/30/2025 Height 65 in in 03/30/2025 Blood pressure systolic 126 mm Hg 03/30/2025 Weight 180 lbs 03/30/2025 BMI 29.95 kg/m2 03/30/2025 Encounters Encounter Location Date Provider Diagnosis [address] [place] [address] 03/30/2025 Ashanti Reynoso Encounter for gynecological examination [...] Provider Name:Ashanti watkinsdonnell, 09/08/2025 01:40:00 PM, [address], [address], [place], [address], Provider Name:Ashanti watkinsdonnell, 09/08/2025 01:40:00 PM, [address], [address], [place], [address], Provider Name:Ashanti Nguyen robertojaneydonnell, 04/04/2026 08:00:00 AM, [address], [address], [place], [address], Insurance Providers Payer Name Payer Address Payer Phone Subscriber Number Group Number Insured Name Patient Relationship to Insured Coverage Start Date Coverage End Date [facility] [address] [place] [address] [id number] ANDRY CÁRDENAS Self - patient is the insured Medical (General) History Medical History History ICD Code Dysmenorrhea, unspecified N94.6 Endometriosis, unspecified N80.9 Excessive and frequent menstruation with regular cycle N92.0 Surgical History Surgery Date(Month/Year) Bilateral Tubal Ligation - Dr. Blanton 11/08/19 S/P Oophorcystic 2008 Hospitalization History Reason Date(Month/Year) See Surgical Hx 3 Vaginal Deliveries
== END 2025-08-01 16:31 | disposition home or self-care (01) ==
LOC: HO.HMCH 15:31
PROVIDERS: PCP Internal Medicine; Visit Provider Internal Medicine
DX: E66.3 Overweight (principal); E78.00 Pure hypercholesterolemia, unspecified; K21.9 Gastro-esophageal reflux disease without esophagitis; D12.6 Benign neoplasm of colon, unspecified; D51.0 Vitamin B12 deficiency anemia due to intrinsic factor deficiency; R63.5 Abnormal weight gain; F41.1 Generalized anxiety disorder

== ENCOUNTER 2025-08-04 06:14 | Outpatient (REF) | payer OTHER, SELFPAY ==
--- OUTSIDE RECORDS SUMMARY | 2025-06-02 10:00 | XMS_ITS ---
Author Organization Total [employer] [facility] Address [address] [place] [address] Care Team Providers Care Job Training Supervisor Name Role Phone ANETA CAR M.D. Primary Care Provider Ashanti Reyes Unavailable [phone] REASON FOR VISIT HSONO/EB/ MENORRHAGIA AND DYSMENORRHEA Encounters Encounter Location Date Provider Diagnosis [facility] [address] [place] [address] 06/02/2025 Ashanti Reynoso Plan Of Treatment Next Appt Details Provider Name:Ashanti Anna acosta, 09/08/2025 01:40:00 PM, [address], [facility] [address], [place], [address], Provider Name:Ashanti acosta, 09/08/2025 01:40:00 PM, [address], [facility] [address], [place], [address], Provider Name:Ashanti acosta, 04/04/2026 08:00:00 AM, [address], [facility] [address], [place], [address], Progress Notes * JAY CÁRDENASOB:[birth year] (45 yo F)Acc No.[id number]:06/02/2025 Patient: Blas CATALINO ANDRY Appointment Provider: Jalyn Reynoso M.D. :1980 A ge:45 Y S ex:Female Date:06/02/2025 Address:[address] [place], [place] [id number] Pcp:ANETA CAR M.D. Subjective: * Chief Complaints: * 1 . HSONO/EB/ MENORRHAGIA AND DYSMENORRHEA. * Medical History: Objective: * Vitals: Assessment: Plan: * Treatment: * Images: Billing Information: * Visit Code: * Procedure Codes: * Electronic signature of Corwin Reynoso MD on 08/04/2025 at 06:17 AM EDT Sign off status: Pending * Appointment Provider: Jalyn Reynoso M.D. Date: 0 06/02/2025 Generated for Fiorella jung/Era/Mauriitting on: 1 06:17 AM EDT
--- OUTSIDE RECORDS SUMMARY | 2025-06-02 10:20 | XMS_ITS ---
Author Organization Total [employer] [facility] Address [address] [place] [address] Care Team Providers Care Web Site Specialist Name Role Phone ANETA CAR M.D. Primary Care Provider Ashanti Reyes Unavailable [phone] REASON FOR VISIT HSONO/EB/ MENORRHAGIA AND DYSMENORRHEA Encounters Encounter Location Date Provider Diagnosis [facility] [employer] [facility] [address] [place] [address] 06/02/2025 Ashanti Reynoso Plan Of Treatment Next Appt Details Provider Name:Ashanti Anna acosta, 09/08/2025 01:40:00 PM, [address], [facility] [address], [place], [address], Provider Name:Ashanti acosta, 09/08/2025 01:40:00 PM, [address], [facility] [address], [place], [address], Provider Name:Ashanti acosta, 04/04/2026 08:00:00 AM, [address], [facility] [address], [place], [address], Progress Notes * JAY CÁRDENASOB:[birth year] (45 yo F)Acc No.[id number]:06/02/2025 Patient: Blas CATALINO ANDRY Appointment Provider: Jalyn Reynoso M.D. :1980 A ge:45 Y S ex:Female Date:06/02/2025 Address:[address] [place], [place] [phone] Pcp:ANETA CAR M.D. Subjective: * Chief Complaints: [...]
--- OUTSIDE RECORDS SUMMARY | 2025-07-27 09:00 | XMS_ITS ---
Author Organization Total [employer] [facility] Address [address] [facility] [address] [place] [address] Care Team Providers Care Steel Die Press Set Up Operator Name Role Phone ANETA CAR M.D. Primary Care Provider Ashanti Reyes [phone] REASON FOR VISIT HSONO/EB/ MENORRHAGIA AND DYSMENORRHEA (ORANGE FORM DONE) Encounters Encounter Location Date Provider Diagnosis [facility] [address] [place] [address] 07/27/2025 Ashanti Reynoso Plan Of Treatment Next Appt Details Provider Name:Ashanti Anna acosta, 09/08/2025 01:40:00 PM, [employer], [address], [place], [address], Provider Name:Ashanti Anna acosta, 09/08/2025 01:40:00 PM, [employer] [address], [place], [address], Provider Name:Ashanti Anna Mitchelljesi dave, 04/04/2026 08:00:00 AM, [employer], [facility] [address], [place], [address], Progress Notes * JAY CÁRDENASOB:[birth year] (45 yo F)Acc No.[id number]:07/27/2025 Patient: Blas MOOREHENRIETTAMADISONS Appointment Provider: Jalyn Reynoso M.D. :1980 A ge:45 Y S ex:Female Date:07/27/2025 Address:[address] [place] [address] , [facility] Pcp:ANETA CAR M.D. Subjective: * Chief Complaints: * 1 . HSONO/EB/ MENORRHAGIA AND DYSMENORRHEA (ORANGE FORM DONE). * Medical History: Objective: * Vitals: Assessment: Plan: * Treatment: * Images: Billing Information: * Visit Code: * Procedure Codes: * Electronic signature of Corwin Reynoso MD on 08/04/2025 at 06:18 AM EDT Sign off status: Pending * Appointment Provider: Jalyn Reynoso M.D. Date: 0 07/27/2025 Generated for Fiorella jung/Era/Mauriitting on: 1 06:18 AM EDT
--- OUTSIDE RECORDS SUMMARY | 2025-07-27 09:10 | XMS_ITS ---
Author Organization Total [employer] [facility] Address [address] [place] [address] Care Team Providers Care Patient Care Specialist Name Role Phone ANETA CAR M.D. Primary Care Provider Ashanti Reyes [phone] REASON FOR VISIT HSONO/EB/ MENORRHAGIA AND DYSMENORRHEA Encounters Encounter Location Date Provider Diagnosis [facility] [employer] [facility] [address] [place] [address] 07/27/2025 Ashanti Reynoso Plan Of Treatment Next Appt Details Provider Name:Ashanti acosta, 09/08/2025 01:40:00 PM, [address] [employer] [facility] [place], [address], Provider Name:Ashanti Anna acosta, 09/08/2025 01:40:00 PM, [address] [employer], [facility] [address], [place], [address], Provider Name:Ashanti acosta, 04/04/2026 08:00:00 AM, [address] [employer], [facility] [address], [place], [address], Progress Notes * JAY CÁRDENASOB:[birth year] (45 yo F)Acc No.[id number]:07/27/2025 Patient: Blas CATALINO ANDRY Appointment Provider: Jalyn Reynoso M.D. :1980 A ge:45 Y S ex:Female Date:07/27/2025 Address:[address] [place] [id number] Pcp:ANETA CAR M.D. Subjective: * Chief Complaints: [...] 07/27/2025 Generated for Fiorella jung/Era/Mauriitting on: 1 06:17 AM EDT
--- OUTSIDE RECORDS SUMMARY | 2025-08-04 06:17 | XMS_ITS | Patient Health Record ---
Author Organization [facility] Address [address] [place] [address] Care Team Providers Care Scullion Chief Name Role Phone ANETA CAR M.D. Primary Care Provider Ashanti Reyes Unavailable [phone] Allergies No Known Allergies Results Component Value Reference Range Notes HCV Antibody-[id number] Reviewed date:04/02/2025 07:23:12 PM Interpretation: Performing Lab:[facility], [address], [address], [place], Phone - [phone], Director - [facility] Notes/Report: Clinical Information:SRC: Hep C Virus Ab Non Reactive Non Reactive HCV antibody alone does not differentiate between previously resolved infection and active infection. Equivocal and Reactive HCV antibody results should be followed up with an HCV RNA test to support the diagnosis of active HCV infection. RPR Qn+TP [id number] Reviewed date:04/02/2025 07:22:53 PM Interpretation: Performing Lab:[facility], [address], [address], [place], Phone - [phone], Director - [facility] Notes/Report: Clinical Information:SRC: Rapid Plasma [...] utilized, such as Treponema pallidum (Syphilis) Screening [place] (275730) or Rapid Plasma Reagin (RPR) Test With Reflex to Quantitative RPR and Confirmatory Treponema pallidum Antibodies (954297). Treponema pallidum Antibodies Non Reactive Non Reactive [id number]-[id number] IGP, CtNg Culture 30 Plus Reviewed date:04/01/2025 09:02:34 AM Interpretation: Performing Lab:[facility], [address], [place], Phone - [phone], Director - [facility] Notes/Report: Clinical Information:Vaginal/Cervical, LMP: 03/02 02/24 [id number] LMP / Prev Treat...[id number] Dates / Results....06/13/21 NIL, Neg HPV No. of containers..01 ThinPrep Vial DIAGNOSIS: NEGATIVE FOR IN TRAEPITHELIAL LESION OR MALIGNANCY. Specimen adequacy: Satisfactory for evaluation. Endocervical and/or squamous metaplastic cells (endocervical component) are present. Clinician provided ICD10: Z01.419 Z72.51 Performed by: Kojo Sarkar , Package Collector (ASCP) . . Note: The Pap smear [...] 25 Reviewed date:04/02/2025 07:22:41 PM Interpretation: Performing Lab:[facility] [address], [address], [place], Phone - [phone], Director - [facility] Notes/Report: Clinical Information:SRC:UC Mycoplasma genitalium BRIDGET Negative Negative HIV Ab/p24 Ag with Reflex-[id number] Reviewed date:04/02/2025 07:23:22 PM Interpretation: Performing Lab:[facility] [address], [address], [employer], Phone - [phone], Director - [facility] Notes/Report: Clinical Information:SRC: HIV Ab/p24 Ag Screen Non Reactive Non Reactive HIV-1/HIV-2 antibodies and HIV-1 p24 antigen were NOT detected. There is no laboratory evidence of HIV infection. HIV Negative HBsAg Screen-[id number] Reviewed date:04/02/2025 07:22:28 PM Interpretation: Performing Lab:[facility], [address], [address], [place], Phone - [phone], Director - [facility] Notes/Report: Clinical Information:SRC: HBsAg Screen Negative Negative Urinalysis Reviewed date:03/30/2025 08:18:20 AM Interpretation: Performing Lab: Notes/Report: PH 8.0 PROTEIN Neg GLUCOSE Neg BLOOD Neg PDF Report Reviewed date:04/01/2025 08:59:49 AM Interpretation: Performing Lab:[facility], [address], [address], [place], Phone - [phone], Director - [facility] Notes/Report: Clinical Information:Vaginal/Cervical, LMP: 03/02 02/24 [id number] LMP / Prev Treat...[id number]=[id number] Dates / Results....06/13/21 NIL, Neg HPV No. of containers..01 ThinPrep Vial PDF Report Reviewed date:04/02/2025 07:22:14 PM Interpretation: Performing Lab:[facility], [address], [address], [place], Phone - [phone], Director - [facility] Notes/Report: Clinical Information:SRC: Reason For Referral No [...] Risk Notes Problem Excessive and frequent menstruation (185273934) Excessive and frequent menstruation with regular cycle (N92.0) Active confirmed Problem Dysmenorrhea (213982208) Dysmenorrhea, unspecified (N94.6) Active confirmed Problem Endometriosis (897868873) Endometriosis, unspecified (N80.9) Active confirmed Vital Signs Temperature 97.3 degrees Fahrenheit 03/30/2025 Blood pressure diastolic 76 mm Hg 03/30/2025 Height 65 in in 03/30/2025 Blood pressure systolic 126 mm Hg 03/30/2025 Weight 180 lbs 03/30/2025 BMI 29.95 kg/m2 03/30/2025 Encounters Encounter Location Date Provider Diagnosis [address] [place] [address] 03/30/2025 Ashanti Reynoso Encounter for gynecological examination [...] Provider Name:Ashanti watkinsdonnell, 09/08/2025 01:40:00 PM, [address], [address], [place], [address], Provider Name:Ashanti watkinsdonnell, 09/08/2025 01:40:00 PM, [address], [address], [place], [address], Provider Name:Ashanti Nguyen robertojaneydonnell, 04/04/2026 08:00:00 AM, [address], [address], [place], [address], Insurance Providers Payer Name Payer Address Payer Phone Subscriber Number Group Number Insured Name Patient Relationship to Insured Coverage Start Date Coverage End Date [facility] [address] [place] [address] [id number] ANDRY CÁRDENAS Self - patient is the insured Medical (General) History Medical History History ICD Code Dysmenorrhea, unspecified N94.6 Endometriosis, unspecified N80.9 Excessive and frequent menstruation with regular cycle N92.0 Surgical History Surgery Date(Month/Year) Bilateral Tubal Ligation - Dr. Blanton 11/08/19 S/P Oophorcystic 2008 Hospitalization History Reason Date(Month/Year) See Surgical Hx 3 Vaginal Deliveries
[2025-08-04 06:34] LABS: MANUAL DIFF FLAG NO
[2025-08-04 07:39] LABS: Hematocrit 38.6 % (37.0-47.0); Hemoglobin 12.6 g/dl (12.0-16.0); Imm Gran Abs Auto 0.01 X10*3/uL (0.00-0.03); Imm Gran Pct Auto 0.2 % (0.0-0.4); Lymphocytes Absolute Auto 2.4 X10*3/uL (1.2-4.9); Mean Corpuscular HGB Conc 32.6 g/dl (31.0-35.0); Mean Corpuscular Hemoglobin 28.4 pg (27.0-33.0); Mean Corpuscular Volume 87.1 fL (80.0-98.0); NRBC Abs Auto 0.000 X10*3/uL (0.0-0.012); NRBC Pct Auto 0.0 /100WBC (0.0-0.2); Platelet Count 264 X10*3/uL (160-400); Red Blood Count 4.43 X10*6/uL (4.20-5.50); White Blood Count 6.3 X10*3/uL (4.8-10.8)
[2025-08-04 07:46] LABS: Appearance Urine Clear; Glucose Urine UA Negative (Negative); PH 7.0 (5.0-9.0); Specific Gravity - Urine 1.025 (1.005-1.025)
[2025-08-04 08:13] LABS: Alanine Aminotransferase 25 U/L (0-31); Albumin Level 4.1 g/dL (3.5-5.0); Alkaline Phosphatase 74 U/L (39-117); Anion Gap 8 (12-20); Aspartate Amino Transferase 30 U/L (5-31); Blood Urea Nitrogen 13 mg/dL (9-16); Calcium 8.7 mg/dL (8.4-10.2); Carbon Dioxide 29 mmol/L (22-29); Chloride 108 mmol/L (96-108); Cholesterol 208 mg/dL (<200); Estimated Glomerular Filt Rate > 60; HDL Cholesterol 43 mg/dL (>40); Potassium 4.3 mmol/L (3.3-5.1); Sodium 141 mmol/L (135-145); Total Protein 6.6 g/dL (6.5-8.0); Triglycerides 118 mg/dL (<150)
[2025-08-04 08:33] LABS: Free T4 (Free Thyroxine) 0.94 ng/dL (0.71-1.85); Thyroid Stimulating Hormone 2.21 uIU/mL (0.32-4.0)
[2025-08-04 08:35] LABS: Folate 6.7 ng/mL (> or = 4.0); Vitamin B12 180 pg/mL (200-900)
== END 2025-08-04 06:15 | disposition home or self-care (01) ==
LOC: HO.LAB 06:14
PROVIDERS: PCP Internal Medicine; Visit Provider Internal Medicine
DX: E53.8 Deficiency of other specified B group vitamins (principal); E78.00 Pure hypercholesterolemia, unspecified; R30.0 Dysuria; R63.5 Abnormal weight gain; Z13.1 Encounter for screening for diabetes mellitus; Z13.21 Encounter for screening for nutritional disorder
CPT/HCPCS: 36415; 80053; 80061; 81003; 82306; 82607; 82746; 83036; 84439; 84443; 85025

== ENCOUNTER 2025-08-22 13:14 | Outpatient (AMB) | payer OTHER, SELFPAY ==
--- OUTSIDE RECORDS SUMMARY | 2024-06-23 10:00 | XMS_ITS ---
Author Organization [employer] [facility] Address [address] [place] [address] Care Team Providers Care Attic Blower Name Role Phone ANETA CAR M.D. 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 Encounter Location Date Provider Diagnosis [facility] [employer] [facility] [address] [place] [address] 06/23/2024 Ashanti Reynoso Plan Of Treatment Next Appt Details Provider Name:Ashanti acosta, 09/08/2025 01:40:00 PM, [address], [address], [place], [address], Provider Name:Ashanti Anna acosta, 09/08/2025 01:40:00 PM, [address], [address], [place], [address], Provider Name:Ashanti acosta, 04/04/2026 08:00:00 AM, [address], [address], [place], [address], Progress Notes * JAY CÁRDENASOB:[birth year] (45 yo F)Acc No.[id number]:06/23/2024 PROGRESS NOTES Patient: ANDRY KOCH Appointment Provider: Jalyn Reynoso M.D. :1980 A ge:44 Y S ex:Female Date:06/23/2024 Address:[address] [place] [address] , [id number] Pcp:ANETA CAR M.D. Subjective: * Chief Complaints: * 1 . 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 * Medical History: Objective: * Vitals: Assessment: Plan: * Treatment: * Images: Billing Information: * Visit Code: * Procedure Codes: * Electronic signature of Corwin Reynoso MD on 08/22/2025 at 05:16 PM EDT Sign off status: Pending * Appointment Provider: Jalyn Reynoso M.D. Date: 0 06/23/2024 Generated for Fiorella jung/Era/eTransmitting on: 1 05:16 PM EDT
--- OUTSIDE RECORDS SUMMARY | 2024-11-14 04:00 | XMS_ITS ---
Author Organization Total [employer] [facility] Address [address] [facility] [address] [place] [address] Care Team Providers Care Database Design Analyst Name Role Phone ANETA CAR M.D. Primary Care Provider Ashanti Reyes [phone] REASON FOR VISIT Annual (YELLOW FORM DONE) Encounters Encounter Location Date Provider Diagnosis [facility] [employer] [facility] [address] [place] [address] 11/14/2024 Ashanti Reynoso Plan Of Treatment Next Appt Details Provider Name:Ashanti acosta, 09/08/2025 01:40:00 PM, [address], [address], Provider Name:Ashanti acosta, 09/08/2025 01:40:00 PM, [address], [address], [place], [address], Provider Name:Ashanti acosta, 04/04/2026 08:00:00 AM, [address] [employer], [place], [address], Progress Notes * JAY CÁRDENASOB:[birth year] (45 yo F)Acc No.[id number]:11/14/2024 PROGRESS NOTES Patient: Blas MOOREHENRIETTAMADISONS Appointment Provider: Jalyn Reynoso M.D. :1980 A ge:44 Y S ex:Female Date:11/14/2024 Address:[address] [place] [address] , [facility] Pcp:ANETA CAR M.D. Subjective: * Chief Complaints: [...] 0 11/14/2024 Generated for Fiorella jung/Era/Meghnaransmitting on: 1 05:16 PM EDT
--- OUTSIDE RECORDS SUMMARY | 2025-06-02 10:00 | XMS_ITS ---
Author Organization Total [employer] [facility] Address [address] [place] [address] Care Team Providers Care Assembling Motor Builder Name Role Phone ANETA CAR M.D. Primary Care Provider Ashanti Reyes Unavailable [phone] REASON FOR VISIT HSONO/EB/ MENORRHAGIA AND DYSMENORRHEA Encounters Encounter Location Date Provider Diagnosis [facility] [employer] [facility] [address] [place] [address] 06/02/2025 Ashanti Reynoso Plan Of Treatment Next Appt Details Provider Name:Ashanti Anna acosta, 09/08/2025 01:40:00 PM, [address], [facility] [address], [place], [address], Provider Name:Ashanti Anna acosta, 09/08/2025 01:40:00 PM, [address], [facility] [address], [place], [address], Provider Name:Ashanti acosta, 04/04/2026 08:00:00 AM, [address], [facility] [address], [place], [address], Progress Notes * JAY CÁRDENASOB:[birth year] (45 yo F)Acc No.[id number]:06/02/2025 Patient: Blas CATALINO ANDRY Appointment Provider: Jalyn Reynoso M.D. :1980 A ge:45 Y S ex:Female Date:06/02/2025 Address:[address] [place], [place] [id number] Pcp:ANETA CAR M.D. Subjective: * Chief Complaints: * 1 . HSONO/EB/ MENORRHAGIA AND DYSMENORRHEA. * Medical History: Objective: * Vitals: Assessment: Plan: * Treatment: * Images: Billing Information: * Visit Code: * Procedure Codes: * Electronic signature of Corwin Reynoso MD on 08/22/2025 at 05:15 PM EDT Sign off status: Pending * Appointment Provider: Jalyn Reynoso M.D. Date: 0 06/02/2025 Generated for Fiorella jung/Era/Mauriitting on: 1 05:15 PM EDT
--- OUTSIDE RECORDS SUMMARY | 2025-06-02 10:20 | XMS_ITS ---
Author Organization Total [address] [facility] Address [address] [place] [address] Care Team Providers Care Business Planning Manager Name Role Phone ANETA CAR M.D. Primary Care Provider Ashanti Reyes Unavailable [phone] REASON FOR VISIT HSONO/EB/ MENORRHAGIA AND DYSMENORRHEA Encounters Encounter Location Date Provider Diagnosis [facility] [employer] [facility] [address] [place] [address] 06/02/2025 Ashanti Reynoso Plan Of Treatment Next Appt Details Provider Name:Ashanti Anna acosta, 09/08/2025 01:40:00 PM, [address], [facility] [address], [place], [address], Provider Name:Ashanti Anna acosta, 09/08/2025 01:40:00 PM, [address], [facility] [address], [place], [address], Provider Name:Ashanti acosta, 04/04/2026 08:00:00 AM, [address], [facility] [address], [place], [address], Progress Notes * JAY CÁRDENASOB:[birth year] (45 yo F)Acc No.[id number]:06/02/2025 Patient: Blas CATALINO ANDRY Appointment Provider: Jalyn Reynoso M.D. :1980 A ge:45 Y S ex:Female Date:06/02/2025 Address:[address] [place], [place] [phone] Pcp:ANETA CAR M.D. Subjective: * Chief Complaints: [...]
--- OUTSIDE RECORDS SUMMARY | 2025-07-27 09:00 | XMS_ITS ---
Author Organization [facility] Address [address] [facility] [address] [place] [address] Care Team Providers Care Fur Tinter Name Role Phone ANETA CAR M.D. Primary Care Provider Ashanti Reyes [phone] REASON FOR VISIT HSONO/EB/ MENORRHAGIA AND DYSMENORRHEA (ORANGE FORM DONE) Encounters Encounter Location Date Provider Diagnosis [facility] [address] [place] [address] 07/27/2025 Ashanti Reynoso Plan Of Treatment Next Appt Details Provider Name:Ashanti Anna acosta, 09/08/2025 01:40:00 PM, [employer] [address], [place], [address], Provider Name:Ashanti Anna acosta, 09/08/2025 01:40:00 PM, [employer] [address], [place], [address], Provider Name:Ashanti Anna Mitchelljesi dave, 04/04/2026 08:00:00 AM, [employer], [facility] [address], [place], [address], Progress Notes * JAY CÁRDENASOB:[birth year] (45 yo F)Acc No.[id number]:07/27/2025 Patient: Blas MOOREHENRIETTAMADISONS Appointment Provider: Jalyn Reynoso M.D. :1980 A ge:45 Y S ex:Female Date:07/27/2025 Address:[address] [place] [address] , [facility] Pcp:ANETA CAR M.D. Subjective: * Chief Complaints: [...] 07/27/2025 Generated for Fiorella jung/Era/Mauriitting on: 1 05:15 PM EDT
--- OUTSIDE RECORDS SUMMARY | 2025-07-27 09:10 | XMS_ITS ---
Author Organization Total [employer] [facility] Address [address] [place] [address] Care Team Providers Care Product Design Engineer Name Role Phone ANETA CAR M.D. Primary Care Provider Ashanti Reyes [phone] REASON FOR VISIT HSONO/EB/ MENORRHAGIA AND DYSMENORRHEA Encounters Encounter Location Date Provider Diagnosis [facility] [employer] [facility] [address] [place] [address] 07/27/2025 Ashanti Reynoso Plan Of Treatment Next Appt Details Provider Name:Ashanti acosta, 09/08/2025 01:40:00 PM, [address] [employer] [facility] [place], [address], Provider Name:Ashanti Anna acosta, 09/08/2025 01:40:00 PM, [address] [employer], [facility] [address], [place], [address], Provider Name:Ashanti acosta, 04/04/2026 08:00:00 AM, [address], [facility] [address], [place], [address], Progress Notes * JAY CÁRDENASOB:[birth year] (45 yo F)Acc No.[id number]:07/27/2025 Patient: Blas CATALINO ANDRY Appointment Provider: Jalyn Reynoso M.D. :1980 A ge:45 Y S ex:Female Date:07/27/2025 Address:[address] [place], [place] [address] Pcp:ANETA CAR M.D. Subjective: * Chief Complaints: [...]
--- NOTE | 2025-08-22 13:25 | AM.OFFVISNUR ---
Intake Visit Reasons: b-12 shot Allergies No Known Allergies Allergy (Verified 08/01/25 15:47) Office Meds cyanocobalamin (vitamin B-12) 1,000 mcg/mL injection solution Performing Provider: Chaka Michaels MD [facility] Administered by: Enma Wood RN on 08/22/25 13:25 Dose Route Admin Location Dispensed Lot Number Expiration Date [facility] Direct Care Worker 1,000 mcg IM left deltoid 1 mL [id number] 10/01/26 61737-299-39 [employer] Total Dispensed Waste 1 mL 0 % Assessment & Plan Assessment & Plan Orders: Orders AMB Vitamin B12 Injection Patient Supplied Today E53.8 - Deficiency of other specified B group vitamins Coding
--- OUTSIDE RECORDS SUMMARY | 2025-08-22 17:15 | XMS_ITS | Patient Health Record ---
Author Organization [facility] Address [address] [place] [address] Care Team Providers Care Hospital Cleaner Name Role Phone ANETA CAR M.D. Primary Care Provider Ashanti Reyes Unavailable [phone] Allergies No Known Allergies Results Component Value Reference Range Notes Urinalysis Reviewed date:03/30/2025 08:18:20 AM Interpretation: Performing Lab: Notes/Report: PH 8.0 PROTEIN Neg GLUCOSE Neg BLOOD Neg HBsAg Screen-[id number] Reviewed date:04/02/2025 07:22:28 PM Interpretation: Performing Lab:[facility], [address], [address], [place], Phone - [phone], Director - [facility] Notes/Report: Clinical Information:SRC: HBsAg Screen Negative Negative HIV Ab/p24 Ag with Reflex-08 3935 Reviewed date:04/02/2025 07:23:22 PM Interpretation: Performing Lab:[facility], [address], [address], [place], Phone - [phone], Director - [facility] Notes/Report: Clinical Information:SRC: HIV Ab/p24 Ag Screen Non Reactive Non Reactive HIV-1/HIV-2 antibodies and HIV-1 p24 antigen were NOT detected. There is no laboratory evidence of HIV infection. HIV Negative M genitalium BRIDGET, Urine-1800 25 Reviewed date:04/02/2025 07:22:41 PM Interpretation: Performing Lab:[facility], [address], [address], [place], Phone - [phone], Director - [facility] Notes/Report: Clinical Information:SRC: Mycoplasma genitalium BRIDGET Negative Negative 550885-Sgf IGP, CtNg Culture 30 Plus Reviewed date:04/01/2025 09:02:34 AM Interpretation: Performing Lab:[facility] [address], [address], [place], Phone - [phone], Director - [facility] Notes/Report: Clinical Information:Vaginal/Cervical, LMP: 03/02 02/24 [id number] LMP / Prev Treat...[id number]=[id number] Dates / Results....06/13/21 NIL, Neg HPV No. of containers..01 ThinPrep Vial DIAGNOSIS: NEGATIVE FOR IN TRAEPITHELIAL LESION OR MALIGNANCY. Specimen adequacy: Satisfactory for evaluation. Endocervical and/or squamous metaplastic cells (endocervical component) are present. Clinician provided ICD10: Z01.419 Z72.51 Performed by: Kojo Sarkar , Meal Miller (ASCP) . . Note: The Pap smear [...] Nuc. Acid Amp Negative Negative RPR Qn+TP Abs-[id number] Reviewed date:04/02/2025 07:22:53 PM Interpretation: Performing Lab:[facility], [address], [place], Phone - [phone], Director - [facility] Notes/Report: Clinical Information:SRC: Rapid Plasma Reagin, [...] utilized, such as Treponema pallidum (Syphilis) Screening [facility] (889937) or Rapid Plasma Reagin (RPR) Test With Reflex to Quantitative RPR and Confirmatory Treponema pallidum Antibodies (437012). Treponema pallidum Antibodies Non Reactive Non Reactive HCV Antibody-074111 Reviewed date:04/02/2025 07:23:12 PM Interpretation: Performing Lab:[facility], [address], [address], [place], Phone - [phone], Director - [facility] Notes/Report: Clinical Information:SRC: Hep C Virus Ab Non Reactive Non Reactive HCV antibody alone does not differentiate between previously resolved infection and active infection. Equivocal and Reactive HCV antibody results should be followed up with an HCV RNA test to support the diagnosis of active HCV infection. PDF Report Reviewed date:04/01/2025 08:59:49 AM Interpretation: Performing Lab:[facility], [address], [address], [place], Phone - [phone], Director - [facility] Notes/Report: Clinical Information:Vaginal/Cervical, LMP: 03/02 02/24 [id number] LMP / Prev Treat...[id number]=[id number] Dates / Results....06/13/21 NIL, Neg HPV No. of containers..01 ThinPrep Vial PDF Report Reviewed date:04/02/2025 07:22:14 PM Interpretation: Performing Lab:[facility], [address], [address], [place], Phone - [phone], Director - [facility] Notes/Report: Clinical Information:SRC: Reason For Referral No [...] Risk Notes Problem Excessive and frequent menstruation (411775876) Excessive and frequent menstruation with regular cycle (N92.0) Active confirmed Problem Dysmenorrhea (635659923) Dysmenorrhea, unspecified (N94.6) Active confirmed Problem Endometriosis (074697646) Endometriosis, unspecified (N80.9) Active confirmed Vital Signs Temperature 97.3 degrees Fahrenheit 03/30/2025 Blood pressure diastolic 76 mm Hg 03/30/2025 Height 65 in in 03/30/2025 Blood pressure systolic 126 mm Hg 03/30/2025 Weight 180 lbs 03/30/2025 BMI 29.95 kg/m2 03/30/2025 Encounters Encounter Location Date Provider Diagnosis [address] [place] [address] 03/30/2025 Ashanti Reynoso Encounter for gynecological examination [...] Provider Name:Ashanti watkinsdonnell, 09/08/2025 01:40:00 PM, [address], [address], [place], [address], Provider Name:Ashanti watkinsdonnell, 09/08/2025 01:40:00 PM, [address], [address], [place], [address], Provider Name:Ashanti Nguyen robertojaneydonnell, 04/04/2026 08:00:00 AM, [address], [address], [place], [address], Insurance Providers Payer Name Payer Address Payer Phone Subscriber Number Group Number Insured Name Patient Relationship to Insured Coverage Start Date Coverage End Date [facility] [address] [place] [address] [id number] ANDRY CÁRDENAS Self - patient is the insured Medical (General) History Medical History History ICD Code Dysmenorrhea, unspecified N94.6 Endometriosis, unspecified N80.9 Excessive and frequent menstruation with regular cycle N92.0 Surgical History Surgery Date(Month/Year) Bilateral Tubal Ligation - Dr. Blanton 11/08/19 S/P Oophorcystic 2008 Hospitalization History Reason Date(Month/Year) See Surgical Hx 3 Vaginal Deliveries
== END 2025-08-22 13:27 | disposition home or self-care (01) ==
LOC: HO.HMCH 13:16
PROVIDERS: PCP Internal Medicine; Visit Provider Internal Medicine
DX: E53.8 Deficiency of other specified B group vitamins (principal)

== ENCOUNTER → 2025-08-22 13:14 | Outpatient (BNVA) | payer OTHER, SELFPAY | PROVIDERS: PCP Internal Medicine; Visit Provider Internal Medicine | DX: E53.8 Deficiency of other specified B group vitamins (principal) | CPT/HCPCS: 96372; J3420 ==

== ENCOUNTER 2025-09-27 12:48 | Outpatient (AMB) | payer OTHER, SELFPAY ==
--- NOTE | 2025-09-27 12:55 | AM.OFFVISNUR ---
Intake Visit Reasons: b-12 Allergies No Known Allergies Allergy (Verified 08/01/25 15:47) Office Meds cyanocobalamin (vitamin B-12) 1,000 mcg/mL injection solution Performing Provider: Chaka Michaels MD [facility] Administered by: Marlena Livingston RN on 09/27/25 12:55 Dose Route Admin Location Dispensed Lot Number Expiration Date [facility] Technical Assistance Consultant 1,000 mcg IM 1 mL [id number] 10/01/26 51084-202-36 [employer] Total Dispensed Waste 1 mL 0 % Assessment & Plan Assessment & Plan Orders: Orders AMB Vitamin B12 Injection Patient Supplied Today E53.8 - Deficiency of other specified B group vitamins Coding
== END 2025-09-27 13:04 | disposition home or self-care (01) ==
LOC: HO.HMCH 12:48
PROVIDERS: PCP Internal Medicine; Visit Provider Internal Medicine
DX: E53.8 Deficiency of other specified B group vitamins (principal)

== ENCOUNTER → 2025-09-27 12:48 | Outpatient (BNVA) | payer OTHER, SELFPAY | PROVIDERS: PCP Internal Medicine; Visit Provider Internal Medicine | DX: E53.8 Deficiency of other specified B group vitamins (principal) | CPT/HCPCS: 96372; J3420 ==

== ENCOUNTER 2025-10-31 13:24 | Outpatient (AMB) | payer OTHER, SELFPAY ==
--- OUTSIDE RECORDS SUMMARY | 2024-06-23 09:00 | XMS_ITS ---
Author Organization [employer] [facility] Address [address] [place] [address] Care Team Providers Care Harp Action Assembler Name Role Phone ANETA CAR M.D. 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 :1980 A ge:44 Y S ex:Female Date:06/23/2024 Address:[address] [place] [address] , [facility] Pcp:ANETA CAR M.D. Subjective: * Chief Complaints: * 1 . 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 * Medical History: Objective: * Vitals: Assessment: Plan: * Treatment: * Images: Billing Information: * Visit Code: * Procedure Codes: * Electronic signature of Corwin Reynoso MD on 10/31/2025 at 05:19 PM EST Sign off status: Pending * Appointment Provider: Jalyn Reynoso M.D. Date: 0 06/23/2024 Generated for Fiorella jung/Era/Christine on: 1 05:19 PM EST
--- OUTSIDE RECORDS SUMMARY | 2024-11-14 03:00 | XMS_ITS ---
Author Organization Total [employer] [facility] Address [address] [place] [address] Care Team Providers Care Channel Executive Name Role Phone ANETA CAR M.D. Primary Care Provider Ashanti Reyes [phone] REASON FOR VISIT Annual (YELLOW FORM DONE) Encounters Encounter Location Date Provider Diagnosis [facility] [employer] [facility] [address] [place] [address] 11/14/2024 Ashanti Reynoso Plan Of Treatment Next Appt Details Provider Name:Ashanti acosta, 04/04/2026 08:00:00 AM, [address], [address], [place], [address], Progress Notes * MADISON CÁRDENASSDOB:[birth year] (45 yo F)Acc No.[id number]:11/14/2024 PROGRESS NOTES Patient: ANDRY KOCH Appointment Provider: Jalyn Reynoso M.D. :1980 A ge:44 Y S ex:Female Date:11/14/2024 Address:[address] [place] [address] , [place], [place] Pcp:ANETA CAR M.D. Subjective: * Chief Complaints: * 1 . Annual (YELLOW FORM DONE). * Medical History: Objective: * Vitals: Assessment: Plan: * Treatment: * Images: Billing Information: * Visit Code: * Procedure Codes: * Electronic signature of Corwin Reynoso MD on 10/31/2025 at 05:19 PM EST Sign off status: Pending * Appointment Provider: Jalyn Reynoso M.D. Date: 0 11/14/2024 Generated for Fiorella jung/Era/Christine on: 1 05:19 PM EST
--- OUTSIDE RECORDS SUMMARY | 2025-06-02 09:00 | XMS_ITS ---
Author Organization Total [employer] [facility] Address [address] [place] [address] Care Team Providers Care Branch Officer Name Role Phone ANETA CAR M.D. Primary Care Provider Ashanti Reyes Unavailable [phone] REASON FOR VISIT HSONO/EB/ MENORRHAGIA AND DYSMENORRHEA Encounters Encounter Location Date Provider Diagnosis [facility] [address] [place] [address] 06/02/2025 Ashanti Reynoso Plan Of Treatment Next Appt Details Provider Name:Ashanti acosta, 04/04/2026 08:00:00 AM, [address], [address], [place], [address], Progress Notes * MELIAMADISONSDOB:[birth year] (45 yo F)Acc No.[id number]:06/02/2025 Patient: ANDRY KOCH Appointment Provider: Jalyn Reynoso M.D. :1980 A ge:45 Y S ex:Female Date:06/02/2025 Address:[address] [place] [address] , [place], [place] Pcp:ANETA CAR M.D. Subjective: * Chief Complaints: * 1 . HSONO/EB/ MENORRHAGIA AND DYSMENORRHEA. * Medical History: Objective: * Vitals: Assessment: Plan: * Treatment: * Images: Billing Information: * Visit Code: * Procedure Codes: * Electronic signature of Corwin Reynoso MD on 10/31/2025 at 05:19 PM EST Sign off status: Pending * Appointment Provider: Jalyn Reynoso M.D. Date: 0 06/02/2025 Generated for Fiorella jung/Era/Christine on: 1 05:19 PM EST
--- OUTSIDE RECORDS SUMMARY | 2025-06-02 09:20 | XMS_ITS ---
Author Organization Total [employer] [facility] Address [address] [place] [address] Care Team Providers Care Mica Sizer Name Role Phone ANETA CAR M.D. Primary Care Provider Ashanti Reyes Unavailable [phone] REASON FOR VISIT HSONO/EB/ MENORRHAGIA AND DYSMENORRHEA Encounters Encounter Location Date Provider Diagnosis [facility] [employer] [place] [address] 06/02/2025 Ashanti Reynoso Plan Of Treatment Next Appt Details Provider Name:Ashanti acosta, 04/04/2026 08:00:00 AM, [address] [facility] [address], [address], [place], [address], Progress Notes * MELIAMADISONSDOB:[birth year] (45 yo F)Acc No.[id number]:06/02/2025 Patient: ANDRY KOCH Appointment Provider: Jalyn Reynoso M.D. :1980 A ge:45 Y S ex:Female Date:06/02/2025 Address:[address] [place] [address] , [place], [place] Pcp:ANETA CAR M.D. Subjective: * Chief Complaints: [...]
--- OUTSIDE RECORDS SUMMARY | 2025-07-27 08:00 | XMS_ITS ---
Author Organization [facility] Address [address] [address] Care Team Providers Care Wool Grower Name Role Phone JOSEP Sanchez, ANETA Primary Care Provider Ashanti Reyes [phone] REASON FOR VISIT HSONO/EB/ MENORRHAGIA AND DYSMENORRHEA (ORANGE FORM DONE) Encounters Encounter Location Date Provider Diagnosis [facility] [address] [address] 07/27/2025 Ashanti Reynoso Plan Of Treatment Next Appt Details Provider Name:Ashanti acosta, 04/04/2026 08:00:00 AM, [address] [place] [address], [address], [place], [address], Progress Notes * MELIAMADISONSDOB:[birth year] (45 yo F)Acc No.[id number]:07/27/2025 Patient: Blas BAE ANDRY Appointment Provider: Jalyn Reynoso M.D. :1980 A ge:45 Y S ex:Female Date:07/27/2025 Address:[address] [place] [address] [address] , [place], [place] Pcp:ANETA CAR M.D. Subjective: * Chief Complaints: * 1 . HSONO/EB/ MENORRHAGIA AND DYSMENORRHEA (ORANGE FORM DONE). * Medical History: Objective: * Vitals: Assessment: Plan: * Treatment: * Images: Billing Information: * Visit Code: * Procedure Codes: * Electronic signature of Corwin Reynoso MD on 10/31/2025 at 05:19 PM EST Sign off status: Pending * Appointment Provider: Jalyn Reynoso M.D. Date: 0 07/27/2025 Generated for Fiorella jung/Era/Christine on: 1 05:19 PM EST
--- OUTSIDE RECORDS SUMMARY | 2025-07-27 08:10 | XMS_ITS ---
Author Organization Total [employer] [facility] Address [address] [facility] [address] [place] [address] Care Team Providers Care Supervisor Brew House Name Role Phone ANETA CAR M.D. Primary Care Provider Ashanti Reyes Unavailable [phone] REASON FOR VISIT HSONO/EB/ MENORRHAGIA AND DYSMENORRHEA Encounters Encounter Location Date Provider Diagnosis [facility] [employer] [place] [address] 07/27/2025 Ashanti Reynoso Plan Of Treatment Next Appt Details Provider Name:Ashanti acosta, 04/04/2026 08:00:00 AM, [address] [place] [address], [facility] [address], [place], [address], Progress Notes * MELIAMADISONSDOB:[birth year] (45 yo F)Acc No.[id number]:07/27/2025 Patient: ANDRY KOCH Appointment Provider: Jalyn Reynoso M.D. :1980 A ge:45 Y S ex:Female Date:07/27/2025 Address:[address] [place] [address] , [place] Pcp:ANETA CAR M.D. Subjective: * Chief Complaints: [...]
--- NOTE | 2025-10-31 13:35 | AM.OFFVISNUR ---
Intake Visit Reasons: B12 Shot Allergies No Known Allergies Allergy (Verified 08/01/25 15:47) Nursing Note Patient in for monthly B12 injection. Patient was not aware she is getting charged for B12 visits and would prefer to do B12 injections at home. Spoke with Dr. Michaels and updated above and Dr. Michaels approved. New script sent to pharmacy for syringes. Office Meds cyanocobalamin (vitamin B-12) 1,000 mcg/mL injection solution Performing Provider: Chaka Michaels MD [facility] Administered by: Daysi Stovall LPN on 10/31/25 13:35 Dose Route Admin Location Dispensed Lot Number Expiration Date [facility] Airline Dispatcher 1,000 mcg IM right deltoid 1 mL [id number] 10/01/26 74013-107-30 [employer] Total Dispensed Waste 1 mL 0 % Assessment & Plan Assessment & Plan Orders: Orders AMB Vitamin B12 Injection Patient Supplied Today E53.8 - Deficiency of other specified B group vitamins Medications: New insulin syringe-needle U-100 ([facility] [employer]) As directed- once monthly for B12 injection 10 ea 0RF Coding
--- OUTSIDE RECORDS SUMMARY | 2025-10-31 17:19 | XMS_ITS | Patient Health Record ---
Author Organization [facility] Address [address] [place] [address] Care Team Providers Care Home Health Nurse Licensed Practical Name Role Phone ANETA CAR M.D. Primary Care Provider Ashanti Reyes Unavailable [phone] Allergies No Known Allergies Results Component Value Reference Range Notes SURGICAL PATHOLOGY Reviewed date:09/13/2025 07:47:10 AM Interpretation: Performing Lab:Testing performed or reported by [facility], a Service of [facility], [address] [place] [address] Lenin Munoz MD, System Dispatcher CLIA# [id number] Notes/Report: Patient Name: ANDRY CÁRDENAS Lab Patient : 1980 (Age: 45) Collection Date: 09/08/2025 Accession Date: 09/08/2025 Sign Out Date: 09/12/2025 Tissue Source: 1:EMBX Final Diagnosis: Endometrium, biopsy: - Proliferative endometrium Primary Pathologist:Scott Boswell M.D. electronically signed out by: Scott Boswell M.D. / DELORES Clinical History: Excessive and frequent menstruation with regular cycle Gross Description: Labeled endometrial biopsy . Received in formalin is a 2.2 x 1.6 x 0.2 cm aggregate of predominately translucent mucus with red, smith tissue. The specimen is entirely submitted. 1-multiple pieces, x 2. (EG)* As of January 09, 2024, the specimen processing and staining is performed at [facility], [address] [place] [address] (CLIA#[id number]). Its performance characteristics determined by [facility]. Zeinab Painting M.D. System Dispatcher of Surgical Pathology, Elijah Oakley M.D. System Dispatcher Cytopathology Phone #: [phone], On-Call Pathologist: [id number] PDF Report Reviewed date:04/01/2025 08:59:49 AM Interpretation: Performing Lab:[facility], [address], [address], [place], Phone - [phone], [facility] Notes/Report: Clinical Information:Vaginal/Cervical, LMP: 03/02 02/24 [id number] LMP / Prev Treat...QAE=[id number] Dates / Results....06/13/21 NIL, Neg HPV No. of containers..01 ThinPrep Vial PDF Report Reviewed date:04/02/2025 07:22:14 PM Interpretation: Performing Lab:[facility], [address], [address], [place], Phone - [phone], [facility] Notes/Report: Clinical Information:SRC: Urinalysis Reviewed date:03/30/2025 08:18:20 AM Interpretation: Performing Lab: Notes/Report: PH 8.0 PROTEIN Neg GLUCOSE Neg BLOOD Neg HBsAg Screen-[id number] Reviewed date:04/02/2025 07:22:28 PM Interpretation: Performing Lab:[facility], [address], [address], [place], Phone - [phone], [facility] Notes/Report: Clinical Information:SRC: HBsAg Screen Negative Negative HIV Ab/p24 Ag with Reflex-08 3935 Reviewed date:04/02/2025 07:23:22 PM Interpretation: Performing Lab:[facility], [address], [address], [place], Phone - [phone], Director - [facility] Notes/Report: Clinical Information:SRC: HIV Ab/p24 Ag Screen Non Reactive Non Reactive HIV-1/HIV-2 antibodies and HIV-1 p24 antigen were NOT detected. There is no laboratory evidence of HIV infection. HIV Negative M genitalium BRIDGET, Urine-1800 25 Reviewed date:04/02/2025 07:22:41 PM Interpretation: Performing Lab:[facility], [address], [place], Phone - [phone], Director - [facility] Notes/Report: Clinical Information:SRC: Mycoplasma genitalium BRIDGET Negative Negative 963090-Hge IGP, CtNg Culture 30 Plus Reviewed date:04/01/2025 09:02:34 AM Interpretation: Performing Lab:[facility], [address], [place], Phone - [phone], Director - [facility] Notes/Report: Clinical Information:Vaginal/Cervical, LMP: 03/02 02/24 [id number] LMP / Prev Treat...NNY=[id number] Dates / Results....06/13/21 NIL, Neg HPV No. of containers..01 ThinPrep Vial DIAGNOSIS: NEGATIVE FOR INTRAEPITHELIAL LESION OR MALIGNANCY. Specimen adequacy: Satisfactory for evaluation. Endocervical and/or squamous metaplastic cells (endocervical component) are present. Clinician provided ICD10: Z01.419 Z72.51 Performed by: Kojo Sarkar , Staffing Assistant (ASCP) . . Note: The Pap [...] amplification test detects fourteen high-risk HPV types (16,18,31,33,35,39,45,51,5 2,56,58,59,66,68) without differentiation. HPV Genotype Reflex Criteria not met, HPV Genotype not performed. Chlamydia, Nuc. Acid Amp Negative Negative Gonococcus, Nuc. Acid Amp Negative Negative RPR Qn+TP Abs-[id number] Reviewed date:04/02/2025 07:22:53 PM Interpretation: Performing Lab:[facility], [address], [place], Phone - [phone], Director - [facility] Notes/Report: Clinical Information:SRC: Rapid Plasma Reagin, [...] utilized, such as Treponema pallidum (Syphilis) Screening [place] (315349) or Rapid Plasma Reagin (RPR) Test With Reflex to Quantitative RPR and Confirmatory Treponema pallidum Antibodies (872962). Treponema pallidum Antibodies Non Reactive Non Reactive HCV Antibody-857109 Reviewed date:04/02/2025 07:23:12 PM Interpretation: Performing Lab:[facility], [address], [address], [place], Phone - [phone], Director - [facility] Notes/Report: Clinical Information:SRC:UC Hep C Virus Ab Non Reactive Non Reactive HCV antibody alone does not differentiate between previously resolved infection and active infection. Equivocal and Reactive HCV antibody results should be followed up with an HCV RNA test to support the diagnosis of active HCV infection. Reason For Referral No Information Social History [...] Risk Notes Problem Excessive and frequent menstruation (255693359) Excessive and frequent menstruation with regular cycle (N92.0) Active confirmed Problem Dysmenorrhea (336682985) Dysmenorrhea, unspecified (N94.6) Active confirmed Problem Endometriosis (967349949) Endometriosis, unspecified (N80.9) Active confirmed Vital Signs Temperature 97.4 degrees Fahrenheit 10/05/2025 Blood pressure diastolic 80 mm Hg 10/05/2025 Height 65 in 10/05/2025 Blood pressure systolic 128 mm Hg 10/05/2025 Weight 180 lbs 10/05/2025 BMI 29.95 kg/m2 10/05/2025 Encounters Encounter Location Date Provider Diagnosis Total [address] [place] [address] 03/30/2025 Ashanti Reynoso Encounter for gynecological examination (general) (routine) without abnormal findings Z01.419 ; High risk heterosexual behavior Z72.51 ; Encounter for screening mammogram for malignant neoplasm of breast Z12.31 ; Excessive and frequent menstruation with regular cycle N92.0 and Dysmenorrhea, unspecified N94.[address] [address] 09/08/2025 Ashanti Reynoso Excessive and freque nt menstruation with regular cycle N92.[address] [address] 10/05/2025 Ashanti Reynoso Excessive and freque nt menstruation with regular cycle N92.0 Assessments Encounter Date Diagnosis (ICD Code) Assessment Notes Treatment Notes Treatment Clinical Notes Section Notes 03/30/2025 Encounter for gynecological examination (general) (routine) without abnormal findings (ICD-10 - Z01.419) PAP TEST WITH HPV TYPING WAS OBTAINED. 09/08/2025 Excessive and frequent menstruation with regular cycle (ICD-10 - N92.0) DISCUSSED NORMAL HSONO FINDINGS. EMB WAS OBTAINED AND SENT TO PATHOLOGY. ADVISED PAT TO RETURN IN A WEEK TO DISCUSS RESULTS AND TX OPTIONS. SHE WILL BE A GOOD CANDIDATE FOR MIRENA IUD. 10/05/2025 Excessive and frequent menstruation with regular cycle (ICD-10 - N92.0) DISCUSSED HSONO AND EMB RESULTS. DISCUSSED TX OPTIONS INCLUDING MIRNEA IUD, LOW DOSE OCP'S. TRANEXAMIC ACID. BENEFITS AND RISKS OF EACH WERE DISCUSSED. SHE WILL THINK ABOUT HER OPTIONS AND WILL GIVE US A CALL BACK. SHE IS LEANING MORE TOWARDS MIRENA IUD. THIS IS SAFER, EASIER AND WILL ALSO DECREASE MENOPAUSAL SYMPTOMS IN THE FUTURE. 03/30/2025 High risk heterosexual behavior (ICD-10 - [...] Test Name Order Date Urinalysis 03/07/2019 Urinalysis 06/18/2022 Urinalysis 02/08/2018 THIN PREP,HPV,DARNELL IF HPV+/CYT-,CT/GC(>2 9YR)(SCRN) 02/08/2018 MM Digital Mammo Screening 02/08/2018 MM Digital Mammo Screening 03/07/2019 MM Digital Mammo Screening 05/09/2020 MM Digital Mammo Screening 06/13/2021 MM Digital Mammo Screening 07/02/2021 MM Digital Mammo Screening 06/18/2022 Next Appt Details Provider Name:Ashanti acosta, 04/04/2026 08:00:00 AM, [address], [address], [place], [address], Insurance Providers Payer Name Payer Address Payer Phone Subscriber Number Group Number Insured Name Patient Relationship to Insured Coverage Start Date Coverage End Date [facility] [address] [place] [address] [phone] [id number] ANDRY CÁRDENAS Self - patient is the insured Medical (General) History Medical History History ICD Code Dysmenorrhea, unspecified N94.6 Endometriosis, unspecified N80.9 Excessive and frequent menstruation with regular cycle N92.0 Surgical History Surgery Date(Month/Year) Bilateral Tubal Ligation - Dr. Blnaton 11/08/19 S/P Oophorcystic 2008 HSONO/Endometrial Biopsy Colonoscopy 2024 Hospitalization History Reason Date(Month/Year) See Surgical Hx 3 Vaginal Deliveries
== END 2025-10-31 13:37 | disposition home or self-care (01) ==
LOC: HO.HMCH 13:24
PROVIDERS: PCP Internal Medicine; Visit Provider Internal Medicine
DX: E53.8 Deficiency of other specified B group vitamins (principal)

== ENCOUNTER → 2025-10-31 13:24 | Outpatient (BNVA) | payer OTHER, SELFPAY | PROVIDERS: PCP Internal Medicine; Visit Provider Internal Medicine | DX: E53.8 Deficiency of other specified B group vitamins (principal) | CPT/HCPCS: 96372; J3420 ==